=== PATIENT | male | born 1955 | race Caucasian/White ===

== ENCOUNTER 2018-08-14 15:27 | Inpatient (IN) ==
[2018-08-14] MEDS ORDERED: Aspirin 81 MG TAB.CHEW PO ONE (15:44)
[2018-08-14] MEDS ORDERED: *HR* FentaNYL (PF) 100 MCG/2 ML VIAL IVP ONE ×2 (15:45→16:40)
[2018-08-14] MEDS: Nitroglycerin 0.4 MG TAB.SUBL SL ONE ×2 (15:57→16:03)
[2018-08-14] MEDS: Nitroglycerin 25 MG/250 ML INFUS..BTL IVC SCH ×2 (15:59→21:25)
--- NOTE | 2018-08-14 16:04 | Emergency Department Note ---
Disposition Clinical Impression: Chest pain Qualifiers: Chest pain type: unspecified Qualified Code(s): R07.9 - Chest pain, unspecified Disposition: Admitted As Inpatient Condition: Fair Chest Pain HPI - General Chief Complaint: ED Chest Pain Stated Complaint: chest pain,"bp through the roof" Time Seen by Provider: 08/14/18 15:33 Source: patient Mode of arrival: ambulatory Limitations: no limitations Vital Signs Reviewed: Yes Nursing Notes Reviewed: Yes - History of Present Illness HPI Narrative: Patient with significant cardiac history including 13 previous cardiac stents as well as a pacemaker which was placed secondary to cardiac arrest presents to the emergency department for evaluation of chest pain and hypertension. Patient 's chest pain started approximately 1 PM. Patient was sitting on the couch watching television. Patient checks his blood pressure was found to be elevated. Patient did take at home nitroglycerin which has decreased his pain but it continues to return after approximately 10-15 minutes. The patient is here complaining of 10 out of 10 chest pain that is in the center of his chest described as a pressure radiating to both the left arm as well as the neck. Associated nausea and diaphoresis with chest pain is at its worse. Patient's initial EKG shows T-wave inversions throughout the anterior leads without significant elevations or depressions. A posterior EKG was performed which did not show any elevations within the 70 8V9. Despite the negative STEMI criteria call has been placed interventional cardiology to discuss the case given his significant cardiac history and small area of chest pain with previous requirement of stent placement. The patient is receiving 3 nitroglycerin as well as starting a nitroglycerin drip. Mark has been ordered chest pain is not resolved. Blood work has been ordered and patient will be admitted for further evaluation and management. Severity scale (1-10): 9 - Related Data Home Medications Medication Instructions Recorded Confirmed Carvedilol [Coreg] 25 mg PO BID 08/14/18 08/14/18 Cholecalciferol (D-3) [Vitamin D] 1,000 unit PO DAILY 08/14/18 08/14/18 Escitalopram [Lexapro] 10 mg PO DAILY 08/14/18 08/14/18 Finasteride [Proscar] 5 mg PO DAILY 08/14/18 08/14/18 Gabapentin [Neurontin] 600 mg PO TID 08/14/18 08/14/18 Lisinopril [Zestril] 20 mg PO DAILY 08/14/18 08/14/18 Pantoprazole Sodium [Protonix] 40 mg PO DAILY 08/14/18 08/14/18 Ranolazine [Ranexa] 1,000 mg PO BID 08/14/18 08/14/18 Tamsulosin [Flomax] 0.4 mg PO DAILY 08/14/18 08/14/18 Vitamin E 1,000 unit PO DAILY 08/14/18 08/14/18 lamoTRIgine [Lamictal] 100 mg PO BID 08/14/18 08/14/18 Allergies Allergy/AdvReac Type Severity Reaction Status Date / Time hydrochlorothiazide Allergy Hives Verified 08/14/18 16:04 sumatriptan [From Imitrex] Allergy Anaphylaxis Verified 08/14/18 16:04 Review of Systems: CONSTITUTIONAL: No weight loss, fever, chills, weakness or fatigue. HEENT: Eyes: No visual changes. Ears, Nose, Throat: No hearing loss, difficulty talking or unable to swallow. SKIN: No rash or itching. CARDIOVASCULAR: Chest pressure with radiation to the arm and jaw RESPIRATORY: No shortness of breath, cough or sputum. GASTROINTESTINAL: No anorexia, nausea, vomiting or diarrhea. No abdominal pain or blood. GENITOURINARY: No burning on urination or hematuria. NEUROLOGICAL: No headache, dizziness, syncope, paralysis, ataxia, numbness or tingling in the extremities. No change in bowel or bladder control. MUSCULOSKELETAL: No muscle pain, back pain, joint pain or stiffness. Physical Exam General: Moderate distress secondary to pain Head: Normocephalic Atraumatic Eyes: PERRL, EOMI ENT: Airway patent, no stridor Neck: supple Chest: Lungs clear to auscultation bilateral Cardiac: Regular rate and rhythm, no murmurs, rubs or gallops Abdomen: soft, mild right-sided tenderness, nondistended; no guarding, rebound, or tenderness to percussion Musculoskeletal: Calves symmetric, nontender Skin: No rash, normal skin tone Neuro: Alert and Oriented to person, place, and time; No focal deficit Course - Reevaluation(s) Reevaluation #1: Patient with significant cardiac history and continues to complain of severe chest pain. Patient did undergo chest pain evaluation with negative cardiac enzymes 2. Due to the continued complaints of chest pain and radiation to the back did receive a CTA to rule out dissection. No dissection seen on CAT scan. Patient will be admitted to the hospitalist service. Cardiology was consulted. - Consultations Consultation #1: Discussed with Dr. Norton at 1630. Recommends Brjlinta. Continue nitroglycerin and call back once troponin has resulted. Vital Signs Temperature 98.2 F 08/14/18 15:34 Pulse Rate 79 08/14/18 15:34 Respiratory Rate 16 08/14/18 15:34 Blood Pressure 205/136 08/14/18 15:34 O2 Sat by Pulse Oximetry 97 08/14/18 15:34 Temperature 98.6 F 08/14/18 23:33 Pulse Rate 67 08/15/18 00:00 Respiratory Rate 18 08/14/18 23:33 Blood Pressure 140/91 08/15/18 00:00 O2 Sat by Pulse Oximetry 95 08/14/18 23:33 Oxygen Delivery Oxygen Delivery Room Air Chest Pain - Medical Records Medical records reviewed: Yes I reviewed the patient's medical records. - Lab Data Lab results reviewed: Yes I reviewed the patient's lab results. Result diagrams: 08/14/18 15:58 08/14/18 15:58 Lab Results 08/14/18 08/14/18 08/14/18 Range/Units 15:58 15:58 15:58 WBC 5.2 (4.3-11.1) K/mcL RBC 4.65 (4.19-5.50) M/mcL Hgb 14.6 (12.9-16.9) g/dL Hct 42.8 (37.5-50.1) % MCV 92.0 (83.0-100.0) fL MCH 31.4 (28.0-33.3) pg MCHC 34.1 (31.6-35.5) g/dL RDW 12.8 (11.5-14.5) % Plt Count 236 (140-400) K/mcL MPV 9.3 L (9.4-12.4) fL Immature Gran % 0.2 (0-4) % Seg Neutrophils % 36.0 % Lymphocytes % 50.8 % Monocytes % 9.5 % Eosinophils % 2.5 % Basophils % 1.0 % Neutrophils # 1.9 (1.6-8.9) K/mcL Lymphocytes # 2.6 (0.6-4.6) K/mcL Monocytes # 0.5 (0.0-1.3) K/mcL Eosinophils # 0.1 (0.0-0.6) K/mcL Basophils # 0.1 (0.0-0.2) K/mcL PT 11.5 (9.4-12.1) Seconds INR 1.0 Sodium 139 (136-145) mEq/L Potassium 4.3 (3.5-5.1) mEq/L Chloride 106 (98-107) mEq/L Carbon Dioxide 26 (23-29) mEq/L BUN 16 (8-23) mg/dL Creatinine 1.20 (0.70-1.30) mg/dL Est GFR ( Amer) > 60 (> 60) Est GFR (Non-Af Amer) > 60 (> 60) BUN/Creatinine Ratio 13 (6-26) Glucose 92 (70-105) mg/dL Calculated Osmolality 289 (280-300) Calcium 9.3 (8.6-10.3) mg/dL Troponin I < 0.03 (< 0.04) ng/mL B-Natriuretic Peptide (Less than 100) pg/mL 08/14/18 08/14/18 08/14/18 Range/Units 15:58 18:21 19:45 WBC (4.3-11.1) K/mcL RBC (4.19-5.50) M/mcL Hgb (12.9-16.9) g/dL Hct (37.5-50.1) % MCV (83.0-100.0) fL MCH (28.0-33.3) pg MCHC (31.6-35.5) g/dL RDW (11.5-14.5) % Plt Count (140-400) K/mcL MPV (9.4-12.4) fL Immature Gran % (0-4) % Seg Neutrophils % % Lymphocytes % % Monocytes % % Eosinophils % % Basophils % % Neutrophils # (1.6-8.9) K/mcL Lymphocytes # (0.6-4.6) K/mcL Monocytes # (0.0-1.3) K/mcL Eosinophils # (0.0-0.6) K/mcL Basophils # (0.0-0.2) K/mcL PT (9.4-12.1) Seconds INR Sodium (136-145) mEq/L Potassium (3.5-5.1) mEq/L Chloride (98-107) mEq/L Carbon Dioxide (23-29) mEq/L BUN (8-23) mg/dL Creatinine (0.70-1.30) mg/dL Est GFR ( Amer) (> 60) Est GFR (Non-Af Amer) (> 60) BUN/Creatinine Ratio (6-26) Glucose (70-105) mg/dL Calculated Osmolality (280-300) Calcium (8.6-10.3) mg/dL Troponin I < 0.03 < 0.03 (< 0.04) ng/mL B-Natriuretic Peptide 21 (Less than 100) pg/mL - Radiology Data Radiology results reviewed: Yes I reviewed the patient's radiology results. - EKG Data EKG attestation: Yes I reviewed and interpreted this EKG. EKG results narrative: EKG shows sinus rhythm with heart rate of 82. OH interval 166. QRS 133. QTC 450. Patient has no significant ST elevations or depressions but does have T- wave inversions throughout V1 and V3. These are new from previous EKG of . Repeat EKG with posterior leads shows no significant elevations throughout the v7 the v8 V 9.
[2018-08-14] MEDS ORDERED: 0.9 % Sodium Chloride 500 ML IVC ONE (16:05)
[2018-08-14 16:18] LABS: Basophils # 0.1 K/mcL (0.0-0.2); Eosinophils # 0.1 K/mcL (0.0-0.6); Eosinophils % 2.5 %; Hematocrit 42.8 % (37.5-50.1); Hemoglobin 14.6 g/dL (12.9-16.9); Immature Granulocytes % 0.2 % (0-4); Lymphocytes # 2.6 K/mcL (0.6-4.6); Lymphocytes % 50.8 %; Mean Corpuscular HGB Conc 34.1 g/dL (31.6-35.5); Mean Corpuscular Hemoglobin 31.4 pg (28.0-33.3); Mean Platelet Volume 9.3 fL (9.4-12.4); Monocytes # 0.5 K/mcL (0.0-1.3); Monocytes % 9.5 %; Neutrophils # 1.9 K/mcL (1.6-8.9); Platelet Count 236 K/mcL (140-400); Red Blood Count 4.65 M/mcL (4.19-5.50); Red Cell Distribution Width 12.8 % (11.5-14.5)
[2018-08-14] MEDS ORDERED: *HR* Ticagrelor 90 MG TABLET PO STA (16:29)
[2018-08-14 16:37] LABS: Troponin I < 0.03 ng/mL (< 0.04)
[2018-08-14 16:41] LABS: BUN/Creatinine Ratio 13 (6-26); Blood Urea Nitrogen 16 mg/dL (8-23); Calcium 9.3 mg/dL (8.6-10.3); Carbon Dioxide 26 mEq/L (23-29); Chloride 106 mEq/L (98-107); Glucose 92 mg/dL (70-105); Osmolality,Calculated 289 (280-300); Potassium 4.3 mEq/L (3.5-5.1); Prothrombin Time 11.5 Seconds (9.4-12.1); Sodium 139 mEq/L (136-145); eGFR For Non-African Americans > 60 (> 60)
[2018-08-14] MEDS ORDERED: Isovue-370 500 ML INFUS..BTL IV ONE ×2 (16:41→17:01)
[2018-08-14] MEDS ORDERED: *HR* OxyCODONE Immed Rel 5 MG TABLET PO STA (18:16)
[2018-08-14] MEDS ORDERED: Acetaminophen 325 MG TABLET PO PRN (18:46)
[2018-08-14] MEDS ORDERED: Naloxone 0.4 MG/ML INJ IVP PRN (18:46)
[2018-08-14] MEDS ORDERED: *HR* OxyCODONE Immed Rel 5 MG TABLET PO PRN (18:48)
--- NOTE | 2018-08-14 18:53 | Internal Med History&Physical ---
Date of Encounter: 08/14/18 Time of Encounter: 18:51 Internal Medicine - H&P: HPI Admitted From: Home Plans for Post Hospital Care: Home History of present illness: Mr. Bingham is a 63 year old male with significant cardiac history including 13 previous cardiac stents as well as a pacemaker which was placed secondary to cardiac arrest presents to the emergency department for evaluation of chest pain and hypertension. Patient's chest pain started approximately 1 PM. Patient was sitting on the couch watching television. Patient checks his blood pressure was found to be elevated. Patient did take at home nitroglycerin which has decreased his pain but it continues to return after approximately 10- 15 minutes. The patient is here complaining of 10 out of 10 chest pain that is in the center of his chest described as a pressure radiating to both the left arm as well as the neck. Associated nausea and diaphoresis with chest pain is at its worse. Patient's initial EKG shows T-wave inversions throughout the anterior leads without significant elevations or depressions. A posterior EKG was performed which did not show any elevations within the 70 8V9. Despite the negative STEMI criteria call has been placed interventional cardiology to discuss the case given his significant cardiac history and small area of chest pain with previous requirement of stent placement. The patient is receiving 3 nitroglycerin as well as starting a nitroglycerin drip. Blood work has been ordered and patient will be admitted for further evaluation and management. Past Med Surg Social Fam HX - Past Medical History Medical history: hyperlipidemia, hypertension, myocardial infarction Additional medical history: 13 cardiac stents. Pacemaker. Hemaplegic migraines Psychiatric history: depression - Past Surgical History Additional surgical history: Left rotator cuff repair - Social History Smoking Status: Never smoker Smokeless Tobacco Status: No Alcohol use: none Drug use: marijuana - Family History Father Family Member Ethnicity: Non- Living Status: Age at : 80 Cause of : ND Hx Family Neurologic Disorders: Yes (Alzheimers) Mother Family Member Ethnicity: Non- Living Status: Age at : 76 Hx Family Cardiac Disorders: Yes (ND, Quad bypass) Hx Family Neurologic Disorders: Yes (Alzheimers) Brother Living Status: Age at : 46 Cause of : Complications from AIDS Internal Medicine - H&P: Meds Carvedilol [Coreg] 25 mg PO BID 08/14/18 [History] Cholecalciferol (D-3) [Vitamin D] 1,000 unit PO DAILY 08/14/18 [History] Escitalopram [Lexapro] 10 mg PO DAILY 08/14/18 [History] Finasteride [Proscar] 5 mg PO DAILY 08/14/18 [History] Gabapentin [Neurontin] 600 mg PO TID 08/14/18 [History] Lisinopril [Zestril] 20 mg PO DAILY 08/14/18 [History] Pantoprazole Sodium [Protonix] 40 mg PO DAILY 08/14/18 [History] Ranolazine [Ranexa] 1,000 mg PO BID 08/14/18 [History] Tamsulosin [Flomax] 0.4 mg PO DAILY 08/14/18 [History] Vitamin E 1,000 unit PO DAILY 08/14/18 [History] lamoTRIgine [Lamictal] 1,000 mg PO BID 08/14/18 [History] 3 Allergy/AdvReac Type Severity Reaction Status Date / Time hydrochlorothiazide Allergy Hives Verified 08/14/18 16:04 sumatriptan [From Imitrex] Allergy Anaphylaxis Verified 08/14/18 16:04 All Systems PM: A 10-system review of systems was performed and is negative for pertinent findings except as documented above in the HPI. Review of systems: REVIEW OF SYSTEMS: CONSTITUTIONAL: No weight loss, fever, chills, weakness or fatigue. HEENT: Eyes: No visual loss, blurred vision, double vision or yellow sclerae. Ears, Nose, Throat: No hearing loss, sneezing, congestion, runny nose or sore throat. SKIN: No rash or itching. CARDIOVASCULAR: see HPI. RESPIRATORY: No shortness of breath, cough or sputum. GASTROINTESTINAL: No anorexia, nausea, vomiting or diarrhea. No abdominal pain or blood. GENITOURINARY: No dysuria, urgency, or frequency. NEUROLOGICAL: No headache, dizziness, syncope, paralysis, ataxia, numbness or tingling in the extremities. No change in bowel or bladder control. MUSCULOSKELETAL: No muscle, back pain, joint pain or stiffness. HEMATOLOGIC: No anemia, bleeding or bruising. LYMPHATICS: No enlarged nodes. No history of splenectomy. PSYCHIATRIC: No history of depression or anxiety. ENDOCRINOLOGIC: No reports of sweating, cold or heat intolerance. No polyuria or polydipsia. - Constitutional Vitals: Temp Pulse Resp BP Pulse Ox 98.2 F 77 16 140/93 98 08/14/18 16:37 08/14/18 18:45 08/14/18 18:45 08/14/18 18:45 08/14/18 18:45 General appearance: Present: cooperative, A&O X 3, answers questions appropriately Exam: PHYSICAL EXAMINATION: GENERAL APPEARANCE: The patient is alert, oriented and in no acute distress. HEENT: Head is normocephalic. The sinuses are nontender. Pupils are equal and reactive. The nares are patent. Oropharynx clear without lesions. NECK: Supple without lymphadenopathy. HEART: Regular rate and rhythm. LUNGS: No crackles or wheezes are heard. ABDOMEN: Soft, nontender, nondistended with good bowel sounds heard. Inguinal area is normal. EXTREMITIES: Without cyanosis, clubbing or edema. NEUROLOGICAL: Gross nonfocal. SKIN: Warm and dry without any rash. Internal Med - H&P Results - Labs CBC & Chem 7: 08/14/18 15:58 08/14/18 15:58 Labs: Short CBC 08/14/18 Range/Units 15:58 WBC 5.2 (4.3-11.1) K/mcL Hgb 14.6 (12.9-16.9) g/dL Hct 42.8 (37.5-50.1) % Plt Count 236 (140-400) K/mcL Neutrophils # 1.9 (1.6-8.9) K/mcL BMP 08/14/18 15:58 Sodium 139 Potassium 4.3 Chloride 106 Carbon Dioxide 26 BUN 16 Creatinine 1.20 Glucose 92 Calcium 9.3 Cardiac Enzymes 08/14/18 Range/Units 15:58 Troponin I < 0.03 (< 0.04) ng/mL - Impressions ITS Impressions Chest X-Ray 08/14/18 15:35 IMPRESSION: Blunting of right costophrenic sulcus could suggest small right pleural effusion. Continued follow-up could be helpful for further evaluation. D/ / Fidencio Ling / Fidencio Ling Interpreting Provider: Fidencio Ling Angiography CT 08/14/18 16:41 IMPRESSION: No evidence of thoracic or abdominal aortic aneurysm or dissection. Ectasia of the ascending thoracic aorta. No evidence of acute pulmonary embolism. No active lung parenchymal or pleural disease. No acute abnormalities in the abdomen or pelvis. D/ / 08/14/2018 17:39:58 Rosita Vaughan MD / hannah Interpreting Provider: Rosita Vaughan MD - Assessment and plan (1) Chest pain Current Visit: Yes Status: Acute Assessment and plan: 63-year-old male with history of CAD status post multiple stents placement presented with acute onset of left-sided chest pain. Troponin was negative at the ED, EKG revealed sinus rhythm with right bundle branch block, no acute ST-T change. CT of the chest revealed no PE, no aortic dissection or aneurysm, no other acute abnormalities in both lungs. - Patient symptoms was suspicious for unstable angina, patient was started on nitro drip, he received 1 dose of Brilinta at the ED. Patient chest pain improved. - We will continue cycle troponin, telemetry monitoring, EKG as needed. - Cardiology consulted. Qualifiers: Chest pain type: unspecified Qualified Code(s): R07.9 - Chest pain, unspecified (2) CAD (coronary artery disease) Current Visit: No Status: Chronic Assessment and plan: Continue home medication aspirin, patient received 1 dose of Brilinta at the ED , continue nitro drip, consult cardiology. Qualifiers: Coronary Disease-Associated Artery/Lesion type: [place] artery [place] vs. transplanted heart: [place] heart Associated angina: with unstable angina Qualified Code(s): I25.110 - Atherosclerotic heart disease of [place] coronary artery with unstable angina pectoris (3) HTN (hypertension) Current Visit: No Status: Chronic Assessment and plan: BP was notably high at the ED, continue home medication, continue nitro drip, continue monitor BP. Qualifiers: Hypertension type: essential hypertension Qualified Code(s): I10 - Essential (primary) hypertension (4) DVT prophylaxis Current Visit: Yes Status: Acute Assessment and plan: Heparin subcutaneous. - Time Spent With Patient Total time spent is greater than 50% in coordination of care (as documented) at patient's floor/unit and/or counseling patient: Greater than 35 minutes
[2018-08-14] MEDS: Ranolazine 500 MG TAB.ER.12H PO SCH (21:24)
[2018-08-14] MEDS: Gabapentin 300 MG CAPSULE PO SCH (21:24)
[2018-08-14] MEDS: lamoTRIgine 100 MG TABLET PO SCH (21:24)
[2018-08-14] MEDS: *HR* OxyCODONE Immed Rel 5 MG TABLET PO PRN (22:52)
[2018-08-15] MEDS ORDERED: *HR* FentaNYL (PF) 100 MCG/2 ML VIAL IVP ONE ×3 (00:52→06:58)
[2018-08-15 03:04] LABS: Basophils % 0.6 %; Eosinophils # 0.2 K/mcL (0.0-0.6); Eosinophils % 2.6 %; Hematocrit 36.2 % (37.5-50.1); Immature Granulocytes % 0.3 % (0-4); Lymphocytes # 2.3 K/mcL (0.6-4.6); Lymphocytes % 31.3 %; Mean Corpuscular Hemoglobin 31.1 pg (28.0-33.3); Mean Corpuscular Volume 91.4 fL (83.0-100.0); Monocytes # 0.8 K/mcL (0.0-1.3); Monocytes % 10.6 %; Neutrophils # 3.9 K/mcL (1.6-8.9); Platelet Count 212 K/mcL (140-400); Red Blood Count 3.96 M/mcL (4.19-5.50); Red Cell Distribution Width 12.7 % (11.5-14.5); Segmented Neutrophils % 54.6 %
[2018-08-15 03:30] LABS: BUN/Creatinine Ratio 11 (6-26); Blood Urea Nitrogen 14 mg/dL (8-23); Calcium 8.7 mg/dL (8.6-10.3); Carbon Dioxide 29 mEq/L (23-29); Chloride 101 mEq/L (98-107); Chol/HDL Ratio 6.7 (0-4.9); Cholesterol 253 mg/dL (< 200); Glucose 124 mg/dL (70-105); HDL Cholesterol 38 mg/dL (40-59); Magnesium 1.8 mg/dL (1.6-2.6); Osmolality,Calculated 286 (280-300); Potassium 3.8 mEq/L (3.5-5.1); Sodium 137 mEq/L (136-145); Triglycerides 451 mg/dL (< 150); eGFR For Non-African Americans 59 (> 60)
[2018-08-15 03:34] LABS: Hemoglobin 12.3 g/dL (12.9-16.9)
[2018-08-15] MEDS: Nitroglycerin 25 MG/250 ML INFUS..BTL IVC SCH (04:03)
[2018-08-15] MEDS ORDERED: Prochlorperazine 10 MG/2 ML VIAL IVP ONE (06:56)
[2018-08-15] MEDS ORDERED: Dexamethasone 4 MG/ML VIAL IVP ONE (06:56)
--- NOTE | 2018-08-15 07:36 | Event Note ---
Date of Encounter: 08/15/18 Time of Encounter: 07:26 Mr. Bingham hit his call light at approximately 06:30 this morning and told the nurse he was having a "hemiplegic migraine". States he has a hx of these for the past 8 years with the most recent episode 10 days ago. States he has been worked up for these before, including at the [facility] and a hospital in [place]. Does admit to a remote hx of CVA. Pt states the only thing that helps these migraines are a cocktail of Compazine, Benadryl, steroids, and pain medicine. Dr. Michael, the current night resident, ordered this cocktail which was being administered during the encounter with this provider. CT head was also ordered. On exam there is an obvious left sided facial drop with some slurred speech. This seemed to improve throughout the encounter. Left arm is resting across his chest, states he is unable to move it, but sensation is intact. Sensation is also intact in the left leg and foot, however he is unable to move those as well. He is spontaneously moving his right extremities without difficulty. Pt is not in acute distress at this time. Awaiting results. Will continue to monitor closely.
[2018-08-15] MEDS: Lisinopril 20 MG TABLET PO SCH (08:41)
[2018-08-15] MEDS: Cholecalciferol (D-3) 1,000 UNIT TABLET PO SCH (08:41)
[2018-08-15] MEDS: lamoTRIgine 100 MG TABLET PO SCH ×2 (08:41→20:37)
[2018-08-15] MEDS: Gabapentin 300 MG CAPSULE PO SCH ×3 (08:41→20:32)
[2018-08-15] MEDS: Ranolazine 500 MG TAB.ER.12H PO SCH ×2 (08:41→20:31)
[2018-08-15] MEDS: Finasteride 5 MG TABLET PO SCH (08:41)
[2018-08-15] MEDS ORDERED: *HR* Heparin 5,000 UNIT/ML VIAL IVP ONE (08:58)
[2018-08-15] MEDS ORDERED: *HR* Heparin 5,000 UNIT/ML VIAL IVP PRN ×2 (08:58)
[2018-08-15] MEDS ORDERED: Heparin 25,000 UNIT/500 ML D5W 25,000 UNIT/500 ML BAG IVC SCH (09:00)
--- NOTE | 2018-08-15 09:03 | Internal Med Progress Note ---
<JoshuaFracisco A - Last Filed: 08/15/18 13:31> Hospitalist Progress Note - Encounter Date of Encounter: 08/15/18 Time of Encounter: 10:45 - Subjective Interval History: Mr. Bingham is a 63M with PMH of CAD with previous MD, 13 stents and a pacemaker, HTN, and hemiplegic migraines. He presented to the ED yesterday complaining of chest pain refractory to home doses of nitroglycerin. He was reportedly sitting on the couch watching tv when he felt a squeezing sensation in his chest. He did admit to some associated nausea and diaphoresis. Patient's EKG in the ED showed T-wave inversions throughout the anterior leads without significant elevations or depressions. A posterior EKG was performed which did not show any elevations within the 70 8V9. He was given a dose of Brilinta per cardio recs and was placed on a nitro drip. Earlier this morning the pt reported an episode of stabbing pain in his occiput with starburts, followed by left arm and leg weakness, left facial droop and slurred speech. He states these symptoms are related to his hemiplegic migraines, which he has had for the past [address] with Dr Jauregui in the outpatient setting. These hemiplegic migraines are relieved by a cocktail of Compazine, Benadryl, steroids , and pain medication. During the encounter with this provider, pt was resting comfortably in bed. Earlier symptoms of slurred speech, facial drop, and unilateral weakness have all resolved completely. Pt states he feels better from the migraine standpoint , but is still expereincing 10/10 chest pain despite the Nitro drip. Continues to describe the pain as "squeezing". Denies any fever, chills, shortness of breath, numbness, tingling, nausea, vomiting, or weakness. - Exam Vitals: Temp Pulse Resp BP Pulse Ox 98.2 F 68 18 135/113 95 08/15/18 03:03 08/15/18 05:00 08/15/18 03:03 08/15/18 05:00 08/15/18 03:03 Exam: Constitutional: well developed, well nourished, pleasant, no acute distress Head: atraumatic, normocephalic Eyes: PERRL, EOMI, sclera anicteric Neck: supple, trachea midline, no lymphadenopathy Lungs: CTA bilaterally. non-labored breathing. no wheezes, rales, or rhonchi Heart: RRR +S1 +S2. no murmurs, clicks, or rubs appreciated. GI: abdomen soft, non-tender, non-distended. Extremities: moving all 4 spontaneously. No cyanosis or edema. Radial pulses palpable and symmetrical Neuro: A&Ox3. No facial droop. No speech difficulty or abnormality. Strength intact in all 4 extremities. No focal deficits. Skin: warm, dry, intact - Assessment and Plan (1) Chest pain Current Visit: Yes Status: Acute Assessment and Plan: Significant history of CAD s/p 13 stents and pacemaker Serial troponins negative EKG from ED revealed sinus rhythm with right bundle branch block, no acute ST-T change CT of the chest revealed no PE, no aortic dissection or aneurysm, no other acute abnormalities in both lungs. Suspicious for unstable angina, patient was started on nitro drip, he received 1 dose of Brilinta at the ED. Patient chest pain improved for short periods of time with Fentanyl Cardiology is on board Echo pending On heparin and nitro drip Per cardio: may consider chemical stress test. Hold off on invasive cardiac procedures at this time with stroke-like symptoms (2) CAD (coronary artery disease) Current Visit: No Status: Chronic Assessment and Plan: Continue ASA and Coreg Continue home Ranexa (3) HTN (hypertension) Current Visit: No Status: Chronic Assessment and Plan: 138/77 during this encounter Continue to monitor closely Continue Lisinopril (4) DVT prophylaxis Current Visit: Yes Status: Acute Assessment and Plan: On heparin drip (5) Hemiplegic migraine Current Visit: Yes Status: Acute Assessment and Plan: 8 year hx of hemiplegic migraine Pt describes typical aura as stabbing occipital pain with starbursts in his vision, then feels very weak in his left extremities. States his most recent migraine was approximately [address] Jauregui in outpatient setting CT head this morning was negative Symptoms from this morning completely resolved. Moving all 4 extremities spontaneously. No slurred speech or facial droop. Cocktail of Compazine, Benadry, Decadron, and pain medication as needed for further episodes. DVT Prophylaxis: on heparin drip - Time Spent with Patient Total time spent is greater than 50% in coordination of care (as documented) at patient's floor/unit and/or counseling patient: Internal Medicine: Result - Labs CBC & Chem 7: 08/15/18 02:54 08/15/18 02:54 Labs: Short CBC 08/15/18 Range/Units 02:54 WBC 7.2 (4.3-11.1) K/mcL Hgb 12.3 L D (12.9-16.9) g/dL Hct 36.2 L (37.5-50.1) % Plt Count 212 (140-400) K/mcL Neutrophils # 3.9 (1.6-8.9) K/mcL BMP 08/15/18 02:54 Sodium 137 Potassium 3.8 Chloride 101 Carbon Dioxide 29 BUN 14 Creatinine 1.25 Glucose 124 H Calcium 8.7 Cardiac Enzymes 08/14/18 08/15/18 Range/Units 23:55 02:54 Troponin I < 0.03 < 0.03 (< 0.04) ng/mL - ABG Interpretation ABG results: PT/INR, D-dimer PT 11.5 Seconds (9.4-12.1) 08/14/18 15:58 - Impressions Impressions Head CT 08/15/18 06:55 IMPRESSION: No acute intracranial abnormality with chronic ischemic findings as described. RECOMMENDATIONS: Consider further assessment with MRI brain as clinically warranted. D/ / Karen Ruvalcaba MD / Karen Ruvalcaba MD Interpreting Provider: Karen Ruvalcaba MD Consult Discharge Plan - Plan Referrals: Louisa Hendrickson MD [Primary Care Provider] - <Apple Tran - Last Filed: 08/15/18 19:13> Hospitalist Progress Note - Encounter Date of Encounter: 08/15/18 - Exam Vitals: Temp Pulse Resp BP Pulse Ox 98.3 F 70 18 158/97 94 08/15/18 16:36 08/15/18 17:54 08/15/18 17:54 08/15/18 16:36 08/15/18 17:54 - Assessment and Plan (1) Chest pain Current Visit: Yes Status: Acute (2) CAD (coronary artery disease) Current Visit: No Status: Chronic (3) HTN (hypertension) Current Visit: No Status: Chronic (4) DVT prophylaxis Current Visit: Yes Status: Acute (5) Hemiplegic migraine Current Visit: Yes Status: Acute - Time Spent with Patient Total time spent is greater than 50% in coordination of care (as documented) at patient's floor/unit and/or counseling patient: Internal Medicine: Result - Labs CBC & Chem 7: 08/15/18 02:54 08/15/18 02:54 - ABG Interpretation ABG results: PT/INR, D-dimer PT 11.2 Seconds (9.4-12.1) 08/15/18 09:17 - Attending Attestation I examined this patient and my medical decision-making was reviewed with the Resident Physician Dr. Lewis. I agree with the documented findings, disposition and treatment plan as described except to the extent set forth below. Mr. Bingham is a 63 year old male with history of multiple cardiac risk factors and extensive coronary artery disease status post 13 stents in the past. Last heart catheter was 2 years ago which was unremarkable according to the patient at [facility] now he presented to ER with atypical chest pain. He was admitted in the hospital and placed him on tele, checked serial tropnin which were negative. EKG did not show any ischemic changes. Pt was started on Nitro gtt and heparin gtt in suspect of unstable angina. However pt CP was improved by IV narcotics ( Fentanyl / Dilaudid only ). He did c.o head aches too. So d/c Nitro gtt, and his CP seems to be atypical so d/c heparin gtt. Since he is high risk pt for ACS, will do a stress test on Friday. Medically stable to transfer to tele floor. <Fracisco Lewis - Last Filed: 08/15/18 13:31> (1) Chest pain Qualifiers: Chest pain type: unspecified Qualified Code(s): R07.9 - Chest pain, unspecified (2) CAD (coronary artery disease) Qualifiers: Coronary Disease-Associated Artery/Lesion type: [place] artery [place] vs. transplanted heart: [place] heart Associated angina: with unstable angina Qualified Code(s): I25.110 - Atherosclerotic heart disease of [place] coronary artery with unstable angina pectoris (3) HTN (hypertension) Qualifiers: Hypertension type: essential hypertension Qualified Code(s): I10 - Essential (primary) hypertension (5) Hemiplegic migraine Qualifiers: Status migrainosus presence: without status migrainosus Intractability: not intractable Qualified Code(s): G43.409 - Hemiplegic migraine, not intractable, without status migrainosus <Apple Tran - Last Filed: 08/15/18 19:13> (1) Chest pain Qualifiers: Chest pain type: unspecified Qualified Code(s): R07.9 - Chest pain, unspecified (2) CAD (coronary artery disease) Qualifiers: Coronary Disease-Associated Artery/Lesion type: [place] artery [place] vs. transplanted heart: [place] heart Associated angina: with unstable angina Qualified Code(s): I25.110 - Atherosclerotic heart disease of [place] coronary artery with unstable angina pectoris (3) HTN (hypertension) Qualifiers: Hypertension type: essential hypertension Qualified Code(s): I10 - Essential (primary) hypertension (5) Hemiplegic migraine Qualifiers: Status migrainosus presence: without status migrainosus Intractability: not intractable Qualified Code(s): G43.409 - Hemiplegic migraine, not intractable, without status migrainosus
[2018-08-15 09:33] LABS: Heparin anti-factor XA UFH 0.01 IU/mL (0.30-0.70)
[2018-08-15 09:34] LABS: Prothrombin Time 11.2 Seconds (9.4-12.1)
--- NOTE | 2018-08-15 11:21 | Cardiology Consult Note ---
Date of Encounter: 08/15/18 Time of Encounter: 11:18 Assessment and Plan (1) Chest pain Current Visit: Yes Status: Acute Atypical chest pain the setting of strokelike symptoms Brain MRI to rule out CVA is reasonable prior to any invasive cardiac procedures Negative cardiac markers Echo pending Consider a chemical stress test to rule out ischemia Qualifiers: Chest pain type: unspecified Qualified Code(s): R07.9 - Chest pain, unspecified Discussion w patient/family: The assessment and plan as outlined above was discussed with the patient and/or family members who expressed understanding and agreement. All questions were answered. Thank you for involving us in the care of your patient. Please call with any questions. History of Present Illness Consult date: 08/15/18 Consult reason: Chest Pain Chief complaint: Chest Pain History of present illness: Mr. Bingham is a 63 year old male with history of multiple cardiac risk factors and extensive coronary artery disease status post 13 stents in the past. Last heart catheter was 2 years ago which was unremarkable according to the patient at [facility]. Patient states chest pain new in onset started at 1 AM on and off waxing and waning 10 out of 10 retrosternal radiating to his left upper extremity associated with nausea and diaphoresis. EKG shows some ST changes anteriorly. Cardiac enzymes unremarkable and BNP is 21. Currently is resting comfortably denies any chest pain, shortness breath, descensus, orthopnea, PND, presyncope or syncope We will obtain records for review of his last LHC obtain an echocardiogram to evaluate for structural heart abnormalities and accordingly we will decide upon noninvasive risk stratification with a chemical stress test versus a LHC. I do prefer a noninvasive approach due to his presentation with stroke like symptoms. Will discuss with primary team. A brain MRI is reasonable to rule out CVA prior to a left heart cath Past Med Surg Social Fam HX - Past Medical History Medical history: hyperlipidemia, hypertension, myocardial infarction Additional medical history: 13 cardiac stents. Pacemaker. Hemaplegic migraines Psychiatric history: depression - Past Surgical History Additional surgical history: Left rotator cuff repair - Social History Smoking Status: Never smoker Smokeless Tobacco Status: No Alcohol use: none Drug use: marijuana - Family History Father Family Member Ethnicity: Non- Living Status: Age at : 80 Cause of : [place] Hx Family Neurologic Disorders: Yes (Alzheimers) Mother Family Member Ethnicity: Non- Living Status: Age at : 76 Hx Family Cardiac Disorders: Yes ([place], Quad bypass) Hx Family Neurologic Disorders: Yes (Alzheimers) Brother Living Status: Age at : 46 Cause of : Complications from AIDS Medications and Allergies Carvedilol [Coreg] 25 mg PO BID 08/14/18 [History] Cholecalciferol (D-3) [Vitamin D] 1,000 unit PO DAILY 08/14/18 [History] Escitalopram [Lexapro] 10 mg PO DAILY 08/14/18 [History] Finasteride [Proscar] 5 mg PO DAILY 08/14/18 [History] Gabapentin [Neurontin] 600 mg PO TID 08/14/18 [History] Lisinopril [Zestril] 20 mg PO DAILY 08/14/18 [History] Pantoprazole Sodium [Protonix] 40 mg PO DAILY 08/14/18 [History] Ranolazine [Ranexa] 1,000 mg PO BID 08/14/18 [History] Tamsulosin [Flomax] 0.4 mg PO DAILY 08/14/18 [History] Vitamin E 1,000 unit PO DAILY 08/14/18 [History] lamoTRIgine [Lamictal] 100 mg PO BID 08/14/18 [History] 3 Allergy/AdvReac Type Severity Reaction Status Date / Time hydrochlorothiazide Allergy Hives Verified 08/14/18 16:04 sumatriptan [From Imitrex] Allergy Anaphylaxis Verified 08/14/18 16:04 All Systems Review: The remainder of the systems were reviewed and are negative Physical Examination Vital Signs, Last 4 Hours Temp Pulse Resp BP Pulse Ox 08/15/18 10:58 98.2 F 69 16 151/96 95 08/15/18 09:54 147/79 08/15/18 09:30 138/77 08/15/18 09:15 128/78 08/15/18 09:00 124/77 08/15/18 08:45 150/89 General: Conversant, No Apparent Distress HEENT: Atraumatic, Normocephaly, Mucus Membranes Moist Neck: No JVD, Normal carotid pulses Cardiac: Reg Rate and Rhythm, Normal S1 and S2, No Murmur Lungs: Normal Breath Sounds, No Wheeze, Rales, Rhonchi Neuro: Alert and responsive, No focal deficits noted Abdomen: Soft, Non-Tender Skin: No rashes noted on visualized skin Musculoskeletal: No Chest Wall Tenderness Extremities: No Clubbing, No Cyanosis, No Edema, Normal Pulses Results 08/15/18 02:54 08/15/18 02:54 Lab Results 08/14/18 08/15/18 08/15/18 23:55 02:54 02:54 WBC 7.2 Hgb 12.3 L D Hct 36.2 L Plt Count 212 INR Sodium Potassium Chloride Carbon Dioxide BUN Creatinine Glucose Calcium Magnesium Troponin I < 0.03 < 0.03 08/15/18 08/15/18 02:54 09:17 WBC Hgb Hct Plt Count INR 1.0 Sodium 137 Potassium 3.8 Chloride 101 Carbon Dioxide 29 BUN 14 Creatinine 1.25 Glucose 124 H Calcium 8.7 Magnesium 1.8 Troponin I Consult Discharge Plan - Plan Referrals: Louisa Hendrickson MD [Primary Care Provider] -
[2018-08-15] MEDS: *HR* FentaNYL (PF) 100 MCG/2 ML VIAL IVP PRN ×3 (12:47→22:06)
[2018-08-15] MEDS: *HR* OxyCODONE Immed Rel 5 MG TABLET PO PRN ×2 (16:08→20:32)
[2018-08-16 00:45] LABS: Basophils % 0.1 %; Hemoglobin 13.6 g/dL (12.9-16.9); Immature Granulocytes % 0.3 % (0-4); Lymphocytes # 1.5 K/mcL (0.6-4.6); Lymphocytes % 15.8 %; Mean Corpuscular HGB Conc 34.9 g/dL (31.6-35.5); Mean Corpuscular Hemoglobin 31.4 pg (28.0-33.3); Mean Corpuscular Volume 90.1 fL (83.0-100.0); Mean Platelet Volume 9.3 fL (9.4-12.4); Monocytes # 0.6 K/mcL (0.0-1.3); Monocytes % 6.2 %; Neutrophils # 7.5 K/mcL (1.6-8.9); Platelet Count 226 K/mcL (140-400); Red Blood Count 4.33 M/mcL (4.19-5.50); Red Cell Distribution Width 12.7 % (11.5-14.5); Segmented Neutrophils % 77.6 %
[2018-08-16] MEDS: *HR* OxyCODONE Immed Rel 5 MG TABLET PO PRN ×6 (00:48→22:41)
[2018-08-16 01:05] LABS: BUN/Creatinine Ratio 11 (6-26); Blood Urea Nitrogen 13 mg/dL (8-23); Calcium 9.2 mg/dL (8.6-10.3); Carbon Dioxide 23 mEq/L (23-29); Chloride 104 mEq/L (98-107); Glucose 141 mg/dL (70-105); Osmolality,Calculated 282 (280-300); Potassium 3.9 mEq/L (3.5-5.1); Sodium 135 mEq/L (136-145); eGFR For Non-African Americans > 60 (> 60)
[2018-08-16] MEDS: *HR* FentaNYL (PF) 100 MCG/2 ML VIAL IVP PRN ×2 (02:44→07:14)
[2018-08-16] MEDS: Ranolazine 500 MG TAB.ER.12H PO SCH ×2 (09:41→20:50)
[2018-08-16] MEDS: Lisinopril 20 MG TABLET PO SCH (09:41)
[2018-08-16] MEDS: Cholecalciferol (D-3) 1,000 UNIT TABLET PO SCH (09:41)
[2018-08-16] MEDS: lamoTRIgine 100 MG TABLET PO SCH ×2 (09:42→20:50)
[2018-08-16] MEDS: Finasteride 5 MG TABLET PO SCH (09:42)
[2018-08-16] MEDS: Gabapentin 300 MG CAPSULE PO SCH ×3 (09:42→20:50)
--- NOTE | 2018-08-16 10:05 | Internal Med Progress Note ---
<JoshuaCorpus Christi A - Last Filed: 08/16/18 11:32> Hospitalist Progress Note - Encounter Date of Encounter: 08/16/18 Time of Encounter: 11:32 - Subjective Interval History: Mr. Bingham is a 63M with PMH of CAD with previous MO, 13 stents and a pacemaker, HTN, and hemiplegic migraines. He presented to the ED on 08/14 complaining of chest pain refractory to home doses of nitroglycerin. He was reportedly sitting on the couch watching tv when he felt a squeezing sensation in his chest. He did admit to some associated nausea and diaphoresis at that time. Patient's EKG in the ED showed T-wave inversions throughout the anterior leads without significant elevations or depressions. A posterior EKG was performed which did not show any elevations within the 70 8V9. He was given a dose of Brilinta per cardio recs and was placed on a nitro drip. Yesterday morning the pt reported an episode of stabbing pain in his occiput with starburts, followed by left arm and leg weakness, left facial droop and slurred speech. He states these symptoms are related to his hemiplegic migraines, which he has had for the past 8 years [address] follows with Dr Jauregui in the outpatient setting. These hemiplegic migraines are relieved by a cocktail of Compazine, Benadryl, steroids, and pain medication. The weakness, facial droop, slurred speech, and positive Babinski sign on the left had all completely resolved yesterday within 1-2 hours of aforementioned cockatil administration. Pt seen and examined at bedside. Pt was resting comfortably in bed and in no acute distress. No acute events overnight. States his chest pain is a 7/10 and continues to describe it as "squeezing". Denies any fever, chills, shortness of breath, numbness, tingling, nausea, vomiting, or weakness. States he has not had a headache since yesterday. - Exam Vitals: Temp Pulse Resp BP Pulse Ox 99.0 F 71 16 134/80 97 08/16/18 08:26 08/16/18 08:26 08/16/18 08:26 08/16/18 08:26 08/16/18 08:26 Exam: Constitutional: well developed, well nourished, pleasant, no acute distress Head: atraumatic, normocephalic Eyes: PERRL, EOMI, sclera anicteric Neck: supple, trachea midline, no lymphadenopathy Lungs: CTA bilaterally. non-labored breathing. no wheezes, rales, or rhonchi Heart: RRR +S1 +S2. no murmurs, clicks, or rubs appreciated. GI: abdomen soft, non-tender, non-distended. Extremities: moving all 4 spontaneously. No cyanosis or edema. Radial pulses palpable and symmetrical Neuro: A&Ox3. No facial droop. No speech difficulty or abnormality. Strength intact in all 4 extremities. No focal deficits. Skin: warm, dry, intact - Assessment and Plan (1) Chest pain Current Visit: Yes Status: Acute Assessment and Plan: Significant history of CAD s/p 13 stents and pacemaker Serial troponins negative EKG from ED revealed sinus rhythm with right bundle branch block, no acute ST-T change CT of the chest revealed no PE, no aortic dissection or aneurysm, no other acute abnormalities in both lungs. Suspicious for unstable angina, patient was started on nitro drip, he received 1 dose of Brilinta at the ED. Patient chest pain improved for short periods of time with Fentanyl Cardiology is on board Stopped heparin and nitro drips per recommendations Transitioned to po oxycodone for continued pain Ordered exercise stress test to evaluate for ischemia (2) CAD (coronary artery disease) Current Visit: No Status: Chronic Assessment and Plan: Continue ASA and Coreg Continue home Ranexa (3) HTN (hypertension) Current Visit: No Status: Chronic Assessment and Plan: 130/81 during this encounter Continue to monitor closely Continue Lisinopril (4) Hemiplegic migraine Current Visit: Yes Status: Chronic Assessment and Plan: 8 year hx of hemiplegic migraine Pt describes typical aura as stabbing occipital pain with starbursts in his vision, then feels very weak in his left extremities. States his most recent migraine was approximately [address] Jauregui in outpatient setting CT head was negative Symptoms from yesterday completely resolved. Moving all 4 extremities spontaneously. No slurred speech or facial droop. Cocktail of Compazine, Benadry, Decadron, and pain medication as needed for further episodes. DVT Prophylaxis: SQ heparin - Time Spent with Patient Total time spent is greater than 50% in coordination of care (as documented) at patient's floor/unit and/or counseling patient: Plan of Care Discussed with: patient Internal Medicine: Result - Labs CBC & Chem 7: 08/16/18 00:31 08/16/18 00:31 Labs: Short CBC 08/16/18 Range/Units 00:31 WBC 9.7 (4.3-11.1) K/mcL Hgb 13.6 (12.9-16.9) g/dL Hct 39.0 (37.5-50.1) % Plt Count 226 (140-400) K/mcL Neutrophils # 7.5 (1.6-8.9) K/mcL BMP 08/16/18 00:31 Sodium 135 L Potassium 3.9 Chloride 104 Carbon Dioxide 23 BUN 13 Creatinine 1.14 Glucose 141 H Calcium 9.2 - ABG Interpretation ABG results: PT/INR, D-dimer PT 11.2 Seconds (9.4-12.1) 08/15/18 09:17 Consult Discharge Plan - Plan Referrals: Louisa Hendrickson MD [Primary Care Provider] - <Apple Tran - Last Filed: 08/16/18 15:12> Hospitalist Progress Note - Encounter Date of Encounter: 08/16/18 - Exam Vitals: Temp Pulse Resp BP Pulse Ox 98.0 F 63 16 130/81 97 08/16/18 11:33 08/16/18 11:33 08/16/18 11:33 08/16/18 11:33 08/16/18 11:33 - Assessment and Plan (1) Chest pain Current Visit: Yes Status: Acute (2) CAD (coronary artery disease) Current Visit: No Status: Chronic (3) HTN (hypertension) Current Visit: No Status: Chronic (4) Hemiplegic migraine Current Visit: Yes Status: Chronic - Time Spent with Patient Total time spent is greater than 50% in coordination of care (as documented) at patient's floor/unit and/or counseling patient: Internal Medicine: Result - Labs CBC & Chem 7: 08/16/18 00:31 10 00:31 Labs: Short CBC 08/16/18 Range/Units 00:31 WBC 9.7 (4.3-11.1) K/mcL Hgb 13.6 (12.9-16.9) g/dL Hct 39.0 (37.5-50.1) % Plt Count 226 (140-400) K/mcL Neutrophils # 7.5 (1.6-8.9) K/mcL BMP 08/16/18 00:31 Sodium 135 L Potassium 3.9 Chloride 104 Carbon Dioxide 23 BUN 13 Creatinine 1.14 Glucose 141 H Calcium 9.2 - ABG Interpretation ABG results: PT/INR, D-dimer PT 11.2 Seconds (9.4-12.1) 08/15/18 09:17 - Attending Attestation I examined this patient and my medical decision-making was reviewed with the Resident Physician Dr. Lewis. I agree with the documented findings, disposition and treatment plan as described except to the extent set forth below. Mr. Bingham is a 63 year old male with history of multiple cardiac risk factors and extensive coronary artery disease status post 13 stents in the past. Last heart catheter was 2 years ago which was unremarkable according to the patient at [facility] now he presented to ER with atypical chest pain. He was admitted in the hospital and placed him on tele, checked serial tropnin which were negative. EKG did not show any ischemic changes. Pt was started on Nitro gtt and heparin gtt in suspect of unstable angina. However pt CP was improved by IV narcotics ( Fentanyl / Dilaudid only ). He did c.o head aches too. So d/c Nitro gtt, and his CP seems to be atypical so d/c heparin gtt. No events over night. He is still asking for pain medications frequently. Since he is high risk pt for ACS, will do a stress test on Friday. Gen: A, A, O x 3 Chest: Diminished BS b/l, No wheezing, no crackles Heart: S1S2 + RRR No murmurs <Fracisco Lewis - Last Filed: 08/16/18 11:32> (1) Chest pain Qualifiers: Chest pain type: unspecified Qualified Code(s): R07.9 - Chest pain, unspecified (2) CAD (coronary artery disease) Qualifiers: Coronary Disease-Associated Artery/Lesion type: [place] artery [place] vs. transplanted heart: [place] heart Associated angina: with unstable angina Qualified Code(s): I25.110 - Atherosclerotic heart disease of [place] coronary artery with unstable angina pectoris (3) HTN (hypertension) Qualifiers: Hypertension type: essential hypertension Qualified Code(s): I10 - Essential (primary) hypertension (4) Hemiplegic migraine Qualifiers: Status migrainosus presence: without status migrainosus Intractability: not intractable Qualified Code(s): G43.409 - Hemiplegic migraine, not intractable, without status migrainosus <Apple Tran - Last Filed: 08/16/18 15:12> (1) Chest pain Qualifiers: Chest pain type: unspecified Qualified Code(s): R07.9 - Chest pain, unspecified (2) CAD (coronary artery disease) Qualifiers: Coronary Disease-Associated Artery/Lesion type: [place] artery [place] vs. transplanted heart: [place] heart Associated angina: with unstable angina Qualified Code(s): I25.110 - Atherosclerotic heart disease of [place] coronary artery with unstable angina pectoris (3) HTN (hypertension) Qualifiers: Hypertension type: essential hypertension Qualified Code(s): I10 - Essential (primary) hypertension (4) Hemiplegic migraine Qualifiers: Status migrainosus presence: without status migrainosus Intractability: not intractable Qualified Code(s): G43.409 - Hemiplegic migraine, not intractable, without status migrainosus
--- NOTE | 2018-08-16 13:11 | Cardiology Progress Note ---
Date of Encounter: 08/16/18 Time of Encounter: 13:07 Assessment and Plan (1) Chest pain Current Visit: Yes Status: Acute Complain of chest pain symptoms with some atypical features. He does state it is like his previous anginal symptoms. Cardiac workup delayed yesterday secondary to stroke like symptoms. Per primary team and patient he has hemapalegic migraines. Neurologic symptoms have occurred previously with migraine. He follows with Dr. Coronado. Significant cardiac history. History of 13 cardiac stents. 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 No intervention at that time. He would like to follow with [facility] after discharge Okay to proceed with ischemic evaluation. Troponins have been negative 3. EKG without acute ST changes. Check TTE. Stress test is ordered for tomorrow for further workup. Qualifiers: Chest pain type: unspecified Qualified Code(s): R07.9 - Chest pain, unspecified (2) CAD (coronary artery disease) Current Visit: No Status: Chronic History of multiple PCI. Records have not been received from [facility] [place]. Continue aspirin, statin, and beta kourtney. Qualifiers: Coronary Disease-Associated Artery/Lesion type: [place] artery [place] vs. transplanted heart: [place] heart Associated angina: with unstable angina Qualified Code(s): I25.110 - Atherosclerotic heart disease of [place] coronary artery with unstable angina pectoris Discussion w patient/family: The assessment and plan as outlined above was discussed with the patient and/or family members who expressed understanding and agreement. All questions were answered. Thank you for involving us in the care of your patient. Please call with any questions. Subjective Principal diagnosis: Chest pain Interval history: Complain of intermittent chest pain for the past 2 days described as a stabbing sensation in his mid to left chest. Complain of intermittent jaw pain. The pain is the same as he felt prior to previous PCI. He also has hemeplegia migraines that is chronic. Nuerological symptoms resolved, Objective Vital Signs, Last 4 Hours Temp Pulse Resp BP Pulse Ox 08/16/18 11:33 98.0 F 63 16 130/81 97 General: Conversant, No Apparent Distress HEENT: Atraumatic, Normocephaly, Mucus Membranes Moist, Other (Notice frequent teeth grinding) Neck: No JVD, Normal carotid pulses Cardiac: Reg Rate and Rhythm, Normal S1 and S2, No Murmur Lungs: Normal Breath Sounds, No Wheeze, Rales, Rhonchi Neuro: Alert and responsive, No focal deficits noted Abdomen: Soft, Non-Tender Skin: No rashes noted on visualized skin Musculoskeletal: No Chest Wall Tenderness Extremities: No Clubbing, No Cyanosis, No Edema, Normal Pulses Results 08/16/18 00:31 08/16/18 00:31 Lab Results 08/16/18 08/16/18 00:31 00:31 WBC 9.7 Hgb 13.6 Hct 39.0 Plt Count 226 Sodium 135 L Potassium 3.9 Chloride 104 Carbon Dioxide 23 BUN 13 Creatinine 1.14 Glucose 141 H Calcium 9.2 - Imaging and Cardiology Echo: report reviewed Consult Discharge Plan - Plan Referrals: Louisa Hendrickson MD [Primary Care Provider] -
[2018-08-16] MEDS: Aspirin 81 MG TAB.CHEW PO SCH (14:31)
[2018-08-16] MEDS: *HR* Heparin 5,000 UNIT/ML VIAL SQ SCH (18:43)
[2018-08-17] MEDS: *HR* OxyCODONE Immed Rel 5 MG TABLET PO PRN ×5 (03:03→23:08)
[2018-08-17] MEDS: *HR* Heparin 5,000 UNIT/ML VIAL SQ SCH ×2 (05:45→18:19)
[2018-08-17] MEDS ORDERED: Regadenoson 0.4 MG/5 ML SYRINGE IVP ONE (08:07)
--- NOTE | 2018-08-17 09:07 | Discharge Summary ---
Orders not resulted at time of discharge: Pending orders 08/16/18 10:12 NM seema perf SPECT multi [NM] Routine 08/16/18 13:15 EV echocardiogram Routine Date of Encounter: 08/17/18 - Discharge Diagnosis (1) Chest pain Status: Acute Qualifiers: Chest pain type: unspecified Qualified Code(s): R07.9 - Chest pain, unspecified (2) Hemiplegic migraine Status: Chronic Qualifiers: Status migrainosus presence: without status migrainosus Intractability: not intractable Qualified Code(s): G43.409 - Hemiplegic migraine, not intractable, without status migrainosus (3) CAD (coronary artery disease) Status: Chronic Qualifiers: Coronary Disease-Associated Artery/Lesion type: [place] artery [place] vs. transplanted heart: [place]ena heart Associated angina: with unstable angina Qualified Code(s): I25.110 - Atherosclerotic heart disease of [place] coronary artery with unstable angina pectoris (4) HTN (hypertension) Status: Chronic Qualifiers: Hypertension type: essential hypertension Qualified Code(s): I10 - Essential (primary) hypertension Hospital course: Mr. Bingham is a 63 year old male - Time Spent with Patient Total time spent providing and/or coordinating discharge services: - Discharge Medications Home Medications: Carvedilol [Coreg] 25 mg PO BID 08/14/18 [History] Cholecalciferol (D-3) [Vitamin D] 1,000 unit PO DAILY 08/14/18 [History] Escitalopram [Lexapro] 10 mg PO DAILY 08/14/18 [History] Finasteride [Proscar] 5 mg PO DAILY 08/14/18 [History] Gabapentin [Neurontin] 600 mg PO TID 08/14/18 [History] Lisinopril [Zestril] 20 mg PO DAILY 08/14/18 [History] Pantoprazole Sodium [Protonix] 40 mg PO DAILY 08/14/18 [History] Ranolazine [Ranexa] 1,000 mg PO BID 08/14/18 [History] Tamsulosin [Flomax] 0.4 mg PO DAILY 08/14/18 [History] Vitamin E 1,000 unit PO DAILY 08/14/18 [History] lamoTRIgine [Lamictal] 100 mg PO BID 08/14/18 [History] Allergies/Adverse Reactions: 3 Allergy/AdvReac Type Severity Reaction Status Date / Time hydrochlorothiazide Allergy Hives Verified 08/14/18 16:04 sumatriptan [From Imitrex] Allergy Anaphylaxis Verified 08/14/18 16:04 Date of admission: 08/15/18 10:36 Primary care physician: Louisa Hendrickson MD - Constitutional Vitals: Temp Pulse Resp BP Pulse Ox 97.8 F 59 18 136/92 96 08/17/18 06:59 08/17/18 03:46 08/17/18 06:59 08/17/18 06:59 08/17/18 03:46 General appearance: Present: cooperative, A&O X 3, answers questions appropriately - Patient Status Condition: Fair - Discharge Instructions Follow Up With: Louisa Hendrickson MD [Primary Care Provider] -
[2018-08-17] MEDS ORDERED: Nitroglycerin 0.4 MG TAB.SUBL SL ONE (10:14)
[2018-08-17] MEDS: Nitroglycerin 0.4 MG TAB.SUBL SL PRN ×4 (10:21→12:26)
[2018-08-17] MEDS ORDERED: *HR* FentaNYL (PF) 100 MCG/2 ML VIAL IVP ONE (10:22)
[2018-08-17] MEDS: Gabapentin 300 MG CAPSULE PO SCH ×3 (10:39→19:55)
[2018-08-17] MEDS: Lisinopril 20 MG TABLET PO SCH (10:39)
[2018-08-17] MEDS: Cholecalciferol (D-3) 1,000 UNIT TABLET PO SCH (10:40)
[2018-08-17] MEDS: Ranolazine 500 MG TAB.ER.12H PO SCH ×2 (10:40→19:55)
[2018-08-17] MEDS: Finasteride 5 MG TABLET PO SCH (10:40)
[2018-08-17] MEDS: lamoTRIgine 100 MG TABLET PO SCH ×2 (10:40→19:55)
[2018-08-17] MEDS: Aspirin 81 MG TAB.CHEW PO SCH (10:41)
--- NOTE | 2018-08-17 11:43 | Event Note ---
Date of Encounter: 08/17/18 Time of Encounter: 11:42 - Cardiology Event Note Stress test resulted--Gated EF = 63%. Small sized, moderate intensity, reversible apex perfusion defect suggestive of a small ischemia. Given abnormal stress test, significant cardiac hx and continued intermittent CP overnight, recommend LHC. R/B/A discussed. Pt agrees to proceed. LHC today.
[2018-08-17] MEDS ORDERED: Heparin 1,000 UNITS/500 mL 500 ML ONE (15:40)
[2018-08-17] MEDS ORDERED: 0.9 % Sodium Chloride 1,000 ML ONE ×2 (15:40→16:17)
[2018-08-17] MEDS ORDERED: ISOVUE-370 200 ML INFUS..BTL IV ONE (15:40)
[2018-08-17] MEDS ORDERED: *HR* Heparin 10,000 UNIT/10 ML VIAL ONE (15:40)
[2018-08-17] MEDS ORDERED: Nitroglycerin 1,000 MCG/10 ML VIAL IV ONE (15:41)
--- NOTE | 2018-08-17 15:58 | Internal Med Progress Note ---
<Fracisco Lewis - Last Filed: 08/17/18 16:58> Hospitalist Progress Note - Encounter Date of Encounter: 08/17/18 Time of Encounter: 15:58 - Subjective Interval History: Mr. Bingham is a 63M with PMH of CAD with previous OR, 13 stents and a pacemaker, HTN, and hemiplegic migraines. He presented to the ED on 08/14 complaining of chest pain refractory to home doses of nitroglycerin. He was reportedly sitting on the couch watching tv when he felt a squeezing sensation in his chest. He did admit to some associated nausea and diaphoresis at that time. Patient's EKG in the ED showed T-wave inversions throughout the anterior leads without significant elevations or depressions. A posterior EKG was performed which did not show any elevations within the 70 8V9. He was given a dose of Brilinta per cardio recs and was placed on a nitro drip. Yesterday morning the pt reported an episode of stabbing pain in his occiput with starburts, followed by left arm and leg weakness, left facial droop and slurred speech. He states these symptoms are related to his hemiplegic migraines, which he has had for the past 8 years [address] follows with Dr Jauregui in the outpatient setting. These hemiplegic migraines are relieved by a cocktail of Compazine, Benadryl, steroids, and pain medication. The weakness, facial droop, slurred speech, and positive Babinski sign on the left had all completely resolved yesterday within 1-2 hours of aforementioned cockatil administration. Pt seen and examined at bedside. No acute events overnight. He is scheduled for a stress test States his chest pain is a 7/10 and continues to describe it as "squeezing". Denies any fever, chills, shortness of breath, numbness, tingling, nausea, vomiting, or weakness. States he has not had a headache since Friday. - Exam Vitals: Temp Pulse Resp BP Pulse Ox 99.1 F 61 21 132/84 97 08/17/18 10:49 08/17/18 10:49 08/17/18 10:49 08/17/18 10:52 08/17/18 10:49 Exam: Constitutional: well developed, well nourished, pleasant, no acute distress Head: atraumatic, normocephalic Eyes: PERRL, EOMI, sclera anicteric Neck: supple, trachea midline, no lymphadenopathy Lungs: CTA bilaterally. non-labored breathing. no wheezes, rales, or rhonchi Heart: RRR +S1 +S2. no murmurs, clicks, or rubs appreciated. GI: abdomen soft, non-tender, non-distended. Extremities: moving all 4 spontaneously. No cyanosis or edema. Radial pulses palpable and symmetrical Neuro: A&Ox3. No facial droop. No speech difficulty or abnormality. Strength intact in all 4 extremities. No focal deficits. Skin: warm, dry, intact - Assessment and Plan (1) Chest pain Current Visit: Yes Status: Acute Assessment and Plan: Significant history of CAD s/p 13 stents and pacemaker Serial troponins negative EKG from ED revealed sinus rhythm with right bundle branch block, no acute ST-T change CT of the chest revealed no PE, no aortic dissection or aneurysm, no other acute abnormalities in both lungs. Suspicious for unstable angina, patient was started on nitro drip, he received 1 dose of Brilinta at the ED. Patient chest pain improved for short periods of time with Fentanyl Cardiology is on board Oxycodone for continued pain Exercise stress test scheduled today (2) CAD (coronary artery disease) Current Visit: No Status: Chronic Assessment and Plan: Continue ASA and Coreg Continue home Ranexa (3) HTN (hypertension) Current Visit: No Status: Chronic Assessment and Plan: 130/81 during this encounter Continue to monitor closely Continue Lisinopril (4) Hemiplegic migraine Current Visit: Yes Status: Chronic Assessment and Plan: 8 year hx of hemiplegic migraine Pt describes typical aura as stabbing occipital pain with starbursts in his vision, then feels very weak in his left extremities. States his most recent migraine was approximately [address] Jauregui in outpatient setting CT head was negative Symptoms from yesterday completely resolved. Moving all 4 extremities spontaneously. No slurred speech or facial droop. Cocktail of Compazine, Benadry, Decadron, and pain medication as needed for further episodes. DVT Prophylaxis: SQ heparin - Time Spent with Patient Total time spent is greater than 50% in coordination of care (as documented) at patient's floor/unit and/or counseling patient: Internal Medicine: Result - Labs CBC & Chem 7: 08/16/18 00:31 08/16/18 00:31 Labs: Cardiac Enzymes 08/17/18 Range/Units 10:36 Troponin I < 0.03 (< 0.04) ng/mL - ABG Interpretation ABG results: PT/INR, D-dimer PT 11.2 Seconds (9.4-12.1) 08/15/18 09:17 - Impressions Impressions Echocardiogram 08/17/18 13:15 Impressions: LVEF 60-65%. Normal LV chamber size and function. Mild concentric left ventricular hypertrophy. Mild left ventricular diastolic dysfunction. Atypical septal motion consistent with bundle branch block. Normal right ventricular structure and function. No evidence of pulmonary hypertension. Consult Discharge Plan - Plan Referrals: Louisa Hendrickson MD [Primary Care Provider] - <Apple Tran - Last Filed: 08/17/18 17:29> Hospitalist Progress Note - Encounter Date of Encounter: 08/17/18 - Exam Vitals: Temp Pulse Resp BP Pulse Ox 99.1 F 61 21 132/84 97 08/17/18 10:49 08/17/18 10:49 08/17/18 10:49 08/17/18 10:52 08/17/18 10:49 - Assessment and Plan (1) Chest pain Current Visit: Yes Status: Acute (2) CAD (coronary artery disease) Current Visit: No Status: Chronic (3) HTN (hypertension) Current Visit: No Status: Chronic (4) Hemiplegic migraine Current Visit: Yes Status: Chronic - Time Spent with Patient Total time spent is greater than 50% in coordination of care (as documented) at patient's floor/unit and/or counseling patient: Internal Medicine: Result - Labs CBC & Chem 7: 08/16/18 00:31 10 00:31 Labs: Cardiac Enzymes 08/17/18 Range/Units 10:36 Troponin I < 0.03 (< 0.04) ng/mL - ABG Interpretation ABG results: PT/INR, D-dimer PT 11.2 Seconds (9.4-12.1) 08/15/18 09:17 - Impressions Impressions Echocardiogram 08/17/18 13:15 Impressions: LVEF 60-65%. Normal LV chamber size and function. Mild concentric left ventricular hypertrophy. Mild left ventricular diastolic dysfunction. Atypical septal motion consistent with bundle branch block. Normal right ventricular structure and function. No evidence of pulmonary hypertension. - Attending Attestation I examined this patient and my medical decision-making was reviewed with the Resident Physician Dr. Lewis. I agree with the documented findings, disposition and treatment plan as described except to the extent set forth below. Mr. Bingham is a 63 year old male with history of multiple cardiac risk factors and extensive coronary artery disease status post 13 stents in the past. Last heart catheter was 2 years ago which was unremarkable according to the patient at [facility] now he presented to ER with atypical chest pain. He was admitted in the hospital and placed him on tele, checked serial tropnin which were negative. EKG did not show any ischemic changes. Pt was started on Nitro gtt and heparin gtt in suspect of unstable angina. However pt CP was improved by IV narcotics ( Fentanyl / Dilaudid only ). He did c.o head aches too. So d/c Nitro gtt, and his CP seems to be atypical so d/c heparin gtt. No events over night. He is still asking for pain medications frequently. Pt is still c/o on and off severe CP. Card recommend C. Pt scheduled for [facility] today. Will f/u on results. Gen: A, A, O x 3 Chest: Diminished BS b/l, No wheezing, no crackles Heart: S1S2 + RRR No murmurs <Fracisco Lewis - Last Filed: 08/17/18 16:58> (1) Chest pain Qualifiers: Chest pain type: unspecified Qualified Code(s): R07.9 - Chest pain, unspecified (2) CAD (coronary artery disease) Qualifiers: Coronary Disease-Associated Artery/Lesion type: [place] artery [place] vs. transplanted heart: [place] heart Associated angina: with unstable angina Qualified Code(s): I25.110 - Atherosclerotic heart disease of [place] coronary artery with unstable angina pectoris (3) HTN (hypertension) Qualifiers: Hypertension type: essential hypertension Qualified Code(s): I10 - Essential (primary) hypertension (4) Hemiplegic migraine Qualifiers: Status migrainosus presence: without status migrainosus Intractability: not intractable Qualified Code(s): G43.409 - Hemiplegic migraine, not intractable, without status migrainosus <Apple Tran - Last Filed: 08/17/18 17:29> (1) Chest pain Qualifiers: Chest pain type: unspecified Qualified Code(s): R07.9 - Chest pain, unspecified (2) CAD (coronary artery disease) Qualifiers: Coronary Disease-Associated Artery/Lesion type: [place] artery [place] vs. transplanted heart: [place] heart Associated angina: with unstable angina Qualified Code(s): I25.110 - Atherosclerotic heart disease of [place] coronary artery with unstable angina pectoris (3) HTN (hypertension) Qualifiers: Hypertension type: essential hypertension Qualified Code(s): I10 - Essential (primary) hypertension (4) Hemiplegic migraine Qualifiers: Status migrainosus presence: without status migrainosus Intractability: not intractable Qualified Code(s): G43.409 - Hemiplegic migraine, not intractable, without status migrainosus
[2018-08-17] MEDS ORDERED: *HR* FentaNYL (PF) 100 MCG/2 ML VIAL ONE (16:14)
[2018-08-17] MEDS ORDERED: *HR* Midazolam HCl 2 MG/2 ML VIAL ONE (16:14)
--- NOTE | 2018-08-17 16:15 | Pre-Sedation Evaluation ---
Pre-sedation evaluation - Pre-sedation checklist Date of procedure: 08/17/18 Procedure: LHC Recent Vitals: Last Vital Signs Temp 99.1 F 08/17/18 10:49 Pulse 61 08/17/18 10:49 Resp 21 08/17/18 10:49 BP 132/84 08/17/18 10:52 Pulse Ox 97 08/17/18 10:49 ASA Classification *see protocol: CLASS II-Mild systemic disease Cardiac Registry (Cardio Only) - Functional Capacity Functional Capacity: >=4 METS with symptoms - Clincal Frailty Scale Clinical Frailty Scale: Managing Well
--- NOTE | 2018-08-17 16:43 | Electrocardiograph Report ---
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
[2018-08-17] MEDS ORDERED: Nitroglycerin Spray 4.9 GM BOTTLE ONE (16:47)
[2018-08-17] MEDS ORDERED: *HR* Morphine 2 MG/ML SYRINGE ONE (17:00)
--- NOTE | 2018-08-17 17:22 | Invasive Diagnostic Lab Proc ---
Name: Av Bingham Date of Study: 08/17/2018 Date: 1955 Ht: 65.0in Medical Record#: [id number] Age: 63 Wt: 172.40lb Gender: Male BSA: 1.86 Order #: [id number] BMI: 28.72 Physicians Procedure Physician: Alice Aquino MD Referring MD: Referring MD: Staff Name Position Time In Nichole Li RT Monitor 04:13 PM Shabana Bridges RN Events Specialist 04:13 PM Sara Patino RT (R) Scrub 04:14 PM Indications Indication Abnormal Test - Stress Procedures Performed Procedure L HRT ARTERY/VENTRICLE ANGIO Pre-Procedure Checklist Informed consent is complete signed and on chart. H&P is on chart. ID band is on and ID verified with patient. Patient NPO for procedure The procedure was described for the patient and questions were answered. Blood Pressure: 132/84 ECG is on chart. Rhythm: NSR Plan of Care Patient will tolerate the procedure without complications. Adequate level of comfort will be maintained. Hemodynamics will remain stable Patient will recover from procedure without complications. Respiratory function will be maintained. Cardiac rhythm will remain stable. Patient temperature will be maintained. Patient and/or family have verbalized understanding of the procedure. Patient Education Chief Complaint/Reason for Test: Cardiac Cath Developmental Category: Adult (18-64 years) Developmentally Appropriate for Age: Yes Learning Barriers: None Education Needs: Procedure Education Method: Verbal Information Taught: Cardiac Cath Educational Evaluation: Able to repeat information Intravenous Access Time IV Size Location DC'd Fluid/Drip Rate Units RN 18g 1 /" Patent On Arrival Lt Antecubital Allergies sumatriptan hydrochlorothiazide Vital Signs Time BP (mmHg) HR (bpm) O2 Sat. RR (bpm) LOC 132 / 84 61 97 % 21 5 = Fully awake and oriented or at pre-proc level 04:20 PM / % 5 = Fully awake and oriented or at pre-proc level 04:20 PM / % 4 = Oriented but drowsy 04:35 PM / % 4 = Oriented but drowsy 04:50 PM / % 4 = Oriented but drowsy 04:18 PM 186 / 105 59 96 % 13 04:23 PM 164 / 104 60 98 % 14 04:27 PM 152 / 96 60 91 % 13 04:32 PM 163 / 101 60 94 % 23 04:37 PM 146 / 95 60 93 % 12 04:42 PM 161 / 102 60 97 % 13 04:47 PM 171 / 109 59 97 % 8 04:52 PM 144 / 94 63 95 % 16 04:57 PM 151 / 101 65 95 % 23 05:02 PM 156 / 98 62 94 % 7 05:07 PM 135 / 95 59 95 % 11 Procedural Medications Time Medication Dose Units Method Given By 04:14 PM Oxygen 2 L/min nasal cannula Shabana Bridges RN 04:24 PM Versed 1 mg Intravenous Shabana Bridges RN 04:24 PM Fentanyl 50 mcg Intravenous Shabana Bridges RN 04:31 PM Lidocaine 2% 10 ml Subcutaneous Alice Aquino MD 04:48 PM Nitroglycerin 400 mcg Sublingual Shabana Bridges RN 05:03 PM Morphine 1 mg Intravenous Shabana Bridges RN 05:03 PM Nitroglycerin 400 mcg Sublingual Shabana Bridges RN 05:12 PM Morphine 1 mg Intravenous Shabana Bridges RN ASA Classification: CLASS II- Mild systemic disease (i.e. well-controlled diabetes, hypertension, asthma, cigarette smoking) Carlos Enrique Score Preprocedure Postprocedure Activity 2- Moves 4 extremities sustained head lift Activity 2- Moves 4 extremities sustained head lift Circulation 2- SBP +/= 20 points of pre-anesthetic level Circulation 2- SBP +/= 20 points of pre-anesthetic level Consciousness 2- Awake and alert oriented x 3 Consciousness 2- Awake and alert oriented x 3 O2 Saturation 2- Able to maintain O2 satruation of 92% on room air O2 Saturation 2- Able to maintain O2 satruation of 92% on room air Respiratory 2- Able to deep breathe and cough well Respiratory 2- Able to deep breathe and cough well Total Score 10 Total Score 10 Contrast Agent: Isovue Diagnostic Contrast: 55 ml Total Contrast: 55 ml Fluoro Dose: 45 mGy Procedure Log Time Note Enter By 04:13 PM Pt arrived to lab scientist 1 at 16:13 [email or web address] 04:13 PM Nichole Li RT Position: Monitor Time in: 16:13 [email or web address] 04:14 PM Shabana Bridges RN Position: Events Specialist Time in: 16:13 [email or web address] 04:14 PM Sara Patino RT (R) Position: Scrub Time in: 16:14 [email or web address] 04:14 PM Patient charges- Angio tray pack, Navilyst 3mm J, Pulse Oximetry and ACIST tubing and transducer : PM Case Delayed No PM Hair removed from procedure site in procedure lab using clippers. Bilateral groin prepped with Chloraprep by Sara Patino (R), then patient was draped. Skin intact. : PM Physician arrived 16:14 PM ASA Class CLASS II- Mild systemic disease (i.e. well-controlled diabetes, hypertension, asthma, cigarette smoking) kk: Meet and greet completed : PM Sign in performed according to hospital policy. Informed consent was obtained. : Procedure start 16:14 :16 PM CathStat 04:16 PM Recorded ECG: HR=63 Condition=Condition 1 04:17 PM Vitals capture started with the following parameters, Patient=Adult, Interval=5 min, Initial Ybafksql=270 mmHg, Deflation Rate=3 mmHg, Cuff placed on Right Arm 04:18 PM HR=59 bpm, MZXF=734/105 mmhg, SpO2=96 %, Resp=13 B/min 04:19 PM Time: 16:14 Oxygen on at 2 L/min per nasal cannula by Shabana Bridges RN :20 PM Time: 16:19 Patient comfortable and pain free: Yes 20 PM Time: 16:20LOC: 5 = Fully awake and oriented or at pre-proc level :20 PM Clinical Presentation: Unstable angina :23 PM HR=60 bpm, RQPD=643/104 mmhg, SpO2=98 %, Resp=14 B/min 04:24 PM Time: 16:24 Versed 1 mg Intravenous Given by Shabana Bridges RN : PM Time: 16:24 Fentanyl 50 mcg Intravenous Given by Shabana Bridges RN : PM HR=60 bpm, PYVS=860/96 mmhg, SpO2=91 %, Resp=13 B/min 04:31 PM Time out was performed according to hospital policy. Conscious sedation and anesthesia was achieved (see medication log with in this report above) PM Time: 16:31 10 ml Lidocaine 2% to right groin Subcutaneous Given by Alice Aquino MD [email or web address] 04:32 PM HR=60 bpm, UPPY=745/101 mmhg, SpO2=94 %, Resp=23 B/min 04:33 PM Micro-Introducer Kit utilized for sheath placement [email or web address] 04:33 PM Bolus angiogram of right Femoral complete: hand injected mls [email or web address] 04:34 PM Access obtained by percutaneous puncture. 6Fr 10cm Terumo [place] sheath placed in right Femoral artery. [id number] [email or web address] 04:34 PM 5Fr FR 4 catheter inserted over the wire DN [email or web address] 04:34 PM wire removed [email or web address] 04:35 PM Time: 16:20 Patient comfortable and pain free: Yes [email or web address] 04:35 PM RCA angiography performed in multiple views. [email or web address] 04:35 PM Time: 16:20LOC: 4 = Oriented but drowsy [email or web address] 04:36 PM Catheter removed [email or web address] 04:37 PM 5Fr FL 4 catheter inserted over the wire [facility] [email or web address] 04:37 PM wire removed kkallner 04:37 PM LCA angiography performed in multiple views. [email or web address] 04:37 PM Recorded Pressure: Ao, HR=60, Condition=Condition 1 (Aorta) Ao 109/75/91 04:37 PM HR=60 bpm, CCDU=212/95 mmhg, SpO2=93.0 %, Resp=12 B/min 04:39 PM Catheter removed [email or web address] 04:40 PM 5Fr Pigtail catheter inserted over the wire DN [email or web address] 04:40 PM wire removed kkallner 04:40 PM Catheter crossed the aortic valve and was selectively placed in the left ventricle. Pressures recorded on pullback for left heart catheterization. [email or web address] 04:40 PM pressures recorded [email or web address] 04:40 PM Recorded Pressure: LV, HR=60, Condition=Condition 1 (Left Ventricle) LV 139/13/18 04:41 PM Recorded Pressure: LV, Ao, HR=60, Condition=Condition 1 (Left Ventricle) LV 133/2/4, (Aorta) Ao 133/62/100 04:42 PM wire and catheter removed [email or web address] 04:42 PM HR=60 bpm, NCLB=271/102 mmhg, SpO2=97.0 %, Resp=13 B/min 04:[address] surgeon paged ner 04:47 PM Coronary Dominance: right [email or web address] 04:47 PM HR=59 bpm, MWXR=148/109 mmhg, SpO2=97.0 %, Resp=8 B/min 04:48 PM Procedure completed at 16:48 08/17/2018 [email or web address] 04:48 PM Time: 16:48 Nitroglycerin 400 mcg Sublingual Given by Shabana Bridges RN [email or web address] 04:48 PM Did you address ADRIEN flow and Dominance? Yes [email or web address] 04:49 PM Sign out completed: Radiation Dose 378.30 mGy, 44.69 Gy/cm2 Fluoro Time: 1.9 Isovue 370 - 200ml contrast 55 ml given by Alice Aquino MD. Complications: None. 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 Cardiac Rehab Consult needed: YesConfirmed administered medications: Yes [email or web address] 04:50 PM Time: 16:35 Patient comfortable and pain free: Yes [email or web address] 04:50 PM Isovue 370 - 200ml,1 Bottle(s) used. [email or web address] 04:50 PM Time: 16:35LOC: 4 = Oriented but drowsy [email or web address] 04:50 PM Estimated Blood Loss: minimal [email or web address] 04:50 PM Post ECG NSR [email or web address] 04:50 PM Post Blood Pressure 171/109 [email or web address] 04:50 PM 16:50 Post Pulses Bilateral DP & PT 2+ [email or web address] 04:51 PM Information taught Cardiac Cath [email or web address] 04:51 PM Education needs Procedure, Plan of Care, and Responsibilities of Patient in Care [email or web address] 04:51 PM Learning barriers :None kkallner 04:51 PM Education Methods Verbal [email or web address] 04:51 PM Education evaluation Able to repeat information [email or web address] 04:51 PM Plavix, Effient or Brilinta given No [email or web address] 04:51 PM Delay to floor No [email or web address] 04:51 PM no family at this time [email or web address] 04:51 PM Complications: None [email or web address] 04:52 PM HR=63 bpm, LUQI=732/94 mmhg, SpO2=95.0 %, Resp=16 B/min 04:54 PM Lesion found in Proximal RCA. Pre Stenosis: 60 Pre ADRIEN Flow: [email or web address] 04:54 PM Lesion found in Mid RCA. Pre Stenosis: 65 Pre ADRIEN Flow: [email or web address] 04:54 PM Lesion found in Proximal LAD. Pre Stenosis: 70 Pre ADRIEN Flow: [email or web address] 04:54 PM Lesion found in Mid LAD. Pre Stenosis: 50 Pre ADRIEN Flow: [email or web address] 04:54 PM Lesion found in Proximal Circumflex. Pre Stenosis: 50 Pre ADRIEN Flow: [email or web address] 04:55 PM Lesion found in 1st Marginal. Pre Stenosis: 60 Pre ADRIEN Flow: [email or web address] 04:55 PM Lesion found in Right PDA. Pre Stenosis: 70 Pre ADRIEN Flow: [email or web address] 04:57 PM HR=65 bpm, DBRX=954/101 mmhg, SpO2=95.0 %, Resp=23 B/min 04:59 PM Left Main Coronary Artery with 0% stenosis [email or web address] 04:59 PM Recorded ECG: HR=64 Condition=Condition 1 04:59 PM Proximal Left Anterior Descending Coronary Artery with 70% stenosis. If graft is supplying this territory, 0 % stenosis. [email or web address] 04:59 PM Mid/Distal Left Anterior Descending Coronary Artery and diagonal branches with 50% stenosis. If graft is supplying this area, 0 % stenosis [email or web address] 04:59 PM Circumflex, Obtuse Marginal, Left Posterior Descending, and Left Posterolateral Coronary Arteries with 60 % stenosis. If graft is supplying this area, 0 % stenosis kkallner 04:59 PM Right Coronary, Right Posterior Descending Arteries with Right Posterolateral and Acute Marginal branches with 70 % stenosis. If graft is supplying this area, 0 % stenosis kkallner 04:59 PM Ramus with 0% stenosis. If graft is supplying this area, 0 % stenosis 05:02 PM HR=62 bpm, KKMS=952/98 mmhg, SpO2=94 %, Resp=7 B/min 05:03 PM Time: 17:03 Morphine 1 mg Intravenous Given by Shabana Bridges RN 05:04 PM Time: 17:03 Nitroglycerin 400 mcg Sublingual Given by Shabana Bridges RN 05:05 PM Pt stated he was having 10/[address] Aquino at bedside. EKG unchanged. 05:05 PM Time: 16:50LOC: 4 = Oriented but drowsy 05:07 PM HR=59 bpm, MNGE=405/95 mmhg, SpO2=95.0 %, Resp=11 B/min 05:08 PM Arterial sheath pulled using manual compression and V+ Pad for 15 minutes by Sara Patino RT (R) chip 05:08 PM Site status No bleeding/hematoma - Rt Groin as reported by Sara Patino RT (R) at 17:08 chip 05:08 PM Opsite applied [email or web address] 05:09 PM Report given to PRIYANK RN Pt taken to E Room #34. 17:09 [email or web address] 05:13 PM Time: 17:12 Morphine 1 mg Intravenous Given by Shabana Bridges RN Complications Complication None None Hemodynamics Pressures Site Systolic/A Wave Diastolic/V Wave Mean AO 109 75 91 LV 139 13 18 LV 133 2 4 AO 133 62 100 Post Procedure Information Blood Pressure: 171/109 mmHg Rhythm: NSR Post procedural instructions were given Site Checks Time Location Status Staff Sheath In? Note 05:08 PM Rt Groin No bleeding/hematoma Sara Patino RT (R) Pulses Time Site Pre-Procedure Post-Procedure Note 08/17/2018 4:13:00 PM Bilateral radial 2+ 08/17/2018 4:13:00 PM Bilateral DP 2+ 08/17/2018 4:13:00 PM Bilateral PT 2+ 4:50:00 PM Bilateral DP & PT 2+ Updated by Nichole Li RT (R) on 08/17/2018 5:15:01 PM electronically signed on 08/17/2018 5:15:27 PM with status of Final
[2018-08-17] MEDS ORDERED: *HR* OxyCODONE Immed Rel 5 MG TABLET PO ONE (20:26)
[2018-08-18 04:48] LABS: Basophils % 0.6 %; Eosinophils # 0.2 K/mcL (0.0-0.6); Eosinophils % 2.5 %; Hematocrit 42.5 % (37.5-50.1); Hemoglobin 14.5 g/dL (12.9-16.9); Immature Granulocytes % 0.3 % (0-4); Lymphocytes # 2.4 K/mcL (0.6-4.6); Lymphocytes % 35.2 %; Mean Corpuscular HGB Conc 34.1 g/dL (31.6-35.5); Mean Corpuscular Hemoglobin 31.2 pg (28.0-33.3); Mean Corpuscular Volume 91.4 fL (83.0-100.0); Mean Platelet Volume 9.3 fL (9.4-12.4); Monocytes # 0.8 K/mcL (0.0-1.3); Monocytes % 11.2 %; Neutrophils # 3.4 K/mcL (1.6-8.9); Platelet Count 215 K/mcL (140-400); Red Blood Count 4.65 M/mcL (4.19-5.50); Red Cell Distribution Width 13.2 % (11.5-14.5); Segmented Neutrophils % 50.2 %
[2018-08-18] MEDS: *HR* OxyCODONE Immed Rel 5 MG TABLET PO PRN ×2 (04:53→09:07)
[2018-08-18] MEDS: *HR* Heparin 5,000 UNIT/ML VIAL SQ SCH ×2 (04:54→17:28)
[2018-08-18 05:15] LABS: BUN/Creatinine Ratio 18 (6-26); Blood Urea Nitrogen 22 mg/dL (8-23); Calcium 9.7 mg/dL (8.6-10.3); Carbon Dioxide 24 mEq/L (23-29); Chloride 104 mEq/L (98-107); Glucose 128 mg/dL (70-105); Osmolality,Calculated 287 (280-300); Potassium 3.7 mEq/L (3.5-5.1); Sodium 136 mEq/L (136-145); eGFR For Non-African Americans > 60 (> 60)
[2018-08-18] MEDS: Ranolazine 500 MG TAB.ER.12H PO SCH ×2 (07:48→20:06)
[2018-08-18] MEDS: Lisinopril 20 MG TABLET PO SCH (07:48)
[2018-08-18] MEDS: Aspirin 81 MG TAB.CHEW PO SCH (07:48)
[2018-08-18] MEDS: Cholecalciferol (D-3) 1,000 UNIT TABLET PO SCH (07:49)
[2018-08-18] MEDS: Gabapentin 300 MG CAPSULE PO SCH ×3 (07:49→20:06)
[2018-08-18] MEDS: Finasteride 5 MG TABLET PO SCH (07:49)
[2018-08-18] MEDS: lamoTRIgine 100 MG TABLET PO SCH ×2 (07:49→20:06)
--- NOTE | 2018-08-18 07:56 | Cardiothoracic Consult Note ---
Date of Encounter: 08/18/18 Time of Encounter: 07:25 Assessment and Plan (1) CAD (coronary artery disease) Current Visit: No Status: Chronic The patient is a 63-year-old hypertensive man with hypercholesterolemia and known CAD who was undergone 13 previous coronary stent placements. He developed substernal chest pain radiating to his jaw on down his left arm with associated diaphoresis on 08/14/2018. Admitted to [facility] for further cardiac workup. The echocardiogram revealed an LVEF 60-65% with normal left ventricular function. Subsequent cardiac catheterization revealed severe 3 vessel CAD, including in-stent restenosis. The LAD is a small Estle with diffuse distal disease and may not be graftable. The OM1 branch has several stents in the midportion where a bypass graft would be placed. The RCA appears to be the only bypassable target. The patient may be a candidate for a hybrid procedure with some bypass grafts and some stents to correct his current coronary lesions. 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 The assessment and plan as outlined above was discussed with the patient and/or family members who expressed understanding and agreement. All questions were answered. Qualifiers: Coronary Disease-Associated Artery/Lesion type: yu[place]iatam artery [place] vs. transplanted heart: y[place]am heart Associated angina: with unstable angina Qualified Code(s): I25.110 - Atherosclerotic heart disease of yuhaaviatam coronary artery with unstable angina pectoris - History of Present Illness Consult date: 08/17/18 Requesting physician: Alice Aquino Consult reason: CABG evaluation Chief complaint: Substernal chest pain History of present illness: Mr. Bingham is a 63 year old hypertensive man with hypercholesterolemia and known CAD. The patient's cardiac history dates back to 2005 at which time he experienced anginal symptoms and underwent percutaneous catheter intervention and stent placement. At that time 2 stents were placed and he subsequently underwent several more procedures and has a total of 13 coronary stents. The patient did well until 08/14/2018 when he experienced sudden onset of substernal chest pain radiating into his jaw and down his left arm. He had associated diaphoresis, but denied any shortness of breath, nausea, or vomiting. The patient quickly notified EMS and was transported to [facility] for further care. The patient ruled out for an acute coronary syndrome, but was admitted for further cardiac workup given his previous cardiac history and presenting symptoms. The patient underwent a transthoracic echocardiogram which revealed an LVEF 60- 65% with normal left ventricular chamber size and function. A low-level stress test was nondiagnostic for ischemia due to baseline ST changes. The LVEF was estimated to be 63% and a small moderate intensity reversible defects noted in the apex. The patient underwent cardiac catheterization and was found to have severe 3 vessel CAD. In particular, the patient has a 70% proximal LAD lesion, a 50% mid LAD in-stent restenosis, a long 80% mid to distal LAD lesion, a 50% proximal LCx lesion, a 60% proximal OM1 lesion, a 60% proximal RCA in-stent restenosis, a 60-70% mid RCA in-stent restenosis, and a 70% mid PDA lesion. I have been asked to evaluate the patient for possible CABG. Past Med Surg Social Fam HX - Past Medical History Medical history: coronary artery disease, hyperlipidemia, hypertension, migraine (Left hemiplegic migraines), myocardial infarction Additional medical history: 13 cardiac stents. Pacemaker. Hemaplegic migraines Psychiatric history: depression - Past Surgical History Surgical History: orthopedic, other (Left rotator cuff repair), pacemaker/AICD ( Dual-chamber pacemaker) Additional surgical history: Left rotator cuff repair - Social History Smoking Status: Never smoker Smokeless Tobacco Status: No Alcohol use: none Drug use: marijuana Occupational status: disabled Current living situation: Home - Independent Activity Level: Independent ambulation Recent Out of Country Travel Within the Last 8 Weeks: No Exposure or Possible Exposure to Illness During Travel: No - Family History Father Family Member Ethnicity: Non- Living Status: Age at : 80 Cause of : MA Hx Family Neurologic Disorders: Yes (Alzheimers) Mother Family Member Ethnicity: Non- Living Status: Age at : 76 Hx Family Cardiac Disorders: Yes (MA, Quad bypass) Hx Family Neurologic Disorders: Yes (Alzheimers) Brother Living Status: Age at : 46 Cause of : Complications from AIDS Medications and Allergies Carvedilol [Coreg] 25 mg PO BID 08/14/18 [History] Cholecalciferol (D-3) [Vitamin D] 1,000 unit PO DAILY 08/14/18 [History] Escitalopram [Lexapro] 10 mg PO DAILY 08/14/18 [History] Finasteride [Proscar] 5 mg PO DAILY 08/14/18 [History] Gabapentin [Neurontin] 600 mg PO TID 08/14/18 [History] Lisinopril [Zestril] 20 mg PO DAILY 08/14/18 [History] Pantoprazole Sodium [Protonix] 40 mg PO DAILY 08/14/18 [History] Ranolazine [Ranexa] 1,000 mg PO BID 08/14/18 [History] Tamsulosin [Flomax] 0.4 mg PO DAILY 08/14/18 [History] Vitamin E 1,000 unit PO DAILY 08/14/18 [History] lamoTRIgine [Lamictal] 100 mg PO BID 08/14/18 [History] 3 Allergy/AdvReac Type Severity Reaction Status Date / Time hydrochlorothiazide Allergy Hives Verified 08/14/18 16:04 sumatriptan [From Imitrex] Allergy Anaphylaxis Verified 08/14/18 16:04 All Systems Review: The remainder of the systems were reviewed and are negative Physical Examination Vital Signs, Last 4 Hours Temp Pulse Resp BP Pulse Ox 08/18/18 05:12 59 126/85 08/18/18 05:00 98 F 65 16 114/76 96 General: Conversant, No Apparent Distress HEENT: Atraumatic, Normocephaly, Trachea midline Neck: No JVD, Normal carotid pulses Cardiac: Reg Rate and Rhythm, Normal S1 and S2, No Murmur Lungs: Normal Breath Sounds, No Wheeze, Rales, Rhonchi Neuro: Alert and responsive, No focal deficits noted, Motor nerves intact, Sensory nerves intact Vascular: Normal capillary refill Abdomen: Soft, Non-tender Skin: No rashes noted on visualized skin Musculoskeletal: No Chest Wall Tenderness Extremities: No Clubbing, No Cyanosis, No Edema, Normal Pulses Results 08/18/18 04:33 08/18/18 04:33 Lab Results, Last 24 hours 08/17/18 08/18/18 08/18/18 10:36 04:33 04:33 WBC 6.8 Hgb 14.5 Hct 42.5 Plt Count 215 Sodium 136 Potassium 3.7 Chloride 104 Carbon Dioxide 24 BUN 22 Creatinine 1.21 Glucose 128 H Calcium 9.7 Troponin I < 0.03 - Imaging Chest Xray: image reviewed (Normal cardiac size. Possible small right pleural effusion.) Consult Discharge Plan - Plan Referrals: Louisa Hendrickson MD [Primary Care Provider] -
--- NOTE | 2018-08-18 09:40 | Electrocardiograph Report ---
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
--- NOTE | 2018-08-18 09:40 | Electrocardiograph Report ---
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
[2018-08-18] MEDS ORDERED: MORPHINE SUL Oral CONC 10 MG/0.5 ML ORAL.SYG SL ONE (09:53)
--- NOTE | 2018-08-18 09:57 | Cardiology Progress Note ---
Date of Encounter: 08/18/18 Time of Encounter: 09:55 Assessment and Plan (1) CAD (coronary artery disease) Current Visit: No Status: Chronic History of multiple PCI. [facility] yesterday with severe [address] surgery consulted. Considering hybrid approach with CABG and PCI. The LAD is a small vessel with diffuse distal disease and may not be graftable. The OM1 branch has several stents in the midportion where a bypass graft would be placed. RCA appears to be the only bypassable target. The patient may be a candidate for a hybrid procedure with some bypass grafts and some stents to correct his current coronary lesions. Currently 10/10 CP with radiation to left jaw. Declines nitro gtt stating it makes him sick. Start Imdur 30mg daily with plans to uptitrate. Right femoral access site healing well. No bleeding, hematoma or ecchymosis noted. Continue ASA, Statin, BB. Continue to follow until final plan is determined in coordination with CT surgery. Qualifiers: Coronary Disease-Associated Artery/Lesion type: [place] artery [place] vs. transplanted heart: [place] heart Associated angina: with unstable angina Qualified Code(s): I25.110 - Atherosclerotic heart disease of [place] coronary artery with unstable angina pectoris (2) Chest pain Current Visit: Yes Status: Acute Significant cardiac history. History of 13 cardiac stents. Follows with [facility] treasurer at [facility] 2 years ago at [facility]. No intervention at that time. He would like to follow with [place] cardiology after discharge [facility] yesterday, as above. CT surgery consulted/following--considering hybrid approach with CABG and PCI. Qualifiers: Chest pain type: unspecified Qualified Code(s): R07.9 - Chest pain, unspecified Discussion w patient/family: The assessment and plan as outlined above was discussed with the patient and/or family members who expressed understanding and agreement. All questions were answered. Thank you for involving us in the care of your patient. Please call with any questions. I will discuss all the above with Dr. Rascon and make changes as necessary. Subjective Principal diagnosis: Chest pain Interval history: [facility] completed yesterday showed severe [address] surgery consulted. Considering hybrid approach with CABG and PCI. Pt continues to have chest pain with radiation to left jaw, currently 10/10. Declines nitro gtt. Objective Vital Signs, Last 4 Hours Temp Pulse Resp BP Pulse Ox 08/18/18 08:05 98.0 F 60 16 130/84 97 Vital Signs Temp Pulse Resp BP Pulse Ox 08/18/18 08:05 98.0 F 60 16 130/84 97 08/18/18 05:12 59 126/85 08/18/18 05:00 98 F 65 16 114/76 96 08/18/18 01:00 98.5 F 60 16 134/85 97 08/17/18 23:09 98.8 F 56 18 135/87 95 08/17/18 19:59 59 16 153/99 98 08/17/18 19:20 141/97 08/17/18 18:50 62 122/93 08/17/18 18:20 59 130/90 08/17/18 18:05 60 132/90 08/17/18 17:50 62 131/94 08/17/18 17:35 58 139/88 08/17/18 10:52 132/84 08/17/18 10:49 99.1 F 61 21 132/84 97 08/17/18 10:21 156/107 08/17/18 10:16 136/96 08/17/18 10:00 136/92 Intake and Output 08/17/18 08/18/18 08/18/18 23:59 07:59 15:59 Intake Total 300 / 300 120 / 120 Output Total 1000 / 1000 600 / 600 Balance -1000 / -1000 -300 / -300 120 / 120 Intake: Oral 300 / 300 120 / 120 Output: Urine 1000 / 1000 600 / 600 Other: Meal Breakfast Percent of Meal Consumed 100% Weight 75.1 kg Patient Weight 08/18/18 23:59 Weight 75.1 kg General: Conversant, No Apparent Distress HEENT: Atraumatic, Normocephaly, Mucus Membranes Moist Neck: No JVD, Normal carotid pulses Cardiac: Reg Rate and Rhythm, Normal S1 and S2, No Murmur Lungs: Normal Breath Sounds, No Wheeze, Rales, Rhonchi Neuro: Alert and responsive, No focal deficits noted Abdomen: Soft, Non-Tender Skin: Other (right femoral access site healing well. No bleeding, hematoma or ecchymosis noted.) Musculoskeletal: No Chest Wall Tenderness Extremities: No Clubbing, No Cyanosis, No Edema, Normal Pulses Results 08/18/18 04:33 08/18/18 04:33 Lab Results 08/17/18 08/18/18 08/18/18 10:36 04:33 04:33 WBC 6.8 Hgb 14.5 Hct 42.5 Plt Count 215 Sodium 136 Potassium 3.7 Chloride 104 Carbon Dioxide 24 BUN 22 Creatinine 1.21 Glucose 128 H Calcium 9.7 Troponin I < 0.03 Short CBC 08/18/18 Range/Units 04:33 WBC 6.8 (4.3-11.1) K/mcL Hgb 14.5 (12.9-16.9) g/dL Hct 42.5 (37.5-50.1) % Plt Count 215 (140-400) K/mcL Neutrophils # 3.4 (1.6-8.9) K/mcL BMP 08/18/18 Range/Units 04:33 Sodium 136 (136-145) mEq/L Potassium 3.7 (3.5-5.1) mEq/L Chloride 104 (98-107) mEq/L Carbon Dioxide 24 (23-29) mEq/L BUN 22 (8-23) mg/dL Creatinine 1.21 (0.70-1.30) mg/dL Glucose 128 H (70-105) mg/dL Calcium 9.7 (8.6-10.3) mg/dL Cardiac Enzymes 08/17/18 Range/Units 10:36 Troponin I < 0.03 (< 0.04) ng/mL Impressions Echocardiogram 08/17/18 13:15 Impressions: LVEF 60-65%. Normal LV chamber size and function. Mild concentric left ventricular hypertrophy. Mild left ventricular diastolic dysfunction. Atypical septal motion consistent with bundle branch block. Normal right ventricular structure and function. No evidence of pulmonary hypertension. Active Medications Acetaminophen (Tylenol) 650 mg PO Q6HR PRN PRN Reason: Mild Pain/Fever Stop: 02/13/19 18:47 Aspirin (Aspirin) 81 mg PO DAILY [facility] Stop: 02/15/19 13:16 Last Admin: 08/18/18 07:48 Dose: 81 mg Atorvastatin Calcium (Lipitor) 80 mg PO HS [facility] Stop: 02/15/19 21:01 Last Admin: 08/17/18 19:55 Dose: 80 mg Carvedilol (Coreg) 25 mg PO BIDWM [facility] PRN Reason: Protocol Stop: 02/13/19 21:01 Last Admin: 08/18/18 07:48 Dose: 25 mg Escitalopram Oxalate (Lexapro) 10 mg PO DAILY [facility] Stop: 02/14/19 09:01 Last Admin: 08/18/18 07:48 Dose: 10 mg Finasteride (Proscar) 5 mg PO DAILY [facility] PRN Reason: Protocol Stop: 02/14/19 09:01 Last Admin: 08/18/18 07:49 Dose: 5 mg Gabapentin (Neurontin) 600 mg PO TID [facility] Stop: 02/13/19 21:01 Last Admin: 08/18/18 07:49 Dose: 600 mg Heparin Sodium (Porcine) (Heparin) 5,000 unit SQ Q12HCO [facility] Stop: 02/15/19 18:01 Last Admin: 08/18/18 04:54 Dose: 5,000 unit Lamotrigine (Lamictal) 100 mg PO BID [facility] Stop: 02/13/19 21:01 Last Admin: 08/18/18 07:49 Dose: 100 mg Lisinopril (Zestril) 20 mg PO DAILY [facility] PRN Reason: Protocol Stop: 02/14/19 09:01 Last Admin: 08/18/18 07:48 Dose: 20 mg Naloxone HCl (Narcan) 0.4 mg IVP Q2MIN PRN PRN Reason: SEE COMMENTS Stop: 02/13/19 18:47 Nitroglycerin (Nitroglycerin) 0.4 mg SL Q5MIN PRN PRN Reason: Chest Pain Stop: 02/16/19 10:18 Last Admin: 08/17/18 12:26 Dose: 0.4 mg Omeprazole (Prilosec) 20 mg PO DAILY@0730 [facility] Stop: 02/14/19 07:31 Last Admin: 08/18/18 07:48 Dose: 20 mg Ranolazine (Ranexa) 1,000 mg PO BID [facility] Stop: 02/13/19 21:01 Last Admin: 08/18/18 07:48 Dose: 1,000 mg Tamsulosin HCl (Flomax) 0.4 mg PO DAILY [facility] PRN Reason: Protocol Stop: 02/14/19 09:01 Last Admin: 08/18/18 07:48 Dose: 0.4 mg Vitamin D (Vitamin D) 1,000 unit PO DAILY [facility] Stop: 02/14/19 09:01 Last Admin: 08/18/18 07:49 Dose: 1,000 unit Vitamin E (Vitamin E) 1,000 unit PO DAILY [facility] Stop: 02/14/19 09:01 Last Admin: 08/18/18 07:48 Dose: 1,000 unit - Imaging and Cardiology Echo: report reviewed Cardiac cath: report reviewed - EKG Interpretation EKG results cardiology: other (12 hr tele AVG HR 61, paced) Consult Discharge Plan - Plan Referrals: Louisa Hendrickson MD [Primary Care Provider] -
--- NOTE | 2018-08-18 10:10 | Internal Med Progress Note ---
<Fracisco Lewis - Last Filed: 08/18/18 17:08> Hospitalist Progress Note - Encounter Date of Encounter: 08/18/18 Time of Encounter: 10:10 - Subjective Interval History: Mr. Bingham is a 63M with PMH of CAD with previous OK, 13 stents and a pacemaker, HTN, and hemiplegic migraines. He presented to the ED on 08/14 complaining of chest pain refractory to home doses of nitroglycerin. He was reportedly sitting on the couch watching tv when he felt a squeezing sensation in his chest. He did admit to some associated nausea and diaphoresis at that time. Patient's EKG in the ED showed T-wave inversions throughout the anterior leads without significant elevations or depressions. A posterior EKG was performed which did not show any elevations within the 70 8V9. He was given a dose of Brilinta per cardio recs and was placed on a nitro drip. Yesterday morning the pt reported an episode of stabbing pain in his occiput with starburts, followed by left arm and leg weakness, left facial droop and slurred speech. He states these symptoms are related to his hemiplegic migraines, which he has had for the past [address] follows with Dr Jauregui in the outpatient setting. These hemiplegic migraines are relieved by a cocktail of Compazine, Benadryl, steroids, and pain medication. The weakness, facial droop, slurred speech, and positive Babinski sign on the left had all completely resolved yesterday within 1-2 hours of aforementioned cockatil administration. He was unable to complete the exercise stress test on 08/17 and subsequently underwent a LHC. The LHC revealed significant coronary disease. CT surg consulted by cardiology and awaiting their coordinated plan. Pt seen and examined at bedside. No acute events overnight. States his chest pain is a 7/10 and continues to describe it as "squeezing". Denies any fever, chills, shortness of breath, numbness, tingling, nausea, vomiting, or weakness. States he has not had a headache since Friday. - Exam Vitals: Temp Pulse Resp BP Pulse Ox 98.0 F 60 16 130/84 97 08/18/18 08:05 08/18/18 08:05 08/18/18 08:05 08/18/18 08:05 08/18/18 08:05 Exam: Constitutional: well developed, well nourished, pleasant, no acute distress Head: atraumatic, normocephalic Eyes: PERRL, EOMI, sclera anicteric Neck: supple, trachea midline, no lymphadenopathy Lungs: CTA bilaterally. non-labored breathing. no wheezes, rales, or rhonchi Heart: RRR +S1 +S2. no murmurs, clicks, or rubs appreciated. GI: abdomen soft, non-tender, non-distended. Extremities: moving all 4 spontaneously. No cyanosis or edema. Radial pulses palpable and symmetrical Neuro: A&Ox3. No facial droop. No speech difficulty or abnormality. Strength intact in all 4 extremities. No focal deficits. Skin: warm, dry, intact - Assessment and Plan (1) Chest pain Current Visit: Yes Status: Acute Assessment and Plan: Significant history of CAD s/p 13 stents and pacemaker Serial troponins negative EKG from ED revealed sinus rhythm with right bundle branch block, no acute ST-T change CT of the chest revealed no PE, no aortic dissection or aneurysm, no other acute abnormalities in both lungs. Suspicious for unstable angina, patient was started on nitro drip, he received 1 dose of Brilinta at the ED. Patient chest pain improved for short periods of time with Fentanyl LHC showed severe multivessel disease which may require a hybrid CABG type procedure Cardiology and CT surgery are on board Sublingual morphine for pain (2) CAD (coronary artery disease) Current Visit: No Status: Chronic Assessment and Plan: Continue ASA and Coreg Continue home Ranexa Discussed the importance of continuing statin with the pt. Pt had taken statin previously, but stated it upset his stomach some. However after discussing the importance of medication management post intervention, pt was amenable to continuing statin. (3) HTN (hypertension) Current Visit: No Status: Chronic Assessment and Plan: 130/84 during this encounter Continue to monitor closely Continue Lisinopril (4) Hemiplegic migraine Current Visit: Yes Status: Chronic Assessment and Plan: 8 year hx of hemiplegic migraine Pt describes typical aura as stabbing occipital pain with starbursts in his vision, then feels very weak in his left extremities. States his most recent migraine was approximately [address] Aktar in outpatient setting CT head was negative Symptoms from yesterday completely resolved. Moving all 4 extremities spontaneously. No slurred speech or facial droop. Cocktail of Compazine, Benadry, Decadron, and pain medication as needed for further episodes. DVT Prophylaxis: SQ Heparin - Time Spent with Patient Total time spent is greater than 50% in coordination of care (as documented) at patient's floor/unit and/or counseling patient: Internal Medicine: Result - Labs CBC & Chem 7: 08/18/18 04:33 08/18/18 04:33 Labs: Short CBC 08/18/18 Range/Units 04:33 WBC 6.8 (4.3-11.1) K/mcL Hgb 14.5 (12.9-16.9) g/dL Hct 42.5 (37.5-50.1) % Plt Count 215 (140-400) K/mcL Neutrophils # 3.4 (1.6-8.9) K/mcL BMP 08/18/18 04:33 Sodium 136 Potassium 3.7 Chloride 104 Carbon Dioxide 24 BUN 22 Creatinine 1.21 Glucose 128 H Calcium 9.7 Cardiac Enzymes 08/17/18 Range/Units 10:36 Troponin I < 0.03 (< 0.04) ng/mL - ABG Interpretation ABG results: PT/INR, D-dimer PT 11.2 Seconds (9.4-12.1) 08/15/18 09:17 - Impressions Impressions Echocardiogram 08/17/18 13:15 Impressions: LVEF 60-65%. Normal LV chamber size and function. Mild concentric left ventricular hypertrophy. Mild left ventricular diastolic dysfunction. Atypical septal motion consistent with bundle branch block. Normal right ventricular structure and function. No evidence of pulmonary hypertension. Consult Discharge Plan - Plan Referrals: Louisa Hendrickson MD [Primary Care Provider] - <Lizy Solorio - Last Filed: 08/18/18 17:36> Hospitalist Progress Note - Encounter Date of Encounter: 08/18/18 - Exam Vitals: Temp Pulse Resp BP Pulse Ox 98 F 59 15 103/67 97 08/18/18 16:34 08/18/18 16:34 08/18/18 16:34 08/18/18 16:34 08/18/18 16:34 - Assessment and Plan (1) Chest pain Current Visit: Yes Status: Acute (2) CAD (coronary artery disease) Current Visit: No Status: Chronic (3) HTN (hypertension) Current Visit: No Status: Chronic (4) Hemiplegic migraine Current Visit: Yes Status: Chronic - Time Spent with Patient Total time spent is greater than 50% in coordination of care (as documented) at patient's floor/unit and/or counseling patient: Internal Medicine: Result - Labs CBC & Chem 7: 08/18/18 04:33 08/18/18 04:33 Labs: Short CBC 08/18/18 Range/Units 04:33 WBC 6.8 (4.3-11.1) K/mcL Hgb 14.5 (12.9-16.9) g/dL Hct 42.5 (37.5-50.1) % Plt Count 215 (140-400) K/mcL Neutrophils # 3.4 (1.6-8.9) K/mcL BMP 08/18/18 04:33 Sodium 136 Potassium 3.7 Chloride 104 Carbon Dioxide 24 BUN 22 Creatinine 1.21 Glucose 128 H Calcium 9.7 - ABG Interpretation ABG results: PT/INR, D-dimer PT 11.2 Seconds (9.4-12.1) 08/15/18 09:17 - Attending Attestation 63M with PMH of CAD with previous OK, 13 stents and a pacemaker, HTN, and hemiplegic migraines. He presented to the ED on 08/14 complaining of chest pain refractory to home doses of nitroglycerin. He was reportedly sitting on the couch watching tv when he felt a squeezing sensation in his chest. He did admit to some associated nausea and diaphoresis at that time. Patient's EKG in the ED showed T-wave inversions throughout the anterior leads without significant elevations or depressions. S; Still has chest pain this am Exam General: Conversant, No Apparent Distress HEENT: Atraumatic, Normocephaly, Mucus Membranes Moist Neck: No JVD, Normal carotid pulses Cardiac: Reg Rate and Rhythm, Normal S1 and S2, No Murmur Lungs: Normal Breath Sounds, No Wheeze, Rales, Rhonchi Neuro: Alert and responsive, No focal deficits noted Abdomen: Soft, Non-Tender Skin: Other (right femoral access site healing well. No bleeding, hematoma or ecchymosis noted.) Musculoskeletal: No Chest Wall Tenderness Extremities: No Clubbing, No Cyanosis, No Edema, Normal Pulses Plan Acute coronary syndrome/ Unstable Angina. s/p LHC severe multivessel disease. Cardiology and cardiothoracic surgery planning for hybrid procedure with CABG and stent placement Follow up cardio and CT surgery recs <Fracisco Lewis A - Last Filed: 08/18/18 17:08> (1) Chest pain Qualifiers: Chest pain type: unspecified Qualified Code(s): R07.9 - Chest pain, unspecified (2) CAD (coronary artery disease) Qualifiers: Coronary Disease-Associated Artery/Lesion type: [place] artery [place] vs. transplanted heart: [place] heart Associated angina: with unstable angina Qualified Code(s): I25.110 - Atherosclerotic heart disease of [place] coronary artery with unstable angina pectoris (3) HTN (hypertension) Qualifiers: Hypertension type: essential hypertension Qualified Code(s): I10 - Essential (primary) hypertension (4) Hemiplegic migraine Qualifiers: Status migrainosus presence: without status migrainosus Intractability: not intractable Qualified Code(s): G43.409 - Hemiplegic migraine, not intractable, without status migrainosus <Lizy Solorio A - Last Filed: 08/18/18 17:36> (1) Chest pain Qualifiers: Chest pain type: unspecified Qualified Code(s): R07.9 - Chest pain, unspecified (2) CAD (coronary artery disease) Qualifiers: Coronary Disease-Associated Artery/Lesion type: [place] artery [place] vs. transplanted heart: [place] heart Associated angina: with unstable angina Qualified Code(s): I25.110 - Atherosclerotic heart disease of [place] coronary artery with unstable angina pectoris (3) HTN (hypertension) Qualifiers: Hypertension type: essential hypertension Qualified Code(s): I10 - Essential (primary) hypertension (4) Hemiplegic migraine Qualifiers: Status migrainosus presence: without status migrainosus Intractability: not intractable Qualified Code(s): G43.409 - Hemiplegic migraine, not intractable, without status migrainosus
[2018-08-18] MEDS: Isosorbide MONOnitrate (24 HR) 30 MG TAB.ER.24H PO SCH (12:46)
[2018-08-18] MEDS: MORPHINE SUL Oral CONC 10 MG/0.5 ML ORAL.SYG SL PRN ×3 (15:23→23:52)
[2018-08-18] MEDS ORDERED: Sennosides/Docusate Sodium TABLET PO PRN (23:38)
[2018-08-19] MEDS: *HR* Heparin 5,000 UNIT/ML VIAL SQ SCH (05:59)
[2018-08-19] MEDS: MORPHINE SUL Oral CONC 10 MG/0.5 ML ORAL.SYG SL PRN ×3 (05:59→15:06)
--- NOTE | 2018-08-19 07:45 | Cardiothoracic Progress Note ---
Date of Encounter: 08/19/18 Time of Encounter: 07:43 - Assessment and plan (1) CAD (coronary artery disease) Current Visit: No Status: Chronic The assessment and plan as outlined above was discussed with the patient and/or family members who expressed understanding and agreement. All questions were answered. I reviewed the patient's cardiac catheterization with Dr. Brannon. The patient has had numerous stents and has severe triple-vessel disease with preserved left ventricular function. Unfortunately, the vessels are small and diffusely diseased. The areas where the stents are look okay, but would not be able to accept a graft in this location. Distal to the stents, the arteries are small and diffusely diseased. We recommend transfer to [facility] or the [facility] for further workup and treatment. Qualifiers: Coronary Disease-Associated Artery/Lesion type: [place] artery [place] vs. transplanted heart: [place] heart Associated angina: with unstable angina Qualified Code(s): I25.110 - Atherosclerotic heart disease of [place] coronary artery with unstable angina pectoris - Subjective Interval history: The patient has had no chest pain and no angina. Vital Signs, Last 4 Hours Temp Pulse Resp BP Pulse Ox 08/19/18 06:00 99.2 F 70 16 92/64 95 Clinical Data, last 8 Hours Output, Urine Amount 1,000 Weight 08/17/18 08/18/18 08/19/18 23:59 23:59 23:59 Weight 78.2 kg 75.1 kg 75.43 kg Lungs are clear to percussion and auscultation. Heart is in a normal sinus rhythm. - Labs 08/18/18 04:33 08/18/18 04:33 Consult Discharge Plan - Plan Referrals: Louisa Hendrickson MD [Primary Care Provider] -
[2018-08-19] MEDS: Lisinopril 20 MG TABLET PO SCH (08:03)
[2018-08-19 08:15] LABS: Basophils % 0.6 %; Eosinophils # 0.2 K/mcL (0.0-0.6); Eosinophils % 3.3 %; Hematocrit 41.8 % (37.5-50.1); Hemoglobin 14.1 g/dL (12.9-16.9); Immature Granulocytes % 0.5 % (0-4); Lymphocytes # 2.3 K/mcL (0.6-4.6); Lymphocytes % 36.2 %; Mean Corpuscular HGB Conc 33.7 g/dL (31.6-35.5); Mean Corpuscular Volume 91.9 fL (83.0-100.0); Monocytes # 0.7 K/mcL (0.0-1.3); Monocytes % 11.1 %; Platelet Count 224 K/mcL (140-400); Red Blood Count 4.55 M/mcL (4.19-5.50); Red Cell Distribution Width 12.7 % (11.5-14.5); Segmented Neutrophils % 48.3 %
[2018-08-19 08:23] LABS: BUN/Creatinine Ratio 20 (6-26); Blood Urea Nitrogen 23 mg/dL (8-23); Calcium 9.6 mg/dL (8.6-10.3); Carbon Dioxide 24 mEq/L (23-29); Chloride 102 mEq/L (98-107); Glucose 114 mg/dL (70-105); Osmolality,Calculated 283 (280-300); Potassium 4.1 mEq/L (3.5-5.1); Sodium 134 mEq/L (136-145); eGFR For Non-African Americans > 60 (> 60)
--- NOTE | 2018-08-19 09:08 | Cardiology Progress Note ---
Date of Encounter: 08/19/18 Time of Encounter: 09:06 Assessment and Plan (1) CAD (coronary artery disease) Current Visit: No Status: Chronic History of multiple PCI. [facility] severe 3V CAD[address] CT surgery consulted. Currently 06/19 CP with radiation to left jaw. Declines nitro gtt stating it makes him sick. Started Imdur 30mg yesterday, unable to uptitrate due to hypotension. Continue ASA, Statin, BB. Vessels are small and diffusely diseased. Distal to the stents, arteries are small and diffusely diseased. CT surgery recommends transfer to [facility] or [facility] for further evaluation. Pt prefers [facility]. Recommend transfer to [facility] per primary team. Cardiology signing off. Reconsult PRN. Will coordinate outpt follow-up. Qualifiers: Coronary Disease-Associated Artery/Lesion type: [place] artery [place] vs. transplanted heart: [place] heart Associated angina: with unstable angina Qualified Code(s): I25.110 - Atherosclerotic heart disease of [place] coronary artery with unstable angina pectoris (2) Unstable angina Current Visit: Yes Status: Acute Significant cardiac history. History of 13 cardiac stents. Previously followed with report clerk at [facility]. Presented with symptoms similar to prior anginal equivalent. [facility] as above. CT surgery consulted--transfer to [facility] for further evaluation. Continue nitrates. Discussion w patient/family: The assessment and plan as outlined above was discussed with the patient and/or family members who expressed understanding and agreement. All questions were answered. Thank you for involving us in the care of your patient. Please call with any questions. I will discuss all the above with Dr. Rascon and make changes as necessary. Subjective Principal diagnosis: Chest pain Interval history: Pt continues to have chest pain with radiation to left jaw, currently 06/19. Reviewed CT surgery note from this AM--recommend transfer to [facility] or [facility]. Pt prefers [facility] transfer. Objective Vital Signs, Last 4 Hours Temp Pulse Resp BP Pulse Ox 08/19/18 08:44 98.6 F 72 16 95/61 97 08/19/18 06:00 99.2 F 70 16 92/64 95 Vital Signs Temp Pulse Resp BP Pulse Ox 08/19/18 08:44 98.6 F 72 16 95/61 97 08/19/18 06:00 99.2 F 70 16 92/64 95 08/18/18 20:54 97.8 F 82 22 109/66 97 08/18/18 16:34 98 F 59 15 103/67 97 Intake and Output 08/18/18 08/19/18 08/19/18 23:59 07:59 15:59 Intake Total 0 / 0 0 / 0 Output Total 900 / 900 1000 / 1000 Balance -900 / -900 -1000 / -1000 Intake: Oral 0 / 0 0 / 0 Output: Urine 900 / 900 1000 / 1000 Other: # Voids 0 Weight 75.43 kg Patient Weight 08/19/18 23:59 Weight 75.43 kg General: Conversant, No Apparent Distress HEENT: Atraumatic, Normocephaly, Mucus Membranes Moist Neck: No JVD, Normal carotid pulses Cardiac: Reg Rate and Rhythm, Normal S1 and S2, No Murmur Lungs: Normal Breath Sounds, No Wheeze, Rales, Rhonchi Neuro: Alert and responsive, No focal deficits noted Abdomen: Soft, Non-Tender Skin: No rashes noted on visualized skin Musculoskeletal: No Chest Wall Tenderness Extremities: No Clubbing, No Cyanosis, No Edema, Normal Pulses Results 08/19/18 06:51 08/19/18 06:51 Lab Results 08/19/18 08/19/18 06:51 06:51 WBC 6.3 Hgb 14.1 Hct 41.8 Plt Count 224 Sodium 134 L Potassium 4.1 Chloride 102 Carbon Dioxide 24 BUN 23 Creatinine 1.13 Glucose 114 H Calcium 9.6 Short CBC 08/19/18 Range/Units 06:51 WBC 6.3 (4.3-11.1) K/mcL Hgb 14.1 (12.9-16.9) g/dL Hct 41.8 (37.5-50.1) % Plt Count 224 (140-400) K/mcL Neutrophils # 3.0 (1.6-8.9) K/mcL BMP 08/19/18 Range/Units 06:51 Sodium 134 L (136-145) mEq/L Potassium 4.1 (3.5-5.1) mEq/L Chloride 102 (98-107) mEq/L Carbon Dioxide 24 (23-29) mEq/L BUN 23 (8-23) mg/dL Creatinine 1.13 (0.70-1.30) mg/dL Glucose 114 H (70-105) mg/dL Calcium 9.6 (8.6-10.3) mg/dL Active Medications Acetaminophen (Tylenol) 650 mg PO Q6HR PRN PRN Reason: Mild Pain/Fever Stop: 02/13/19 18:47 Aspirin (Aspirin) 81 mg PO DAILY [facility] Stop: 02/15/19 13:16 Last Admin: 08/18/18 07:48 Dose: 81 mg Atorvastatin Calcium (Lipitor) 80 mg PO HS [facility] Stop: 02/15/19 21:01 Last Admin: 08/18/18 20:07 Dose: 80 mg Carvedilol (Coreg) 25 mg PO BIDWM [facility] PRN Reason: Protocol Stop: 02/13/19 21:01 Last Admin: 08/18/18 17:27 Dose: 25 mg Docusate Sodium (Colace) 100 mg PO BID [facility] PRN Reason: Protocol Stop: 02/17/19 23:46 Last Admin: 08/18/18 23:52 Dose: 100 mg Escitalopram Oxalate (Lexapro) 10 mg PO DAILY [facility] Stop: 02/14/19 09:01 Last Admin: 08/18/18 07:48 Dose: 10 mg Finasteride (Proscar) 5 mg PO DAILY [facility] PRN Reason: Protocol Stop: 02/14/19 09:01 Last Admin: 08/18/18 07:49 Dose: 5 mg Gabapentin (Neurontin) 600 mg PO TID [facility] Stop: 02/13/19 21:01 Last Admin: 08/18/18 20:06 Dose: 600 mg Heparin Sodium (Porcine) (Heparin) 5,000 unit SQ Q12HCO [facility] Stop: 02/15/19 18:01 Last Admin: 08/19/18 05:59 Dose: 5,000 unit Isosorbide Mononitrate (Imdur) 30 mg PO DAILY [facility] Stop: 02/17/19 12:01 Last Admin: 08/18/18 12:46 Dose: 30 mg Lamotrigine (Lamictal) 100 mg PO BID [facility] Stop: 02/13/19 21:01 Last Admin: 08/18/18 20:06 Dose: 100 mg Lisinopril (Zestril) 20 mg PO DAILY [facility] PRN Reason: Protocol Stop: 02/14/19 09:01 Last Admin: 08/19/18 08:03 Dose: Not Given Morphine Sulfate (Roxanol Oral Conc) 2 mg SL Q4HR PRN PRN Reason: Chest Pain Stop: 02/17/19 14:01 Last Admin: 08/19/18 05:59 Dose: 2 mg Naloxone HCl (Narcan) 0.4 mg IVP Q2MIN PRN PRN Reason: SEE COMMENTS Stop: 02/13/19 18:47 Nitroglycerin (Nitroglycerin) 0.4 mg SL Q5MIN PRN PRN Reason: Chest Pain Stop: 02/16/19 10:18 Last Admin: 08/17/18 12:26 Dose: 0.4 mg Omeprazole (Prilosec) 20 mg PO DAILY@0730 [facility] Stop: 02/14/19 07:31 Last Admin: 08/18/18 07:48 Dose: 20 mg Ranolazine (Ranexa) 1,000 mg PO BID [facility] Stop: 02/13/19 21:01 Last Admin: 08/18/18 20:06 Dose: 1,000 mg Senna/Docusate Sodium (Senna Plus) 1 each PO DAILY PRN; Protocol PRN Reason: Constipation Stop: 02/17/19 23:39 Tamsulosin HCl (Flomax) 0.4 mg PO DAILY [facility] PRN Reason: Protocol Stop: 02/14/19 09:01 Last Admin: 08/18/18 07:48 Dose: 0.4 mg Vitamin D (Vitamin D) 1,000 unit PO DAILY [facility] Stop: 02/14/19 09:01 Last Admin: 08/18/18 07:49 Dose: 1,000 unit Vitamin E (Vitamin E) 1,000 unit PO DAILY [facility] Stop: 02/14/19 09:01 Last Admin: 08/18/18 07:48 Dose: 1,000 unit - Imaging and Cardiology Echo: report reviewed Cardiac cath: report reviewed Consult Discharge Plan - Plan Referrals: Louisa Hendrickson MD [Primary Care Provider] - 08/31/18 2:20 pm
[2018-08-19] MEDS: Aspirin 81 MG TAB.CHEW PO SCH (09:09)
[2018-08-19] MEDS: Ranolazine 500 MG TAB.ER.12H PO SCH (09:12)
[2018-08-19] MEDS: Cholecalciferol (D-3) 1,000 UNIT TABLET PO SCH (09:14)
[2018-08-19] MEDS: Finasteride 5 MG TABLET PO SCH (09:15)
[2018-08-19] MEDS: Gabapentin 300 MG CAPSULE PO SCH (09:16)
[2018-08-19] MEDS: Isosorbide MONOnitrate (24 HR) 30 MG TAB.ER.24H PO SCH (09:17)
[2018-08-19] MEDS: lamoTRIgine 100 MG TABLET PO SCH (09:18)
--- NOTE | 2018-08-19 10:03 | Discharge Summary ---
<Fracisco Lewis Chris - Last Filed: 08/19/18 14:43> - NOTES TO OUTPATIENT PROVIDER Notes to Outpatient Provider: See clinical course Orders not resulted at time of discharge: Pending orders 08/16/18 10:12 NM seema perf SPECT multi [NM] Routine 08/17/18 10:08 EKG [ECG 12 lead ECG] [ECG] Stat Date of Encounter: 08/19/18 Time of Encounter: 10:02 - Discharge Diagnosis (1) CAD (coronary artery disease) Priority: Secondary Status: Chronic Assessment and Plan: Continue ASA, Coreg, Imdur, and Lipitor Continue home Ranexa Discussed the importance of continuing statin with the pt. Pt had taken statin previously, but stated it upset his stomach some. However after discussing the importance of medication management post intervention, pt was amenable to continuing statin. Qualifiers: Coronary Disease-Associated Artery/Lesion type: [place] artery [place] vs. transplanted heart: [place] heart Associated angina: with unstable angina Qualified Code(s): I25.110 - Atherosclerotic heart disease of [place] coronary artery with unstable angina pectoris (2) Hemiplegic migraine Priority: Secondary Status: Chronic Assessment and Plan: 8 year hx of hemiplegic migraine Pt describes typical aura as stabbing occipital pain with starbursts in his vision, then feels very weak in his left extremities. States his most recent migraine was approximately [address] Jauregui in outpatient setting CT head was negative Symptoms from yesterday completely resolved. Moving all 4 extremities spontaneously. No slurred speech or facial droop. Cocktail of Compazine, Benadry, Decadron, and pain medication as needed for further episodes. Continue home Lamictal Qualifiers: Status migrainosus presence: without status migrainosus Intractability: not intractable Qualified Code(s): G43.409 - Hemiplegic migraine, not intractable, without status migrainosus (3) HTN (hypertension) Priority: Secondary Status: Chronic Assessment and Plan: during this encounter Continue to monitor closely Continue Lisinopril Qualifiers: Hypertension type: essential hypertension Qualified Code(s): I10 - Essential (primary) hypertension (4) Unstable angina Priority: Primary Status: Acute Assessment and Plan: Significant history of CAD s/p 13 stents and pacemaker Serial troponins negative EKG from ED revealed sinus rhythm with right bundle branch block, no acute ST-T change CT of the chest revealed no PE, no aortic dissection or aneurysm, no other acute abnormalities in both lungs. Was started on nitro drip and received 1 dose of Brilinta at the ED Patient chest pain improved for short periods of time with Fentanyl Cardio ok'ed stopping Nitro and Heparin drip since pain was relieved only with pain meds LHC showed severe multivessel disease which may require a hybrid CABG type procedure Cardiology and CT surgery are on board and recommended transfer to [facility] for further evaluation Continue ASA, Coreg, Lipitor, and [facility] course: Mr. Bingham is a 63 year old male who presented to the ED on 08/14 complaining of chest pain refractory to home doses of nitroglycerin. He was reportedly sitting on the couch watching tv when he felt a squeezing sensation in his chest. He did admit to some associated nausea and diaphoresis at that time. Patient's EKG in the ED showed T-wave inversions throughout the anterior leads without significant elevations or depressions. A posterior EKG was performed which did not show any elevations within the 70 8V9. He was given a dose of Brilinta per cardio recs and was placed on a nitro drip. On the morning of 08/15 the pt reported an episode of stabbing pain in his occiput with starburts, followed by left arm and leg weakness, left facial droop and slurred speech. He states these symptoms are related to his hemiplegic migraines, which he has had for the past [address] follows with Dr Jauregui in the outpatient setting. These hemiplegic migraines are relieved by a cocktail of Compazine, Benadryl, steroids , and pain medication. The weakness, facial droop, slurred speech, and positive Babinski sign on the left had all completely resolved yesterday within 1-2 hours of aforementioned cockatil administration. He was unable to complete the exercise stress test on 08/17 and subsequently underwent a LHC. The LHC revealed significant coronary disease. CT surg was consulted by cardiology and recommended pt be worked up further at [facility] or [facility]. Pt elected to go to [facility]. Discharge discussed with: patient, nurse, sap pp consultant - Time Spent with Patient Total time spent providing and/or coordinating discharge services: - Discharge Medications Prescriptions: Aspirin 81 mg PO DAILY 30 Days #30 tab.chew Atorvastatin [Lipitor] 80 mg PO HS 30 Days #30 tablet Isosorbide MONOnitrate (24 HR) [Imdur] 30 mg PO DAILY 30 Days #30 tab.er.24h Home Medications: Carvedilol [Coreg] 25 mg PO BID 08/14/18 [History] Cholecalciferol (D-3) [Vitamin D] 1,000 unit PO DAILY 08/14/18 [History] Escitalopram [Lexapro] 10 mg PO DAILY 08/14/18 [History] Finasteride [Proscar] 5 mg PO DAILY 08/14/18 [History] Gabapentin [Neurontin] 600 mg PO TID 08/14/18 [History] Lisinopril [Zestril] 20 mg PO DAILY 08/14/18 [History] Pantoprazole Sodium [Protonix] 40 mg PO DAILY 08/14/18 [History] Ranolazine [Ranexa] 1,000 mg PO BID 08/14/18 [History] Tamsulosin [Flomax] 0.4 mg PO DAILY 08/14/18 [History] Vitamin E 1,000 unit PO DAILY 08/14/18 [History] lamoTRIgine [Lamictal] 100 mg PO BID 08/14/18 [History] Aspirin 81 mg PO DAILY 30 Days #30 tab.chew 08/19/18 [Rx] Atorvastatin [Lipitor] 80 mg PO HS 30 Days #30 tablet 08/19/18 [Rx] Isosorbide MONOnitrate (24 HR) [Imdur] 30 mg PO DAILY 30 Days #30 tab.er.24h 08/27 [Rx] Allergies/Adverse Reactions: 3 Allergy/AdvReac Type Severity Reaction Status Date / Time hydrochlorothiazide Allergy Hives Verified 08/14/18 16:04 sumatriptan [From Imitrex] Allergy Anaphylaxis Verified 08/14/18 16:04 Date of admission: 08/15/18 10:36 Primary care physician: Louisa Hendrickson MD Discharging clinician: Fracisco Skaggs Constitutional Vitals: Temp Pulse Resp BP Pulse Ox 98.6 F 72 16 95/61 97 08/19/18 08:44 08/19/18 08:44 08/19/18 08:44 08/19/18 08:44 08/19/18 08:44 General appearance: Present: cooperative, A&O X 3, answers questions appropriately Exam: Constitutional: well developed, well nourished, pleasant, no acute distress Head: atraumatic, normocephalic Eyes: PERRL, EOMI, sclera anicteric Neck: supple, trachea midline, no lymphadenopathy Lungs: CTA bilaterally. non-labored breathing. no wheezes, rales, or rhonchi Heart: RRR +S1 +S2. no murmurs, clicks, or rubs appreciated. GI: abdomen soft, non-tender, non-distended. Extremities: moving all 4 spontaneously. No cyanosis or edema. Radial pulses palpable and symmetrical Neuro: A&Ox3. No facial droop. No speech difficulty or abnormality. Strength intact in all 4 extremities. No focal deficits. Skin: warm, dry, intact - Patient Status Disposition: Transfer Other Condition: Fair Functional capacity at discharge: independent ambulation Overall status at discharge: patient is progressing back to baseline - Discharge Instructions Follow Up With: Louisa Hendrickson MD [Primary Care Provider] - 08/31/18 2:20 pm - Diet and Activity Activity: as per the cardiac rehab, increase activity as tolerated, resume usual activities as tolerated Diet: low fat, low cholesterol, low salt diet <Lizy Solorio - Last Filed: 08/19/18 16:50> Orders not resulted at time of discharge: Pending orders 08/16/18 10:12 NM seema perf SPECT multi [NM] Routine Date of Encounter: 08/19/18 - Discharge Diagnosis (1) CAD (coronary artery disease) Status: Chronic Qualifiers: Coronary Disease-Associated Artery/Lesion type: [place] artery [place] vs. transplanted heart: [place] heart Associated angina: with unstable angina Qualified Code(s): I25.110 - Atherosclerotic heart disease of [place] coronary artery with unstable angina pectoris (2) HTN (hypertension) Status: Chronic Qualifiers: Hypertension type: essential hypertension Qualified Code(s): I10 - Essential (primary) hypertension (3) Hemiplegic migraine Status: Chronic Qualifiers: Status migrainosus presence: without status migrainosus Intractability: not intractable Qualified Code(s): G43.409 - Hemiplegic migraine, not intractable, without status migrainosus (4) Unstable angina Status: Acute Hospital course: Mr. Bingham is a 63 year old male - Time Spent with Patient Total time spent providing and/or coordinating discharge services: Date of admission: 08/15/18 10:36 Primary care physician: Louisa Hendrickson MD - Constitutional Vitals: Temp Pulse Resp BP Pulse Ox 98.6 F 73 18 97/70 98 08/19/18 11:27 08/19/18 11:27 08/19/18 11:27 08/19/18 11:27 08/19/18 11:27 - Attending Attestation 63M with PMH of CAD with previous WI, 13 stents and a pacemaker, HTN, and hemiplegic migraines. He presented to the ED on 08/14 complaining of chest pain refractory to home doses of nitroglycerin. He was reportedly sitting on the couch watching tv when he felt a squeezing sensation in his chest. He did admit to some associated nausea and diaphoresis at that time. Patient's EKG in the ED showed T-wave inversions throughout the anterior leads without significant elevations or depressions. S; Still has chest pain this am Exam General: Conversant, No Apparent Distress HEENT: Atraumatic, Normocephaly, Mucus Membranes Moist Neck: No JVD, Normal carotid pulses Cardiac: Reg Rate and Rhythm, Normal S1 and S2, No Murmur Lungs: Normal Breath Sounds, No Wheeze, Rales, Rhonchi Neuro: Alert and responsive, No focal deficits noted Abdomen: Soft, Non-Tender Skin: Other (right femoral access site healing well. No bleeding, hematoma or ecchymosis noted.) Musculoskeletal: No Chest Wall Tenderness Extremities: No Clubbing, No Cyanosis, No Edema, Normal Pulses Plan Acute coronary syndrome/ Unstable Angina. s/p LHC severe multivessel disease. Cardiology and cardiothoracic surgery recommend transfer to [facility] for further management due to severe triple vessel disease. Agree with discharge summary as above. 35minutes was spent discharging this patient
[2018-08-19 11:28] VITALS: BP 97/70
[2018-08-20] MEDS ORDERED: Lisinopril 20 MG TABLET PO SCH (09:00)
== END 2018-08-19 15:44 | disposition other institution (70) | DRG 287 ==
LOC: 2NNU 15:27 → EMEROOARM 15:27 → 2NNU 20:49 → SUATTDRO 08-15 10:36 → 2NENU 08-15 19:50
PROVIDERS: ADMIT Internal Medicine; ATTEND Student in an Organized Health Care Education/Training Program

== ENCOUNTER 2019-05-07 18:11 | Observation (INO) ==
[2019-05-07 18:47] LABS: Basophils # 0.3 K/mcL (0.0-0.2); Basophils % 2.2 %; Eosinophils # 0.1 K/mcL (0.0-0.6); Eosinophils % 0.4 %; Hematocrit 43.9 % (37.5-50.1); Hemoglobin 14.9 g/dL (12.9-16.9); Immature Granulocytes % 9.1 % (0-4); Lymphocytes # 3.1 K/mcL (0.6-4.6); Lymphocytes % 27.2 %; Mean Corpuscular HGB Conc 33.9 g/dL (31.6-35.5); Mean Corpuscular Hemoglobin 32.6 pg (28.0-33.3); Mean Corpuscular Volume 96.1 fL (83.0-100.0); Mean Platelet Volume 9.4 fL (9.4-12.4); Monocytes # 1.3 K/mcL (0.0-1.3); Monocytes % 11.1 %; Neutrophils # 5.7 K/mcL (1.6-8.9); Platelet Count 208 K/mcL (140-400); Red Blood Count 4.57 M/mcL (4.19-5.50); White Blood Count 11.4 K/mcL (4.3-11.1)
--- NOTE | 2019-05-07 18:56 | Emergency Department Note ---
Disposition Clinical Impression: Chest pain Qualifiers: Chest pain type: unspecified Qualified Code(s): R07.9 - Chest pain, unspecified Disposition: Admitted As Inpatient Condition: Fair Time of Disposition: 23:03 General Adult HPI - General Chief complaint: ED Chest Pain Stated complaint: CP x3days Time Seen by Provider: 05/07/19 18:19 Source: patient, family Limitations: no limitations Nursing Notes Reviewed: Yes Vital Signs Reviewed: Yes - History of Present Illness HPI Narrative: Patient presents with chest pain and he does have a history of 17 cardiac stents and he said he has cardiac chronic chest pain and presents now with chest pain which is constant for the last 3 days radiation to the back as well as to the left jaw. He does not have an exertional component. No diaphoresis or dyspnea. No pleuritic aspect. He states he typically has chest pain but this is worse than usual. Sometimes he has pain radiating to the back and sometimes not so this is not a new finding for him but is not typical. No pain or swelling of the lower extremities. Social history: Is here with his Pain Scale: 10 - Related Data Home Medications Medication Instructions Recorded Confirmed Finasteride [Proscar] 5 mg PO DAILY 08/14/18 03/03/19 Gabapentin [Neurontin] 600 mg PO TID 08/14/18 03/03/19 Pantoprazole Sodium [Protonix] 40 mg PO QPM 08/14/18 03/03/19 Ranolazine [Ranexa] 1,000 mg PO BID 08/14/18 03/03/19 Tamsulosin [Flomax] 0.4 mg PO DAILY 08/14/18 03/03/19 Vitamin E 1,000 unit PO DAILY 08/14/18 03/03/19 lamoTRIgine [Lamictal] 100 mg PO BID 08/14/18 03/03/19 Clopidogrel [Plavix] 75 mg PO DAILY 01/24/19 03/03/19 Diltiazem [Cardizem] 30 mg PO BID 01/24/19 03/03/19 Tizanidine HCl 4 mg PO BID PRN 01/24/19 03/03/19 Acetaminophen [Tylenol] 975 mg PO QPM 03/03/19 03/03/19 Aspirin [Adult Aspirin Regimen] 81 mg PO DAILY 03/03/19 03/09/19 Cholecalciferol (Vitamin D3) 6,000 unit PO DAILY 03/03/19 03/09/19 [Vitamin D3] Escitalopram [Lexapro] 20 mg PO DAILY 03/03/19 03/09/19 Previous Rx's Medication Instructions Recorded Atorvastatin [Lipitor] 80 mg PO HS 30 Days #30 tablet 08/19/18 Isosorbide MONOnitrate (24 HR) 120 mg PO DAILY #60 tab.er.24h 03/05/19 [Imdur] Metoprolol XL (24 HR) Succ [Toprol 50 mg PO DAILY #30 tab.er.24h 03/05/19 Xl] Allergies Allergy/AdvReac Type Severity Reaction Status Date / Time hydrochlorothiazide Allergy Vomiting Verified 05/07/19 18:33 nitroglycerin Allergy Vomiting Verified 05/07/19 18:33 sumatriptan [From Imitrex] Allergy Anaphylaxis Verified 05/07/19 18:33 All systems ED: reviewed and negative except as stated. Past Medical History - Past Medical History Medical history: Reports: coronary artery disease, CVA, GERD, hyperlipidemia, h ypertension, migraine, myocardial infarction, osteoporosis, TIA Surgical history: Reports: orthopedic, other, pacemaker/AICD Psychiatric history: Reports: depression - Social History Smoking Status: Never smoker Smokeless Tobacco Status: No Alcohol use: Reports: none Drug use: Reports: marijuana Physical Exam CONSTITUTIONAL: Does appear uncomfortable, skin is dry ; well-nourished; A&O X 3, in no apparent distress HEAD: Normocephalic; atraumatic EYES: PERRL, no scleral icterus NOSE: The nose is normal in appearance without rhinorrhea NECK: No JVD or distended neck veins RESP: Normal chest excursion with respiration; breath sounds clear and equal bilaterally; no wheezes, rhonchi, or rales CARD: Regular rhythm, without murmurs, rub or gallop ABD: Non-distended; non-tender, soft, without rigidity, rebound or guarding,no pulsatile mass CHEST: No pain with palpation SKIN: Normal for age and race; warm and dry without diaphoresis ; no apparent lesions EXTREMITIES: Pulses are 2 plus and equal times 4 extremities, no peripheral edema or calf muscle pain - General Limitations: no limitations General appearance: alert, in no apparent distress Course Vital Signs Temperature 97.8 F 05/07/19 18:33 Pulse Rate 81 06/28/19 18:33 Respiratory Rate 15 05/07/19 18:33 Blood Pressure 141/112 05/07/19 18:33 O2 Sat by Pulse Oximetry 97 05/07/19 18:33 Temperature 98.3 F 05/07/19 21:25 Pulse Rate 68 05/07/19 21:25 Respiratory Rate 16 05/07/19 21:25 Blood Pressure 127/81 05/07/19 21:25 O2 Sat by Pulse Oximetry 97 05/07/19 21:25 Oxygen Delivery Oxygen Delivery Nasal Cannula Medical Decision Making - [facility] Narrative Medical decision making narrative: I did review the patient's EKG and he does have a history on past EKGs of right bundle-branch block and his current EKG also does show right bundle-branch block but does not show acute ST elevation myocardial infarction or evidence of arrhythmia and labs are ordered including troponin and I will coordinate care with cardiology. I did review his previous records. [address] I did speak with Dr. Weston from cardiology and he agrees with admission for further evaluation of cardiac disease. He would like the decision for pain medicine left up to us and in my practice I have never given narcotic medication for chest pain and at this point I will treat the patient with oral acetaminop hen 1000 mg. I will go and reassessed the patient at this time and inform them of the admission plan our concern for his cardiac disease 1915 I did speak with the hospitalist accepts the patient for admission. 2302 - Medical Records Medical records reviewed: Yes I reviewed the patient's medical records. - Lab Data Lab results reviewed: Yes I reviewed the patient's lab results. Result diagrams: 05/07/19 18:31 05/07/19 18:31 Lab Results 05/07/19 05/07/19 Range/Units 18:31 18:31 WBC 11.4 H (4.3-11.1) K/mcL RBC 4.57 (4.19-5.50) M/mcL Hgb 14.9 (12.9-16.9) g/dL Hct 43.9 (37.5-50.1) % MCV 96.1 (83.0-100.0) fL MCH 32.6 (28.0-33.3) pg MCHC 33.9 (31.6-35.5) g/dL RDW 13.0 (11.5-14.5) % Plt Count 208 (140-400) K/mcL MPV 9.4 (9.4-12.4) fL Immature Gran % 9.1 H (0-4) % Seg Neutrophils % 50.0 % Lymphocytes % 27.2 % Monocytes % 11.1 % Eosinophils % 0.4 % Basophils % 2.2 % Neutrophils # 5.7 (1.6-8.9) K/mcL Lymphocytes # 3.1 (0.6-4.6) K/mcL Monocytes # 1.3 (0.0-1.3) K/mcL Eosinophils # 0.1 (0.0-0.6) K/mcL Basophils # 0.3 H (0.0-0.2) K/mcL Reactive Lymphocytes Present A (Not Present) Platelet Estimate Normal (Normal) Sodium 137 (136-145) mEq/L Potassium 3.8 (3.5-5.1) mEq/L Chloride 104 (98-107) mEq/L Carbon Dioxide 22 L (23-29) mEq/L BUN 19 (8-23) mg/dL Creatinine 1.24 (0.70-1.30) mg/dL Est GFR ( Amer) > 60 (> 60) Est GFR (Non-Af Amer) 59 L (> 60) BUN/Creatinine Ratio 15 (6-26) Glucose 103 (70-105) mg/dL Calculated Osmolality 287 (280-300) Calcium 9.9 (8.6-10.3) mg/dL Troponin I < 0.03 (< 0.04) ng/mL - Radiology Data Radiology results reviewed: Yes I reviewed the patient's radiology results.
[2019-05-07 19:05] LABS: BUN/Creatinine Ratio 15 (6-26); Blood Urea Nitrogen 19 mg/dL (8-23); Calcium 9.9 mg/dL (8.6-10.3); Carbon Dioxide 22 mEq/L (23-29); Chloride 104 mEq/L (98-107); Glucose 103 mg/dL (70-105); Osmolality,Calculated 287 (280-300); Potassium 3.8 mEq/L (3.5-5.1); Sodium 137 mEq/L (136-145); eGFR For African Americans > 60 (> 60); eGFR For Non-African Americans 59 (> 60)
[2019-05-07 19:06] LABS: Troponin I < 0.03 ng/mL (< 0.04)
[2019-05-07 19:38] LABS: Platelet Estimate Normal (Normal); Reactive Lymphocytes Present (Not Present)
[2019-05-08] MEDS ORDERED: Naloxone 0.4 MG/ML INJ IVP PRN (01:58)
[2019-05-08] MEDS: Morphine Sulfate 2 MG/ML SYRINGE IVP PRN ×4 (02:10→20:47)
--- NOTE | 2019-05-08 05:04 | Internal Med History&Physical ---
Date of Encounter: 05/08/19 Time of Encounter: 01:30 Internal Medicine - H&P: HPI Chief complaint: Chest Pain Admitted From: Home Plans for Post Hospital Care: Home History of present illness: Mr. Bingham is a 63 year old male with past medical history significant for CAD with stents x17, [place] x3, pacemaker, CVA, TIA, gerd, hypertension, hyperlipidemia, migraine, and depression who presents for complaints of intermittent chest pain over past two days getting progressively worse described as someone sitting on his chest. Pain is rated at 10/10 at its worst and radiates to the right side of his chest and into his back. Pain is intermittent lasting around five minutes. Pain is associated with shortness of breath, nausea, vomiting, and diaphoresis. ER reported EKG as right bundle branch block with no acute ST elevation or arrythmia. Chest xray showed no evidence of acute cardiopulmonary process and suggestion of a trace amount right pleural fluid versus scarring that remains unchanged. 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 Patient was given 1 gram of Tylenol while in ER. Patient currently denies any headache, shortness of breath, cough, abdominal pain, bowel or bladder changes. Patient was chest pain free initially during my assessment but later did report a brief episode of chest pain that resolved. Patient recently had cardiac catheterization in January 2019 and had his 17th stent placed. Was also recently admitted to [facility] 03/03/19 - 03/06/19 for chest pain and had his Imdur increased at that time. Follows regularly with his PCP and cardiology. Denies any alcohol or tobacco use but does report occasional marijuana use. Past Med Surg Social Fam HX - Past Medical History Medical history: coronary artery disease, CVA, GERD, hyperlipidemia, hypertension, migraine, myocardial infarction, TIA Additional medical history: 17 cardiac stents. Pacemaker. Hemaplegic migraines Psychiatric history: depression - Past Surgical History Surgical History: orthopedic, other, pacemaker/AICD Additional surgical history: Left rotator cuff repair, 17 stents placed - Social History Smoking Status: Never smoker Smokeless Tobacco Status: No Alcohol use: none Drug use: marijuana - Family History Father Family Member Ethnicity: Non- Living Status: Hx Family Cardiac Disorders: Yes ([place]) Hx Family Neurologic Disorders: Yes (Alzheimers) Mother Family Member Ethnicity: Non- Living Status: Hx Family Cardiac Disorders: Yes (mother,fATHER,sister) Hx Family Respiratory Disorders: Yes (mother) Hx Family Cancer: No Hx Family GI Disorders: No Hx Family Endocrine Disorder: No Hx Family Neuromuscular Disorders: No Hx Family Neurologic Disorders: Yes (self) Hx Family HEENT Disorders: No Hx Family Autoimmune Disorders: No Brother Family Member Ethnicity: Non- Living Status: Hx Family Cardiac Disorders: Yes (AIDS) Sister Family Member Ethnicity: Non- Living Status: Still Living Hx Family Cardiac Disorders: Yes (HTN) Internal Medicine - H&P: Meds Finasteride [Proscar] 5 mg PO DAILY 08/14/18 [History] Gabapentin [Neurontin] 600 mg PO TID 08/14/18 [History] Pantoprazole Sodium [Protonix] 40 mg PO QPM 08/14/18 [History] Ranolazine [Ranexa] 1,000 mg PO BID 08/14/18 [History] Tamsulosin [Flomax] 0.4 mg PO DAILY 08/14/18 [History] Vitamin E 1,000 unit PO DAILY 08/14/18 [History] lamoTRIgine [Lamictal] 100 mg PO BID 08/14/18 [History] Atorvastatin [Lipitor] 80 mg PO HS 30 Days #30 tablet 08/19/18 [Rx] Clopidogrel [Plavix] 75 mg PO DAILY 01/24/19 [History] Diltiazem [Cardizem] 30 mg PO BID 01/24/19 [History] Tizanidine HCl 4 mg PO BID PRN 01/24/19 [History] Acetaminophen [Tylenol] 975 mg PO QPM 03/03/19 [History] Aspirin [Adult Aspirin Regimen] 81 mg PO DAILY 03/03/19 [History] Cholecalciferol (Vitamin D3) [Vitamin D3] 6,000 unit PO DAILY 03/03/19 [History] Escitalopram [Lexapro] 20 mg PO DAILY 03/03/19 [History] Isosorbide MONOnitrate (24 HR) [Imdur] 120 mg PO DAILY #60 tab.er.24h 03/05/19 [Rx] Metoprolol XL (24 HR) Succ [Toprol Xl] 50 mg PO DAILY #30 tab.er.24h 03/05/19 [Rx] Allergy/AdvReac Type Severity Reaction Status Date / Time hydrochlorothiazide Allergy Vomiting Verified 05/07/19 18:33 nitroglycerin Allergy Vomiting Verified 05/07/19 18:33 sumatriptan [From Imitrex] Allergy Anaphylaxis Verified 05/07/19 18:33 All Systems PM: A 10-system review of systems was performed and is negative for pertinent findings except as documented above in the HPI. - Constitutional Vitals: Temp Pulse Resp BP Pulse Ox 98.2 F 63 16 116/68 96 05/08/19 03:30 05/08/19 03:30 05/08/19 03:30 05/08/19 03:30 05/08/19 03:30 Exam: General: Alert and oriented. Skin:Normal color, no rash, no lesions. HEENT:Pupils equal, round and reactive. Cardiovascular:Normal S1 & S2, no rubs, murmurs or gallops. No JVD. Pulse regular. Lungs:Breath sounds decreased, no wheezes or crackles. Abdomen:Soft, non-tender, no rigidity. Extremities:No deformity, no edema or tenderness, no joint swelling or clubbing. Neurological:Normal cognition and motor skills. Pulses:Carotid and radial pulses normal +2. Rest of the physical exam is non contributory. Internal Med - H&P Results - Labs CBC & Chem 7: 05/07/19 18:31 05/07/19 18:31 Labs: Short CBC 05/07/19 Range/Units 18:31 WBC 11.4 H (4.3-11.1) K/mcL Hgb 14.9 (12.9-16.9) g/dL Hct 43.9 (37.5-50.1) % Plt Count 208 (140-400) K/mcL Neutrophils # 5.7 (1.6-8.9) K/mcL BMP 05/07/19 18:31 Sodium 137 Potassium 3.8 Chloride 104 Carbon Dioxide 22 L BUN 19 Creatinine 1.24 Glucose 103 Calcium 9.9 Cardiac Enzymes 05/07/19 05/08/19 Range/Units 18:31 00:26 Troponin I < 0.03 < 0.03 (< 0.04) ng/mL - Impressions ITS Impressions Chest X-Ray 05/07/19 18:20 IMPRESSION: No evidence of acute cardiopulmonary process. Suggestion of a trace amount right pleural fluid versus scarring. This appears unchanged D/ / Pipo Valdez MD / Pipo Valdez MD Interpreting Provider: Pipo Valdez MD - Assessment and Plan (1) Chest pain Current Visit: Yes Status: Acute Assessment and plan: Continuous cardiac monitoring. Initial troponin negative, serial troponins ordered. Allergy to nitro, morphine ordered prn for pain. Cardiology called by ER, consult order placed. NPO. Qualifiers: Chest pain type: unspecified Qualified Code(s): R07.9 - Chest pain, unspecified (2) Increased white blood cell count Current Visit: Yes Status: Acute Assessment and plan: Slightly increased at 11.4 No signs of infection. Repeat labs ordered. Qualifiers: Leukocytosis type: unspecified Qualified Code(s): D72.829 - Elevated white blood cell count, unspecified (3) Decreased GFR Current Visit: Yes Status: Acute Assessment and plan: Slightly decreased at 59. Repeat labs ordered. (4) Hypertension Current Visit: Yes Status: Chronic Assessment and plan: Continue home medications once verified. Qualifiers: Hypertension type: unspecified Qualified Code(s): I10 - Essential (primary) hypertension (5) Depression Current Visit: Yes Status: Chronic Assessment and plan: Continue home medications once verified. Qualifiers: Depression Type: unspecified Qualified Code(s): F32.9 - Major depressive disorder, single episode, unspecified - Time Spent With Patient Total time spent is greater than 50% in coordination of care (as documented) at patient's floor/unit and/or counseling patient:
[2019-05-08] MEDS: *HR* Heparin 5,000 UNIT/ML VIAL SQ SCH ×2 (05:48→17:59)
[2019-05-08 07:20] LABS: Hematocrit 42.2 % (37.5-50.1); Hemoglobin 14.2 g/dL (12.9-16.9); Mean Corpuscular HGB Conc 33.6 g/dL (31.6-35.5); Mean Corpuscular Hemoglobin 32.5 pg (28.0-33.3); Mean Corpuscular Volume 96.6 fL (83.0-100.0); Mean Platelet Volume 9.5 fL (9.4-12.4); Platelet Count 197 K/mcL (140-400); Red Blood Count 4.37 M/mcL (4.19-5.50); Red Cell Distribution Width 13.1 % (11.5-14.5); White Blood Count 11.3 K/mcL (4.3-11.1)
[2019-05-08 07:44] LABS: BUN/Creatinine Ratio 18 (6-26); Blood Urea Nitrogen 21 mg/dL (8-23); Calcium 9.3 mg/dL (8.6-10.3); Carbon Dioxide 21 mEq/L (23-29); Chloride 102 mEq/L (98-107); Glucose 104 mg/dL (70-105); Osmolality,Calculated 285 (280-300); Potassium 4.1 mEq/L (3.5-5.1); Sodium 136 mEq/L (136-145); eGFR For African Americans > 60 (> 60); eGFR For Non-African Americans > 60 (> 60)
[2019-05-08 08:00] LABS: Lymphocytes # 3.2 K/mcL (0.6-4.6); Monocytes # 0.7 K/mcL (0.0-1.3); Neutrophils # 7.5 K/mcL (1.6-8.9)
[2019-05-08 08:01] LABS: Platelet Estimate Normal (Normal)
--- NOTE | 2019-05-08 10:41 | Cardiology Consult Note ---
<AnumOj almanza Heath - Last Filed: 05/08/19 11:43> Date of Encounter: 05/08/19 Time of Encounter: 10:40 Assessment and Plan (1) Chest pain Current Visit: Yes Status: Acute Per Cardiology: Has history of chronic chest pain. Troponins negative 3. Discussed and reviewed with Dr. Mujica, will check limited echo. Recommend increasing long-acting nitrate-- already done today per primary. Will resume home medications of aspirin, statin, and Ranexa. Patient agreeable to plan. All questions answered. Qualifiers: Chest pain type: unspecified Qualified Code(s): R07.9 - Chest pain, unspe cified (2) CAD (coronary artery disease) Current Visit: No Status: Chronic Per Cardiology: Known history of CAD with reported 17 stents. Recent stenting in December 2018 and again in January 2019. Catheterization from January 2018 patient underwent drug-eluting stent to OM1 70% lesion and showed mid RCA 30% and right PDA 60% lesions. Echo from December 2017 EF 60-65%. Qualifiers: Coronary Disease-Associated Artery/Lesion type: [place] artery [place] vs. transplanted heart: [place] heart Associated angina: with unstable angina Qu alified Code(s): I25.110 - Atherosclerotic heart disease of [place] coronary artery with unstable angina pectoris Discussion w patient/family: The assessment and plan as outlined above was discussed with the patient and/or family members who expressed understanding and agreement. All questions were answered. Thank you for involving us in the care of your patient. Please call with any questions. History of Present Illness Consult date: 05/08/19 Consult reason: CP Chief complaint: CP History of present illness: Previous medical history reviewed: "Mr. Bingham is a 63 year old male with past medical history significant for CAD with stents x17, [place] x3, pacemaker, CVA, TIA, gerd, hypertension, hyperlipidemia, migraine, and depression who presents for complaints of intermittent chest pain over past two days getting progressively worse described as someone sitting on his chest. Pain is rated at 10/10 at its worst and radiates to the right side of his chest and into his back. Pain is intermittent lasting around five minutes. Pain is associated with shortness of breath, nausea, vomiting, and diaphoresis". Cardiology consult for chest pain. 4th Cardiology C/S this year. Patient reports his normal state of health up until yesterday. He indicates his midsternal chest squeezing sensations pressure started increasing in frequency, duration, and intensity. He reports 10 separate episodes yesterday with longest lasting about 15 minutes. He denied any other accompanying symptomatology other than some shortness of breath with these events. He reports compliance with medication regimen and has not missed any medications. He reports past intolerance to SL nitroglycerin pills. Reports some mild relief with IV morphine. Initially denied chest pain upon evaluation, however developed midsternal chest squeezing about 7 out of 10 during exam but eventually subsided. He denies any active bleeding or blood loss. Denies any acute infectious process. Past Med Surg Social Fam HX - Past Medical History Attestation: Yes The following information was validated with the patient. Source: patient, old records reviewed Medical history: coronary artery disease, CVA, GERD, hyperlipidemia, hypertension, migraine, myocardial infarction, TIA Additional medical history: 17 cardiac stents. Pacemaker. Hemaplegic migraines Psychiatric history: depression - Past Surgical History Surgical History: orthopedic, other, pacemaker/AICD Additional surgical history: Left rotator cuff repair, 17 stents placed - Social History Smoking Status: Never smoker Smokeless Tobacco Status: No Alcohol use: none Drug use: marijuana - Family History Father Family Member Ethnicity: Non- Living Status: Hx Family Cardiac Disorders: Yes ([place]) Hx Family Neurologic Disorders: Yes (Alzheimers) Mother Family Member Ethnicity: Non- Living Status: Hx Family Cardiac Disorders: Yes (mother,fATHER,sister) Hx Family Respiratory Disorders: Yes (mother) Hx Family Cancer: No Hx Family GI Disorders: No Hx Family Endocrine Disorder: No Hx Family Neuromuscular Disorders: No Hx Family Neurologic Disorders: Yes (self) Hx Family HEENT Disorders: No Hx Family Autoimmune Disorders: No Brother Family Member Ethnicity: Non- Living Status: Hx Family Cardiac Disorders: Yes (AIDS) Sister Family Member Ethnicity: Non- Living Status: Still Living Hx Family Cardiac Disorders: Yes (HTN) Medications and Allergies Finasteride [Proscar] 5 mg PO DAILY 08/14/18 [History] Gabapentin [Neurontin] 600 mg PO TID 08/14/18 [History] Pantoprazole Sodium [Protonix] 40 mg PO QPM 08/14/18 [History] Ranolazine [Ranexa] 1,000 mg PO BID 08/14/18 [History] Tamsulosin [Flomax] 0.4 mg PO DAILY 08/14/18 [History] Vitamin E 1,000 unit PO DAILY 08/14/18 [History] lamoTRIgine [Lamictal] 100 mg PO BID 08/14/18 [History] Atorvastatin [Lipitor] 80 mg PO HS 30 Days #30 tablet 08/19/18 [Rx] Clopidogrel [Plavix] 75 mg PO DAILY 01/24/19 [History] Diltiazem [Cardizem] 30 mg PO BID 01/24/19 [History] Tizanidine HCl 4 mg PO BID PRN 01/24/19 [History] Acetaminophen [Tylenol] 975 mg PO QPM 03/03/19 [History] Aspirin [Adult Aspirin Regimen] 81 mg PO DAILY 03/03/19 [History] Cholecalciferol (Vitamin D3) [Vitamin D3] 6,000 unit PO DAILY 03/03/19 [History] Escitalopram [Lexapro] 20 mg PO DAILY 03/03/19 [History] Isosorbide MONOnitrate (24 HR) [Imdur] 120 mg PO DAILY #60 tab.er.24h 03/05/19 [Rx] Metoprolol XL (24 HR) Succ [Toprol Xl] 50 mg PO DAILY #30 tab.er.24h 03/05/19 [Rx] Allergy/AdvReac Type Severity Reaction Status Date / Time hydrochlorothiazide Allergy Vomiting Verified 05/07/19 18:33 nitroglycerin Allergy Vomiting Verified 05/07/19 18:33 sumatriptan [From Imitrex] Allergy Anaphylaxis Verified 05/07/19 18:33 All Systems Review: The remainder of the systems were reviewed and are negative - Cardiovascular Cardiovascular: as per HPI, chest pain at rest, dyspnea at rest Physical Examination Vital Signs, Last 4 Hours Temp Pulse Resp BP Pulse Ox 05/08/19 06:53 97.6 F 60 16 114/77 97 General: Conversant, No Apparent Distress HEENT: Atraumatic, Normocephaly, Mucus Membranes Moist Neck: No JVD, Normal carotid pulses Cardiac: Reg Rate and Rhythm, Normal S1 and S2, No Murmur Lungs: Normal Breath Sounds, No Wheeze, Rales, Rhonchi Neuro: Alert and responsive, No focal deficits noted Abdomen: Soft, Non-Tender Skin: No rashes noted on visualized skin Musculoskeletal: No Chest Wall Tenderness Extremities: No Clubbing, No Cyanosis, No Edema, Normal Pulses Results 05/08/19 06:52 05/08/19 06:52 Lab Results Laboratory Tests 05/07/19 05/08/19 05/08/19 18:31 00:26 06:52 Hgb Hct Creatinine 1.17 Est GFR (Non-Af Amer) > 60 Troponin I < 0.03 < 0.03 05/08/19 05/08/19 06:52 06:52 Hgb 14.2 Hct 42.2 Creatinine Est GFR (Non-Af Amer) Troponin I < 0.03 ITS Impressions Chest X-Ray 05/07/19 18:20 IMPRESSION: No evidence of acute cardiopulmonary process. Suggestion of a trace amount right pleural fluid versus scarring. This appears unchanged D/ / Pipo Valdez MD / Pipo Valdez MD Interpreting Provider: Pipo Valdez MD Active Medications Heparin Sodium (Porcine) (Heparin) 5,000 unit SQ Q12HCO REBECCA Stop: 11/07/19 06:01 Last Admin: 05/08/19 05:48 Dose: Not Given Documented by: Morphine Sulfate (Morphine Sulfate) 2 mg IVP Q6HR PRN; Protocol PRN Reason: Chest Pain Stop: 11/07/19 01:57 Last Admin: 05/08/19 08:32 Dose: 2 mg Documented by: Naloxone HCl (Narcan) 0.4 mg IVP Q2MPRN PRN PRN Reason: SEE COMMENTS Stop: 11/07/19 01:59 - Imaging and Cardiology Echo: pending, report reviewed (12/2018: Impressions: LVEF 60-65%. Normal LV chamber size and systolic function. Mild concentric left ventricular hypertrophy. Atypical septal motion consistent with paced rhythm. A device lead was visualized in the right atrium and right ventricle. Left Ventricular Wall Motion: Rest Echo Findings All wall segments showed normal motion.) Cardiac cath: report reviewed - EKG Interpretation EKG results cardiology: personally reviewed, sinus rhythm, right bundle branch block Consult Discharge Plan - Plan Referrals: Louisa Hendrickson MD [Primary Care Provider] - <Enrico Mujica A - Last Filed: 05/08/19 15:15> Date of Encounter: 05/08/19 - Attending Attestation I have personally performed a face to face evaluation on this patient. I have reviewed and agree with the documented findings and care plan as documented by the FILLING HAND. History and Exam by me shows: 63-year-old male with history of CAD and multiple stents. Admitted for atypical chest pain. I agree with increasing Imdur, continue Ranexa at maximum dose, beta kourtney, aspirin, Plavix, statin. Obtain limited echo to check ejection fraction and wall motion Enrico Nath MD [facility] Assessment and Plan Discussion w patient/family: The assessment and plan as outlined above was discussed with the patient and/or family members who expressed understanding and agreement. All questions were answered. Thank you for involving us in the care of your patient. Please call with any questions. History of Present Illness History of present illness: Mr. Bingham is a 63 year old male All Systems Review: The remainder of the systems were reviewed and are negative Physical Examination Vital Signs, Last 4 Hours Temp Pulse Resp BP Pulse Ox 05/08/19 11:29 97.4 F L 63 16 148/96 97 Results 05/08/19 06:52 05/08/19 06:52 Lab Results 05/07/19 05/07/19 05/08/19 18:31 18:31 00:26 WBC 11.4 H Hgb 14.9 Hct 43.9 Plt Count 208 Sodium 137 Potassium 3.8 Chloride 104 Carbon Dioxide 22 L BUN 19 Creatinine 1.24 Glucose 103 Calcium 9.9 Troponin I < 0.03 < 0.03 05/08/19 05/08/19 05/08/19 06:52 06:52 06:52 WBC 11.3 H Hgb 14.2 Hct 42.2 Plt Count 197 Sodium 136 Potassium 4.1 Chloride 102 Carbon Dioxide 21 L BUN 21 Creatinine 1.17 Glucose 104 Calcium 9.3 Troponin I < 0.03
[2019-05-08] MEDS ORDERED: tiZANidine 4 MG TABLET PO PRN (11:44)
--- NOTE | 2019-05-08 12:41 | Internal Med Progress Note ---
Hospitalist Progress Note - Encounter Date of Encounter: 05/08/19 Time of Encounter: 09:10 - Subjective Interval History: When seen today patient was resting comfortably in his bed. He does admit to still having constant chest pain that fluctuates in severity. He denies any nausea or vomiting. Denies any fever. Denies any swelling of his lower extrem ities. Denies any shortness of breath. - Exam Vitals: Temp Pulse Resp BP Pulse Ox 97.4 F L 63 16 148/96 97 05/08/19 11:05/08/19 11:05/08/19 11:05/08/19 11:05/08/19 11:29 Exam: GENERAL APPEARANCE: Well developed, well nourished, alert and cooperative, and appears to be in no acute distress. HEAD: normocephalic. EYES: vision is grossly intact. EARS: hearing grossly intact. NOSE: No nasal discharge. CARDIAC: Normal S1 and S2. No S3, S4 or murmurs. Rhythm is regular. There is no peripheral edema, cyanosis or pallor. Extremities are warm and well perfused. Capillary refill is less than 2 seconds. No carotid bruits. LUNGS: Clear to auscultation and percussion without rales, rhonchi, wheezing or diminished breath sounds. ABDOMEN: Positive bowel sounds. Soft, nondistended, nontender. No guarding or rebound. No masses. MUSKULOSKELETAL: Adequately aligned spine. ROM intact spine and extremities. No joint erythema or tenderness. Normal muscular development. BACK: Examination of the spine reveals normal gait and posture, no spinal deformity, symmetry of spinal muscles, without tenderness, decreased range of motion or muscular spasm. EXTREMITIES: No significant deformity or joint abnormality. No edema. Peripheral pulses intact. No varicosities. LOWER EXTREMITY: Examination of both feet reveals all toes to be normal in size and symmetry, normal range of motion, normal sensation with distal capillary filling of less than 2 seconds without tenderness, swelling, discoloration, nodules, weakness or deformity. SKIN: Skin normal color, texture and turgor with no lesions or eruptions. PSYCHIATRIC: The mental examination revealed the patient was oriented to person, place, and time. - Assessment and Plan (1) Chest pain Current Visit: Yes Status: Acute Assessment and Plan: History of previous NM with placement of pacemaker/AICD and x17 stents. Troponins negative x 3. Last echocardiogram back in 12/2018 which showed an EF of 60-65% with mild LVH and mild LV diastolic dysfunction. Continues to c/o constant chest pain. Does not appear to be in acute distress. Cardiology is on board. Plan: - Increase long-acting nitrate. - Resume home meds: ASA, statin, and Ranexa. - Echocardiogram. - Telemetry monitoring. (2) CAD (coronary artery disease) Current Visit: No Status: Chronic Assessment and Plan: PMH of CAD with x17 stents. Recent stenting in December 2018 and again in January 2019. Catheterization from January 2018 patient underwent drug-eluting stent. Echo from December 2017 EF 60-65%. Plan: - Resume home medications: ASA, plavix, statin, and Ranexa. (3) Hypertension Current Visit: Yes Status: Chronic Assessment and Plan: BP controlled. Plan: - Resume home meds: Toprol and cardizem. (4) Depression Current Visit: Yes Status: Chronic Assessment and Plan: Stable. Plan: - Resume home meds: lamictal and lexapro. (5) GERD (gastroesophageal reflux disease) Current Visit: No Status: Chronic Assessment and Plan: C/W PPI. DVT Prophylaxis: - Heparin SubQ. - Time Spent with Patient Total time spent is greater than 50% in coordination of care (as documented) at patient's floor/unit and/or counseling patient: Internal Medicine: Result - Labs CBC & Chem 7: 05/08/19 06:52 05/08/19 06:52 Labs: Short CBC 05/07/19 05/08/19 Range/Units 18:31 06:52 WBC 11.4 H 11.3 H (4.3-11.1) K/mcL Hgb 14.9 14.2 (12.9-16.9) g/dL Hct 43.9 42.2 (37.5-50.1) % Plt Count 208 197 (140-400) K/mcL Neutrophils # 5.7 7.5 (1.6-8.9) K/mcL BMP 05/07/19 05/08/19 18:31 06:52 Sodium 137 136 Potassium 3.8 4.1 Chloride 104 102 Carbon Dioxide 22 L 21 L BUN 19 21 Creatinine 1.24 1.17 Glucose 103 104 Calcium 9.9 9.3 Cardiac Enzymes 05/07/19 05/08/19 05/08/19 Range/Units 18:31 00:26 06:52 Troponin I < 0.03 < 0.03 < 0.03 (< 0.04) ng/mL - Impressions Impressions Chest X-Ray 05/07/19 18:20 IMPRESSION: No evidence of acute cardiopulmonary process. Suggestion of a trace amount right pleural fluid versus scarring. This appears unchanged D/ / Pipo Valdez MD / Pipo Valdez MD Interpreting Provider: Pipo Valdez MD Consult Discharge Plan - Plan Referrals: Louisa Hendrickson MD [Primary Care Provider] - (1) Chest pain Qualifiers: Chest pain type: unspecified Qualified Code(s): R07.9 - Chest pain, unspecified (2) CAD (coronary artery disease) Qualifiers: Coronary Disease-Associated Artery/Lesion type: [place] artery [place] vs. transplanted heart: [place] heart Associated angina: with unstable angina Qualified Code(s): I25.110 - Atherosclerotic heart disease of [place] coronary artery with unstable angina pectoris (3) Hypertension Qualifiers: Hypertension type: unspecified Qualified Code(s): I10 - Essential (primary) hypertension (4) Depression Qualifiers: Depression Type: unspecified Qualified Code(s): F32.9 - Major depressive disorder, single episode, unspecified (5) GERD (gastroesophageal reflux disease) Qualifiers: Esophagitis presence: esophagitis presence not specified Qualified Code(s): K21.9 - Gastro-esophageal reflux disease without esophagitis
[2019-05-08] MEDS: Ranolazine 500 MG TAB.ER.12H PO SCH ×2 (12:47→20:48)
[2019-05-08] MEDS: Aspirin Enteric Coated 81 MG Tablet PO SCH (12:47)
[2019-05-08] MEDS: Isosorbide MONOnitrate (24 HR) 30 MG TAB.ER.24H PO SCH (12:47)
[2019-05-08] MEDS: Gabapentin 300 MG CAPSULE PO SCH ×2 (14:41→20:48)
[2019-05-08] MEDS ORDERED: Acetaminophen 325 MG TABLET PO SCH (18:00)
[2019-05-08] MEDS: lamoTRIgine 100 MG TABLET PO SCH (20:47)
[2019-05-08] MEDS ORDERED: NON-FORMULARY MEDICATION 1 EACH EACH (Ranolazine [Ranexa] 1,000 MG) PO SCH (21:00)
[2019-05-09 01:21] LABS: Hematocrit 43.2 % (37.5-50.1); Hemoglobin 14.5 g/dL (12.9-16.9); Mean Corpuscular HGB Conc 33.6 g/dL (31.6-35.5); Mean Corpuscular Hemoglobin 33.4 pg (28.0-33.3); Mean Corpuscular Volume 99.5 fL (83.0-100.0); Mean Platelet Volume 9.6 fL (9.4-12.4); Platelet Count 217 K/mcL (140-400); Red Blood Count 4.34 M/mcL (4.19-5.50); Red Cell Distribution Width 12.9 % (11.5-14.5); White Blood Count 13.1 K/mcL (4.3-11.1)
[2019-05-09] MEDS: Morphine Sulfate 2 MG/ML SYRINGE IVP PRN ×2 (03:00→09:32)
[2019-05-09] MEDS: *HR* Heparin 5,000 UNIT/ML VIAL SQ SCH (05:29)
[2019-05-09 07:11] VITALS: BP 112/68
[2019-05-09] MEDS ORDERED: Finasteride 5 MG TABLET PO SCH (09:00)
[2019-05-09] MEDS ORDERED: Metoprolol XL (24 HR) Succ 50 MG TAB.ER.24H PO SCH (09:00)
[2019-05-09] MEDS ORDERED: Isosorbide MONOnitrate (24 HR) 60 MG TAB.ER.24H PO SCH (09:00)
[2019-05-09] MEDS: Aspirin Enteric Coated 81 MG Tablet PO SCH (09:32)
[2019-05-09] MEDS: lamoTRIgine 100 MG TABLET PO SCH (09:32)
[2019-05-09] MEDS: Gabapentin 300 MG CAPSULE PO SCH (09:32)
[2019-05-09] MEDS: Isosorbide MONOnitrate (24 HR) 30 MG TAB.ER.24H PO SCH (09:33)
[2019-05-09] MEDS: Ranolazine 500 MG TAB.ER.12H PO SCH (09:33)
--- NOTE | 2019-05-09 09:57 | Cardiology Progress Note ---
Date of Encounter: 05/09/19 Time of Encounter: 08:30 Assessment and Plan (1) Chest pain Current Visit: Yes Status: Acute Per Cardiology: Has history of chronic chest pain. Troponins negative 3. Echo: Impressions: LVEF 65%. Mild concentric left ventricular hypertrophy. No segmental dysfunction. Left Ventricular Wall Motion: Rest Echo Findings All wall segments showed normal motion. No further inpatient cardiac workup warranted. Cardiology signing off, reconsult needed, follow-up arranged. Discussed with Dr. Mujica. Qualifiers: Chest pain type: unspecified Qualified Code(s): R07.9 - Chest pain, unspecified (2) CAD (coronary artery disease) Current Visit: No Status: Chronic Per Cardiology: Known history of CAD with reported 17 stents. Recent stenting in December 2018 and again in January 2019. Catheterization from January 2018 patient underwent drug-eluting stent to OM1 70% lesion and showed mid RCA 30% and right PDA 60% lesions. On aspirin, statin, Ranexa, Imdur, plavix, BB. Qualifiers: Coronary Disease-Associated Artery/Lesion type: lummi artery [place] vs. transplanted heart: lummi heart Associated angina: with unstable angina Qualified Code(s): I25.110 - Atherosclerotic heart disease of lummi coronary artery with unstable angina pectoris Discussion w patient/family: The assessment and plan as outlined above was discussed with the patient and/or family members who expressed understanding and agreement. All questions were a nswered. Thank you for involving us in the care of your patient. Please call with any questions. Subjective Principal diagnosis: CP Interval history: Patient denies any new concerns or complaints. Currently chest pain-free. Reports slight overall improvement in symptoms. Objective Vital Signs, Last 4 Hours Temp Pulse Resp BP Pulse Ox 05/09/19 07:07 97.5 F L 72 16 112/68 97 General: Conversant, No Apparent Distress HEENT: Atraumatic, Normocephaly, Mucus Membranes Moist Neck: No JVD, Normal carotid pulses Cardiac: Reg Rate and Rhythm, Normal S1 and S2, No Murmur Lungs: Normal Breath Sounds, No Wheeze, Rales, Rhonchi Neuro: Alert and responsive, No focal deficits noted Abdomen: Soft, Non-Tender Skin: No rashes noted on visualized skin Musculoskeletal: No Chest Wall Tenderness Extremities: No Clubbing, No Cyanosis, No Edema, Normal Pulses Results 05/09/19 00:36 05/08/19 06:52 Lab Results 05/09/19 00:36 WBC 13.1 H Hgb 14.5 Hct 43.2 Plt Count 217 - Imaging and Cardiology Echo: report reviewed Consult Discharge Plan - Plan Referrals: Louisa Hendrickson MD [Primary Care Provider] - (Unable to schedule appointment. Please call Friday to schedule hospital follow up appointment in 7- 10 days from date of discharge. )
--- NOTE | 2019-05-09 10:21 | Discharge Summary ---
<Reyes Ramirez - Last Filed: 05/09/19 10:19> Orders not resulted at time of discharge: Pending orders 05/07/19 18:20 ECG 12 lead ECG [ECG] Stat Date of Encounter: 05/09/19 Time of Encounter: 09:20 - Discharge Diagnosis (1) Chest pain Priority: Primary Status: Acute Qualifiers: Chest pain type: unspecified Qualified Code(s): R07.9 - Chest pain, uns pecified (2) CAD (coronary artery disease) Priority: Primary Status: Chronic Qualifiers: Coronary Disease-Associated Artery/Lesion type: [place] artery [place] vs. transplanted heart: comanche heart Associated angina: with unstable angina Qualified Code(s): I25.110 - Atherosclerotic heart disease of [place] coronary artery with unstable angina pectoris (3) Hypertension Priority: Secondary Status: Chronic Qualifiers: Hypertension type: unspecified Qualified Code(s): I10 - Essential (primary) hypertension (4) Depression Priority: Secondary Status: Chronic Qualifiers: Depression Type: unspecified Qualified Code(s): F32.9 - Major depressive disorder, single episode, unspecified (5) GERD (gastroesophageal reflux disease) Priority: Secondary Status: Chronic Qualifiers: Esophagitis presence: esophagitis presence not specified Qualified Code(s): K21.9 - Gastro-esophageal reflux disease without esophagitis Hospital course: Mr. Bingham is a 63 year old male with past medical history significant for CAD with stents x17, [place] x3, pacemaker, CVA, TIA, gerd, hypertension, hyperlipidemia, migraine, and depression who presented for complaints of intermittent chest pain over past two days getting progressively worse. EKG showed right bundle branch block unchanged from prior EKG with no acute ST elevation or arrythmia. Chest xray showed no evidence of acute cardiopulmonary process and suggestion of a trace amount right pleural fluid versus scarring that remains unchanged. Patient recently had cardiac catheterization in January 2019 and had his 17th stent placed. Was also recently admitted to [facility] 03/03/19 - 03/06/19 for chest pain and had his Imdur increased at that time. ER called contact lens technician cardiology who requested for patient to be admitted to medicine for further evaluation. Troponin levels were negative x 3. Echocardiogram showed an EF of 65% with mild LV hypertrophy. When seen today, patient still continues to complain of intermittent chest pain although he says the Imdur does help with th e pain. He denies any SOB. Denies any fever. Denies any cough or wheezing. Denies abdominal pain, nausea, or vomiting. Patient was resting comfortably in his bed this morning and did not appear to be in any acute distress. He will be discharged home today, but he will need to follow-up with cardiology and his PCP in the next week. - Time Spent with Patient Total time spent providing and/or coordinating discharge services: Time spent: Greater than 30 minutes - Discharge Medications Prescriptions: Continued Pantoprazole Sodium [Protonix] 40 mg PO QPM Tamsulosin [Flomax] 0.4 mg PO DAILY Ranolazine [Ranexa] 1,000 mg PO BID lamoTRIgine [Lamictal] 100 mg PO BID Gabapentin [Neurontin] 600 mg PO TID Finasteride [Proscar] 5 mg PO DAILY Vitamin E 1,000 unit PO DAILY Atorvastatin [Lipitor] 80 mg PO HS 30 Days #30 tablet Clopidogrel [Plavix] 75 mg PO DAILY Tizanidine HCl 4 mg PO BID PRN PRN Reason: MUSCLE SPASMS Diltiazem [Cardizem] 30 mg PO BID Aspirin [Adult Aspirin Regimen] 81 mg PO DAILY Cholecalciferol (Vitamin D3) [Vitamin D3] 6,000 unit PO DAILY Escitalopram [Lexapro] 20 mg PO DAILY Acetaminophen [Tylenol] 975 mg PO QPM Isosorbide MONOnitrate (24 HR) [Imdur] 120 mg PO DAILY #60 tab.er.24h Metoprolol XL (24 HR) Succ [Toprol Xl] 50 mg PO DAILY #30 tab.er.24h Home Medications: Finasteride [Proscar] 5 mg PO DAILY 08/14/18 [History] Gabapentin [Neurontin] 600 mg PO TID 08/14/18 [History] Pantoprazole Sodium [Protonix] 40 mg PO QPM 08/14/18 [History] Ranolazine [Ranexa] 1,000 mg PO BID 08/14/18 [History] Tamsulosin [Flomax] 0.4 mg PO DAILY 08/14/18 [History] Vitamin E 1,000 unit PO DAILY 08/14/18 [History] lamoTRIgine [Lamictal] 100 mg PO BID 08/14/18 [History] Atorvastatin [Lipitor] 80 mg PO HS 30 Days #30 tablet 08/19/18 [Rx] Clopidogrel [Plavix] 75 mg PO DAILY 01/24/19 [History] Diltiazem [Cardizem] 30 mg PO BID 01/24/19 [History] Tizanidine HCl 4 mg PO BID PRN 01/24/19 [History] Acetaminophen [Tylenol] 975 mg PO QPM 03/03/19 [History] Aspirin [Adult Aspirin Regimen] 81 mg PO DAILY 03/03/19 [History] Cholecalciferol (Vitamin D3) [Vitamin D3] 6,000 unit PO DAILY 03/03/19 [History] Escitalopram [Lexapro] 20 mg PO DAILY 03/03/19 [History] Isosorbide MONOnitrate (24 HR) [Imdur] 120 mg PO DAILY #60 tab.er.24h 03/05/19 [Rx] Metoprolol XL (24 HR) Succ [Toprol Xl] 50 mg PO DAILY #30 tab.er.24h 03/05/19 [Rx] Allergies/Adverse Reactions: Allergy/AdvReac Type Severity Reaction Status Date / Time hydrochlorothiazide Allergy Vomiting Verified 05/07/19 18:33 nitroglycerin Allergy Vomiting Verified 05/07/19 18:33 sumatriptan [From Imitrex] Allergy Anaphylaxis Verified 05/07/19 18:33 Date of admission: 05/07/19 20:23 Primary care physician: Louisa Hendrickson MD Consults: 05/08/19 02:00 Consult to Cardiology [CONS] Routine Comment: Consulting Provider: [facility] Reason for Consult: Presents for intermittent chest pain getting progressively worse over past two days. Follows regularly with [facility]. History of CAD with stents x17, with most recent in January 2019. ER spoke with Dr Mujica who re commended admission to medicine service. Call Completed: Yes Discharging clinician: Reyes Ramirez Anticipated date of discharge: 05/09/19 - Constitutional Vitals: Temp Pulse Resp BP Pulse Ox 97.5 F L 72 16 112/68 97 05/09/19 07:07 05/09/19 07:07 05/09/19 07:07 05/09/19 07:07 05/09/19 07:07 Exam: GENERAL APPEARANCE: Well developed, well nourished, alert and cooperative, and appears to be in no acute distress. HEAD: normocephalic. EYES: vision is grossly intact. EARS: hearing grossly intact. NOSE: No nasal discharge. CARDIAC: Normal S1 and S2. No S3, S4 or murmurs. Rhythm is regular. There is no peripheral edema, cyanosis or pallor. Extremities are warm and well perfused. Capillary refill is less than 2 seconds. No carotid bruits. LUNGS: Clear to auscultation and percussion without rales, rhonchi, wheezing or diminished breath sounds. ABDOMEN: Positive bowel sounds. Soft, nondistended, nontender. No guarding or rebound. No masses. MUSKULOSKELETAL: Adequately aligned spine. ROM intact spine and extremities. No joint erythema or tenderness. Normal muscular development. BACK: Examination of the spine reveals normal gait and posture, no spinal deformity, symmetry of spinal muscles, without tenderness, decreased range of motion or muscular spasm. EXTREMITIES: No significant deformity or joint abnormality. No edema. Peripheral pulses intact. No varicosities. LOWER EXTREMITY: Examination of both feet reveals all toes to be normal in size and symmetry, normal range of motion, normal sensation with distal capillary filling of less than 2 seconds without tenderness, swelling, discoloration, n odules, weakness or deformity. SKIN: Skin normal color, texture and turgor with no lesions or eruptions. PSYCHIATRIC: The mental examination revealed the patient was oriented to person, place, and time. - Patient Status Disposition: Home, Self-Care Condition: Fair Functional capacity at discharge: independent ambulation Overall status at discharge: patient is progressing back to baseline - Discharge Instructions Instructions: Chest Pain (DC) Follow Up With: Louisa eHndrickson MD [Primary Care Provider] - (Unable to schedule appointment. Please call Friday to schedule hospital follow up appointment in 7- 10 days from date of discharge. ) Enrico Mujica MD [Non-Partnered Physician] - (Appt has been requested. ) - Diet and Activity Activity: increase activity as tolerated Diet: low fat, low cholesterol, low salt diet <Kevin Luque - Last Filed: 05/09/19 13:25> Orders not resulted at time of discharge: Pending orders 05/07/19 18:20 ECG 12 lead ECG [ECG] Stat Date of Encounter: 05/09/19 - Discharge Diagnosis (1) CAD (coronary artery disease) Status: Chronic Qualifiers: Coronary Disease-Associated Artery/Lesion type: [place] artery [place] vs. transplanted heart: [place] heart Associated angina: with other forms of angina Qualified Code(s): I25.118 - Atherosclerotic heart disease of [place] coronary artery with other forms of angina pectoris (2) Chest pain Status: Suspected Qualifiers: Chest pain type: chest pain due to myocardial ischemia Ischemic chest pain type: other angina pectoris type Qualified Code(s): I20.8 - Other forms of angina pectoris (3) Increased white blood cell count Priority: Secondary Status: Acute Qualifiers: Leukocytosis type: unspecified Qualified Code(s): D72.829 - Elevated white blood cell count, unspecified (4) Hypertension Status: Chronic Qualifiers: Hypertension type: essential hypertension Qualified Code(s): I10 - Essential (primary) hypertension (5) Depression Status: Chronic Qualifiers: Depression Type: unspecified Qualified Code(s): F32.9 - Major depressive disorder, single episode, unspecified (6) HLD (hyperlipidemia) Priority: Secondary Status: Chronic Qualifiers: Hyperlipidemia type: mixed hyperlipidemia Qualified Code(s): E78.2 - Mixed hyperlipidemia (7) BPH (benign prostatic hyperplasia) Priority: Secondary Status: Chronic Qualifiers: Lower urinary tract symptom presence: symptoms absent Qualified Code(s): N40.0 - Benign prostatic hyperplasia without lower urinary tract symptoms Hospital course: Mr. Bingham is a 63 year old male - Time Spent with Patient Total time spent providing and/or coordinating discharge services: 36min Date of admission: 05/07/19 20:23 Primary care physician: Louisa Hendrickson MD Consults: 05/08/19 02:00 Consult to Cardiology [CONS] Routine Comment: Consulting Provider: [facility] Reason for Consult: Presents for intermittent chest pain getting progressively worse over past two days. Follows regularly with [facility]. History of CAD with stents x17, with most recent in January 2019. ER spoke with Dr Mujica who recommended admission to medicine service. Call Completed: Yes - Constitutional Vitals: Temp Pulse Resp BP Pulse Ox 97.5 F L 72 16 112/68 97 05/09/19 07:07 05/09/19 07:07 05/09/19 07:07 05/09/19 07:07 05/09/19 07:07 - Attending Attestation I examined this patient and my medical decision-making was reviewed with the Resident Physician on 05/09/19. I agree with the documented findings, disposit ion and treatment plan as described except to the extent set forth below. Mr Bingham has been in observation for chest pain. He has been evaluated by cardiology and Imdur was increased. His WBC is increased but he has no sign of infection - no fever or any symptoms. CXR negative. He is ready for discharge home and follow up with PCP and have labs rechecked.
--- NOTE | 2019-05-11 09:46 | Electrocardiograph Report ---
[facility] [employer] Test Date: 2019-05-07 Pat Name: Av Bingham Department: 104 Room: 3B36 Gender: M Flow Coordinator: Yazmin : 1955 Requested By: Clifton Arauz Order Number: [id number] Reading MD: Brad Lechuga Measurements Intervals [place] Rate: 89 P: 8 NC: 162 QRS: 7 QRSD: 127 T: 11 QT: 388 QTc: 435 Interpretive Statements SINUS RHYTHM RIGHT BUNDLE BRANCH BLOCK Electronically Signed On 05-11-2019 9:44:42 EDT by Brad Lechuga
--- NOTE | 2019-05-11 09:47 | Electrocardiograph Report ---
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
== END 2019-05-09 13:43 | disposition home or self-care (01) ==
LOC: 3BNU 18:11 → EMEROOARM 18:11 → SUATTDRO 20:23 → 3BNU 21:01
PROVIDERS: ADMIT Pediatrics; ATTEND Internal Medicine

== ENCOUNTER 2019-07-18 22:08 | Inpatient (IN) ==
[2019-07-18] MEDS ORDERED: Ondansetron ODT 4 MG TAB.RAPDIS SL ONE (22:39)
[2019-07-18] MEDS ORDERED: Acetaminophen 325 MG TABLET PO ONE (22:41)
[2019-07-18] MEDS ORDERED: Morphine Sulfate 2 MG/ML SYRINGE IVP ONE (23:01)
--- NOTE | 2019-07-18 23:01 | Emergency Department Note ---
Disposition Clinical Impression: Chest pain Disposition: Admitted As Inpatient Condition: Good Referrals: NONE,PCP [Non-Partnered Physician] - Forms: ED Satisfaction Letter Time of Disposition: 00:02 General Adult HPI - General Chief complaint: ED Chest Pain Stated complaint: Midsternal Chest Pain / Pacer Chirping Time Seen by Provider: 07/18/19 22:23 Source: patient Limitations: no limitations Nursing Notes Reviewed: Yes Vital Signs Reviewed: Yes - History of Present Illness HPI Narrative: Mr. Bingham is a 64yo male with a hx of CAD with 17 stents that presents with substernal and jim-pacemaker pain that began while patient was resting around 5pm. Patient describes the pain as sharp, non-radiating without alleviating factors. Patient states that the pain feels different from previous MIs. Patient called cardiology office and they referred him here for a more complete workup. Patient also nauseas with some vomiting. No shortness of breath or recent sick contacts. Pain Scale: 9 - Related Data Home Medications Medication Instructions Recorded Confirmed Finasteride [Proscar] 5 mg PO DAILY 08/14/18 03/03/19 Gabapentin [Neurontin] 600 mg PO TID 08/14/18 03/03/19 Pantoprazole Sodium [Protonix] 40 mg PO QPM 08/14/18 03/03/19 Ranolazine [Ranexa] 1,000 mg PO BID 08/14/18 03/03/19 Tamsulosin [Flomax] 0.4 mg PO DAILY 08/14/18 03/03/19 Vitamin E 1,000 unit PO DAILY 08/14/18 03/03/19 lamoTRIgine [Lamictal] 100 mg PO BID 08/14/18 03/03/19 Clopidogrel [Plavix] 75 mg PO DAILY 01/24/19 03/03/19 Diltiazem [Cardizem] 30 mg PO BID 01/24/19 03/03/19 Tizanidine HCl 4 mg PO BID PRN 01/24/19 03/03/19 Acetaminophen [Tylenol] 975 mg PO QPM 03/03/19 03/03/19 Aspirin [Adult Aspirin Regimen] 81 mg PO DAILY 03/03/19 03/09/19 Cholecalciferol (Vitamin D3) 6,000 unit PO DAILY 03/03/19 03/09/19 [Vitamin D3] Escitalopram [Lexapro] 20 mg PO DAILY 03/03/19 03/09/19 Previous Rx's Medication Instructions Recorded Atorvastatin [Lipitor] 80 mg PO HS 30 Days #30 tablet 08/19/18 Isosorbide MONOnitrate (24 HR) 120 mg PO DAILY #60 tab.er.24h 03/05/19 [Imdur] Metoprolol XL (24 HR) Succ [Toprol 50 mg PO DAILY #30 tab.er.24h 03/05/19 Xl] Allergies Allergy/AdvReac Type Severity Reaction Status Date / Time hydrochlorothiazide Allergy Vomiting Verified 07/18/19 22:17 nitroglycerin Allergy Vomiting Verified 07/18/19 22:17 sumatriptan [From Imitrex] Allergy Anaphylaxis Verified 07/18/19 22:17 Constitutional: Denies: fever, chills Cardiovascular: Reports: chest pain. Denies: palpitations, dyspnea on exertion, syncope Respiratory: Denies: dyspnea, wheezes Gastrointestinal: Reports: nausea, vomiting. Denies: abdominal pain Genitourinary: Denies: urgency, dysuria Musculoskeletal: Denies: back pain, neck pain Neurological: Denies: headache Past Medical History - Past Medical History Medical history: Reports: coronary artery disease, CVA, GERD, hyperlipidemia, hypertension, migraine, myocardial infarction, TIA Surgical history: Reports: orthopedic, other, pacemaker/AICD Psychiatric history: Reports: depression - Social History Smoking Status: Never smoker Smokeless Tobacco Status: No Alcohol use: Reports: none Drug use: Reports: marijuana Physical Exam - General Limitations: no limitations General appearance: alert - Head Head exam: atraumatic, normocephalic - Eye Eye exam: Present: PERRL, EOMI - ENT ENT exam: mucous membranes moist - Neck Neck exam: Present: normal inspection, full ROM - Chest Chest inspection: Present: symmetric chest wall rise, tenderness - Respiratory Respiratory exam: Absent: respiratory distress, wheezes - Cardiovascular Cardiovascular exam: Present: regular rate, normal rhythm - Abdominal Exam Abdominal exam: Present: soft, Non-Tender - Neurological Exam Neurological exam: Present: alert, oriented X3 - Psychiatric Psychiatric exam: Present: normal affect Course Vital Signs Temperature 98.4 F 07/18/19 22:18 Pulse Rate 81 07/18/19 22:18 Respiratory Rate 20 07/18/19 22:18 Blood Pressure 189/116 07/18/19 22:18 O2 Sat by Pulse Oximetry 99 07/18/19 22:18 Temperature 98.4 F 07/18/19 22:18 Pulse Rate 81 07/18/19 22:18 Respiratory Rate 20 07/18/19 22:18 Blood Pressure 189/116 07/18/19 22:18 O2 Sat by Pulse Oximetry 99 07/18/19 22:18 Oxygen Delivery Oxygen Delivery Room Air Medical Decision Making - MDM Narrative Medical decision making narrative: Given patient's cardiac history, full cardiac workup including CXR, EKG, Troponins and basic labs will be performed. Consideration for CTA for underlying vascular pathology such as PE or Aortic dissection/aneurysm. Pending results, patient will likely be admitted for further cardiac workup. - Lab Data Result diagrams: 07/18/19 22:51 07/18/19 22:51 Lab Results 07/18/19 07/18/19 Range/Units 22:51 22:51 WBC 19.6 H (4.3-11.1) K/mcL RBC 4.31 (4.19-5.50) M/mcL Hgb 14.2 (12.9-16.9) g/dL Hct 41.5 (37.5-50.1) % MCV 96.3 (83.0-100.0) fL MCH 32.9 (28.0-33.3) pg MCHC 34.2 (31.6-35.5) g/dL RDW 13.1 (11.5-14.5) % Plt Count 215 (140-400) K/mcL MPV 9.2 L (9.4-12.4) fL Immature Gran % 20.2 H (0-4) % Seg Neutrophils % 47.7 % Lymphocytes % 16.6 % Monocytes % 14.3 % Eosinophils % 0.5 % Basophils % 0.7 % Neutrophils # 9.4 H (1.6-8.9) K/mcL Lymphocytes # 3.3 (0.6-4.6) K/mcL Monocytes # 2.8 H (0.0-1.3) K/mcL Eosinophils # 0.1 (0.0-0.6) K/mcL Basophils # 0.1 (0.0-0.2) K/mcL Platelet Estimate Normal (Normal) Sodium 138 (136-145) mEq/L Potassium 3.6 (3.5-5.1) mEq/L Chloride 107 (98-107) mEq/L Carbon Dioxide 20 L (23-29) mEq/L BUN 15 (8-23) mg/dL Creatinine 1.16 (0.70-1.30) mg/dL Est GFR ( Amer) > 60 (> 60) Est GFR (Non-Af Amer) > 60 (> 60) BUN/Creatinine Ratio 13 (6-26) Glucose 101 (70-105) mg/dL Calculated Osmolality 287 (280-300) Calcium 8.8 (8.6-10.3) mg/dL Magnesium 1.8 (1.6-2.6) mg/dL Troponin I < 0.03 (< 0.04) ng/mL
[2019-07-18 23:09] LABS: Basophils # 0.1 K/mcL (0.0-0.2); Basophils % 0.7 %; Eosinophils # 0.1 K/mcL (0.0-0.6); Eosinophils % 0.5 %; Hematocrit 41.5 % (37.5-50.1); Hemoglobin 14.2 g/dL (12.9-16.9); Immature Granulocytes % 20.2 % (0-4); Lymphocytes # 3.3 K/mcL (0.6-4.6); Lymphocytes % 16.6 %; Mean Corpuscular HGB Conc 34.2 g/dL (31.6-35.5); Mean Corpuscular Hemoglobin 32.9 pg (28.0-33.3); Mean Corpuscular Volume 96.3 fL (83.0-100.0); Mean Platelet Volume 9.2 fL (9.4-12.4); Monocytes # 2.8 K/mcL (0.0-1.3); Monocytes % 14.3 %; Neutrophils # 9.4 K/mcL (1.6-8.9); Platelet Count 215 K/mcL (140-400); Red Blood Count 4.31 M/mcL (4.19-5.50); Red Cell Distribution Width 13.1 % (11.5-14.5); Segmented Neutrophils % 47.7 %; White Blood Count 19.6 K/mcL (4.3-11.1)
--- NOTE | 2019-07-18 23:18 | Emergency Department Note ---
Disposition Clinical Impression: Chest pain Qualifiers: Chest pain type: unspecified Qualified Code(s): R07.9 - Chest pain, unspecified Leukocytosis Qualifiers: Leukocytosis type: unspecified Qualified Code(s): D72.829 - Elevated white blood cell count, unspecified Disposition: Still a Patient Referrals: NONE,PCP [Non-Partnered Physician] - Forms: ED Satisfaction Letter Time of Disposition: 00:25 Chest Pain HPI - General Chief Complaint: ED Chest Pain Stated Complaint: Midsternal Chest Pain / Pacer Chirping Time Seen by Provider: 07/18/19 22:23 Source: patient Mode of arrival: ambulatory Limitations: no limitations Vital Signs Reviewed: Yes Nursing Notes Reviewed: Yes - History of Present Illness HPI Narrative: I have re-performed and reviewed the history documented by the medical student, and I confirm its accuracy except as noted below Pt has a history of CAD with 17 stents, last being in January of this year. Patient is on maximum medical management for his chest pain. Patient states that this chest pain feels different than his previous heart attacks except for his "one big one" which felt exactly like this. He states he is allergic to nitroglycerin as it causes projectile vomiting. He states that he has been given morphine in the past which had good effect for his chest pain. Patient denies fever, chills, cough, abdominal pain, other symptoms at this time. Severity scale (1-10): 9 - Related Data Home Medications Medication Instructions Recorded Confirmed Finasteride [Proscar] 5 mg PO DAILY 08/14/18 03/03/19 Gabapentin [Neurontin] 600 mg PO TID 08/14/18 03/03/19 Pantoprazole Sodium [Protonix] 40 mg PO QPM 08/14/18 03/03/19 Ranolazine [Ranexa] 1,000 mg PO BID 08/14/18 03/03/19 Tamsulosin [Flomax] 0.4 mg PO DAILY 08/14/18 03/03/19 Vitamin E 1,000 unit PO DAILY 08/14/18 03/03/19 lamoTRIgine [Lamictal] 100 mg PO BID 08/14/18 03/03/19 Clopidogrel [Plavix] 75 mg PO DAILY 01/24/19 03/03/19 Diltiazem [Cardizem] 30 mg PO BID 01/24/19 03/03/19 Tizanidine HCl 4 mg PO BID PRN 01/24/19 03/03/19 Acetaminophen [Tylenol] 975 mg PO QPM 03/03/19 03/03/19 Aspirin [Adult Aspirin Regimen] 81 mg PO DAILY 03/03/19 03/09/19 Cholecalciferol (Vitamin D3) 6,000 unit PO DAILY 03/03/19 03/09/19 [Vitamin D3] Escitalopram [Lexapro] 20 mg PO DAILY 03/03/19 03/09/19 Previous Rx's Medication Instructions Recorded Atorvastatin [Lipitor] 80 mg PO HS 30 Days #30 tablet 08/19/18 Isosorbide MONOnitrate (24 HR) 120 mg PO DAILY #60 tab.er.24h 03/05/19 [Imdur] Metoprolol XL (24 HR) Succ [Toprol 50 mg PO DAILY #30 tab.er.24h 03/05/19 Xl] Allergies Allergy/AdvReac Type Severity Reaction Status Date / Time hydrochlorothiazide Allergy Vomiting Verified 07/18/19 22:17 nitroglycerin Allergy Vomiting Verified 07/18/19 22:17 sumatriptan [From Imitrex] Allergy Anaphylaxis Verified 07/18/19 22:17 All systems ED: reviewed and negative except as stated. Review of Systems: As Per HPI Constitutional: Denies: fever, chills Cardiovascular: Reports: chest pain. Denies: palpitations, dyspnea on exertion, syncope Respiratory: Denies: cough, dyspnea, wheezes Gastrointestinal: Reports: nausea, vomiting. Denies: abdominal pain Genitourinary: Denies: urgency, dysuria Musculoskeletal: Denies: back pain, neck pain Neurological: Denies: headache Chest Pain PMH - Past Medical History Medical history: Reports: coronary artery disease, CVA, GERD, hyperlipidemia, hypertension, migraine, myocardial infarction, TIA Surgical history: Reports: orthopedic, other, pacemaker/AICD Psychiatric history: Reports: depression - Social History Smoking Status: Never smoker Alcohol use: Reports: none Drug use: Reports: marijuana Physical Exam - General Limitations: no limitations General appearance: alert, in no apparent distress - Head Head exam: atraumatic, normocephalic - Eye Eye exam: Present: normal appearance, EOMI - Chest Chest inspection: Present: tenderness (tenderness to palpation of sternum) - Respiratory Respiratory exam: Present: normal lung sounds bilaterally. Absent: wheezes - Cardiovascular Cardiovascular exam: Present: regular rate, normal rhythm - Abdominal Exam Abdominal exam: Present: soft, Non-Tender. Absent: distention, guarding, rebound, rigidity - Extremities Exam Extremities exam: Present: normal inspection. Absent: tenderness, pedal edema - Neurological Exam Neurological exam: Present: alert, oriented X3 - Psychiatric Psychiatric exam: Present: normal affect, normal mood - Skin Skin exam: Present: warm, dry, intact Course Vital Signs Temperature 98.4 F 07/18/19 22:18 Pulse Rate 81 07/18/19 22:18 Respiratory Rate 20 07/18/19 22:18 Blood Pressure 189/116 07/18/19 22:18 O2 Sat by Pulse Oximetry 99 07/18/19 22:18 Temperature 98.4 F 07/18/19 22:18 Pulse Rate 81 07/18/19 22:18 Respiratory Rate 20 07/18/19 22:18 Blood Pressure 189/116 07/18/19 22:18 O2 Sat by Pulse Oximetry 99 07/18/19 22:18 Oxygen Delivery Oxygen Delivery Room Air Chest Pain - MDM Narrative Medical decision making narrative: Patient was significant cardiac disease presents emergency Department with sudden onset of chest pain started at rest. He has significant risk factors for worsening cardiac disease, therefore we will obtain a cardiac workup and plan on admission for the patient for further cardiac workup. 2345 - patient's lab work is back and is significant for an elevated white count of 19,000. EKG is unchanged from previous. Chest x-ray did not show any significant abnormalities. Patient is still experiencing severe chest pain. We will do a CTA of his chest to look for pneumonia, PE, dissection and possible Boerhaave's as the patient has been vomiting. 0023 - patient is back from CT and is still complaining of some chest pain. We will administer fentanyl and aspirin. Spoke with the admitting hospitalist Dr. Suarez about this patient who states he will likely suffer the patient pending the CTA radiate. This patient will be signed out to the night team of Dr. Caldwell and Dr. Betancur to alert Dr. Suarez once this read is up. - Medical Records Medical records reviewed: Yes I reviewed the patient's medical records. - Lab Data Lab results reviewed: Yes I reviewed the patient's lab results. Result diagrams: 07/18/19 22:51 07/18/19 22:51 Lab Results 07/18/19 07/18/19 Range/Units 22:51 22:51 WBC 19.6 H (4.3-11.1) K/mcL RBC 4.31 (4.19-5.50) M/mcL Hgb 14.2 (12.9-16.9) g/dL Hct 41.5 (37.5-50.1) % MCV 96.3 (83.0-100.0) fL MCH 32.9 (28.0-33.3) pg MCHC 34.2 (31.6-35.5) g/dL RDW 13.1 (11.5-14.5) % Plt Count 215 (140-400) K/mcL MPV 9.2 L (9.4-12.4) fL Immature Gran % 20.2 H (0-4) % Seg Neutrophils % 47.7 % Lymphocytes % 16.6 % Monocytes % 14.3 % Eosinophils % 0.5 % Basophils % 0.7 % Neutrophils # 9.4 H (1.6-8.9) K/mcL Lymphocytes # 3.3 (0.6-4.6) K/mcL Monocytes # 2.8 H (0.0-1.3) K/mcL Eosinophils # 0.1 (0.0-0.6) K/mcL Basophils # 0.1 (0.0-0.2) K/mcL Platelet Estimate Normal (Normal) Sodium 138 (136-145) mEq/L Potassium 3.6 (3.5-5.1) mEq/L Chloride 107 (98-107) mEq/L Carbon Dioxide 20 L (23-29) mEq/L BUN 15 (8-23) mg/dL Creatinine 1.16 (0.70-1.30) mg/dL Est GFR ( Amer) > 60 (> 60) Est GFR (Non-Af Amer) > 60 (> 60) BUN/Creatinine Ratio 13 (6-26) Glucose 101 (70-105) mg/dL Calculated Osmolality 287 (280-300) Calcium 8.8 (8.6-10.3) mg/dL Magnesium 1.8 (1.6-2.6) mg/dL Troponin I < 0.03 (< 0.04) ng/mL - Radiology Data Radiology results reviewed: Yes I reviewed the patient's radiology results. - EKG Data EKG attestation: Yes I reviewed and interpreted this EKG. EKG results narrative: EKG obtained at 2214 on 07/18/2019 Heart rate 70 bpm, MI interval 156, QRS duration 133, QT 417, QTC 450 Sinus rhythm with right bundle branch block. No signs of significant ST segment elevations or depressions. No other acute T-wave abnormalities. No significant changes when compared to previous EKG dated 05/07/2019 Repeat EKG obtained at 2301 on 07/18/2019 during an episode of the patient's chest pain Sinus rhythm at 85 bpm with no changes from previous EKG. Heart Score - Score History: Moderately Suspicious EKG: Non Specific repolarisation Disturbance Age: 45-65 Risk Factors: Equal/Greater than 3 risk factor or history of atherosclerotic disease Troponin: Less than normal limit HEART Score Total: 5
--- NOTE | 2019-07-18 23:19 | Emergency Department Note ---
Disposition Clinical Impression: Chest pain Qualifiers: Chest pain type: unspecified Qualified Code(s): R07.9 - Chest pain, unspecified Leukocytosis Qualifiers: Leukocytosis type: unspecified Qualified Code(s): D72.829 - Elevated white blood cell count, unspecified Disposition: Admitted As Inpatient Referrals: NONE,PCP [Non-Partnered Physician] - Forms: ED Satisfaction Letter Time of Disposition: 00:27 General Adult HPI - General Chief complaint: ED Chest Pain Stated complaint: Midsternal Chest Pain / Pacer Chirping Time Seen by Provider: 07/18/19 22:23 Source: patient Limitations: no limitations Nursing Notes Reviewed: Yes Vital Signs Reviewed: Yes - History of Present Illness Pain Scale: 9 - Related Data Home Medications Medication Instructions Recorded Confirmed Finasteride [Proscar] 5 mg PO DAILY 08/14/18 03/03/19 Gabapentin [Neurontin] 600 mg PO TID 08/14/18 03/03/19 Pantoprazole Sodium [Protonix] 40 mg PO QPM 08/14/18 03/03/19 Ranolazine [Ranexa] 1,000 mg PO BID 08/14/18 03/03/19 Tamsulosin [Flomax] 0.4 mg PO DAILY 08/14/18 03/03/19 Vitamin E 1,000 unit PO DAILY 08/14/18 03/03/19 lamoTRIgine [Lamictal] 100 mg PO BID 08/14/18 03/03/19 Clopidogrel [Plavix] 75 mg PO DAILY 01/24/19 03/03/19 Diltiazem [Cardizem] 30 mg PO BID 01/24/19 03/03/19 Tizanidine HCl 4 mg PO BID PRN 01/24/19 03/03/19 Acetaminophen [Tylenol] 975 mg PO QPM 03/03/19 03/03/19 Aspirin [Adult Aspirin Regimen] 81 mg PO DAILY 03/03/19 03/09/19 Cholecalciferol (Vitamin D3) 6,000 unit PO DAILY 03/03/19 03/09/19 [Vitamin D3] Escitalopram [Lexapro] 20 mg PO DAILY 03/03/19 03/09/19 Previous Rx's Medication Instructions Recorded Atorvastatin [Lipitor] 80 mg PO HS 30 Days #30 tablet 08/19/18 Isosorbide MONOnitrate (24 HR) 120 mg PO DAILY #60 tab.er.24h 03/05/19 [Imdur] Metoprolol XL (24 HR) Succ [Toprol 50 mg PO DAILY #30 tab.er.24h 03/05/19 Xl] Allergies Allergy/AdvReac Type Severity Reaction Status Date / Time hydrochlorothiazide Allergy Vomiting Verified 07/18/19 22:17 nitroglycerin Allergy Vomiting Verified 07/18/19 22:17 sumatriptan [From Imitrex] Allergy Anaphylaxis Verified 07/18/19 22:17 Constitutional: Denies: fever, chills Cardiovascular: Reports: chest pain. Denies: palpitations, dyspnea on exertion, syncope Respiratory: Denies: dyspnea, wheezes Gastrointestinal: Reports: nausea, vomiting. Denies: abdominal pain Genitourinary: Denies: urgency, dysuria Musculoskeletal: Denies: back pain, neck pain Neurological: Denies: headache Past Medical History - Past Medical History Medical history: Reports: coronary artery disease, CVA, GERD, hyperlipidemia, hypertension, migraine, myocardial infarction, TIA Surgical history: Reports: orthopedic, other, pacemaker/AICD Psychiatric history: Reports: depression - Social History Smoking Status: Never smoker Smokeless Tobacco Status: No Alcohol use: Reports: none Drug use: Reports: marijuana Physical Exam - General Limitations: no limitations General appearance: alert Course Vital Signs Temperature 98.4 F 07/18/19 22:18 Pulse Rate 81 07/18/19 22:18 Respiratory Rate 20 07/18/19 22:18 Blood Pressure 189/116 07/18/19 22:18 O2 Sat by Pulse Oximetry 99 07/18/19 22:18 Temperature 98.4 F 07/18/19 22:18 Pulse Rate 81 07/18/19 22:18 Respiratory Rate 20 07/18/19 22:18 Blood Pressure 189/116 07/18/19 22:18 O2 Sat by Pulse Oximetry 99 07/18/19 22:18 Oxygen Delivery Oxygen Delivery Room Air Medical Decision Making - Lab Data Result diagrams: 07/18/19 22:51 07/18/19 22:51 Lab Results 07/18/19 07/18/19 Range/Units 22:51 22:51 WBC 19.6 H (4.3-11.1) K/mcL RBC 4.31 (4.19-5.50) M/mcL Hgb 14.2 (12.9-16.9) g/dL Hct 41.5 (37.5-50.1) % MCV 96.3 (83.0-100.0) fL MCH 32.9 (28.0-33.3) pg MCHC 34.2 (31.6-35.5) g/dL RDW 13.1 (11.5-14.5) % Plt Count 215 (140-400) K/mcL MPV 9.2 L (9.4-12.4) fL Immature Gran % 20.2 H (0-4) % Seg Neutrophils % 47.7 % Lymphocytes % 16.6 % Monocytes % 14.3 % Eosinophils % 0.5 % Basophils % 0.7 % Neutrophils # 9.4 H (1.6-8.9) K/mcL Lymphocytes # 3.3 (0.6-4.6) K/mcL Monocytes # 2.8 H (0.0-1.3) K/mcL Eosinophils # 0.1 (0.0-0.6) K/mcL Basophils # 0.1 (0.0-0.2) K/mcL Platelet Estimate Normal (Normal) Sodium 138 (136-145) mEq/L Potassium 3.6 (3.5-5.1) mEq/L Chloride 107 (98-107) mEq/L Carbon Dioxide 20 L (23-29) mEq/L BUN 15 (8-23) mg/dL Creatinine 1.16 (0.70-1.30) mg/dL Est GFR ( Amer) > 60 (> 60) Est GFR (Non-Af Amer) > 60 (> 60) BUN/Creatinine Ratio 13 (6-26) Glucose 101 (70-105) mg/dL Calculated Osmolality 287 (280-300) Calcium 8.8 (8.6-10.3) mg/dL Magnesium 1.8 (1.6-2.6) mg/dL Troponin I < 0.03 (< 0.04) ng/mL Attestation Statement - Attestation Attestation: I examined this patient and my medical decision-making was reviewed with the Resident Physician. I agree with the documented findings, disposition and treatment plan as described except to the extent set forth below. Patient to the ED with a chief complaint of chest pain. Sharp pain substernally and under his pacemaker. Onset about 5 PM tonight. Patient has extensive cardiac history going multiple stent placements. On examination he appears uncomfortable. 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 Lungs clear. Heart regular. No pedal edema. Plan. Cardiac workup. Patient has had a repeat EKG. They are unchanged from his baseline. EKG reviewed with the resident. Patient continues to have pain after morphine. He has a nitroglycerin allergy. We will treat him with fentanyl. His cardiac workup is unremarkable thus far. He does have a leukocytosis from an unknown cause. We will check a CTA chest. We will admit to hospitalist.
[2019-07-18 23:30] LABS: BUN/Creatinine Ratio 13 (6-26); Blood Urea Nitrogen 15 mg/dL (8-23); Calcium 8.8 mg/dL (8.6-10.3); Carbon Dioxide 20 mEq/L (23-29); Chloride 107 mEq/L (98-107); Glucose 101 mg/dL (70-105); Magnesium 1.8 mg/dL (1.6-2.6); Osmolality,Calculated 287 (280-300); Potassium 3.6 mEq/L (3.5-5.1); Sodium 138 mEq/L (136-145); eGFR For African Americans > 60 (> 60); eGFR For Non-African Americans > 60 (> 60)
[2019-07-18 23:32] LABS: Troponin I < 0.03 ng/mL (< 0.04)
[2019-07-18 23:37] LABS: Platelet Estimate Normal (Normal)
[2019-07-18] MEDS ORDERED: Isovue-370 500 ML BOTTLE IVP ONE (23:45)
[2019-07-19] MEDS ORDERED: *HR* FentaNYL (PF) 100 MCG/2 ML VIAL IVP ONE (00:08)
[2019-07-19] MEDS ORDERED: Aspirin 81 MG TAB.CHEW PO ONE (00:19)
--- NOTE | 2019-07-19 01:00 | Internal Med History&Physical ---
<Ginny Wynne - Last Filed: 07/19/19 02:56> Date of Encounter: 07/19/19 Time of Encounter: 01:00 Internal Medicine - H&P: HPI Chief complaint: Chest pain Admitted From: Emergency Dept Plans for Post Hospital Care: Home History of present illness: Mr. Bingham is a 64 year old male with a past medical history of CAD, CVA, [place], Gerd, hypertension, pacemaker/AICD who presented to [facility] complaining of chest pa in. He reported that it started around 5 o'clock this evening while at rest. He noticed a sharp stabbing pain in retrosternal region of his chest and below his pacemaker. Pain last seconds to 1 minute. Nothing exacerbated the pain. Morphine has improved the pain. Additionally his noted chirping noise from his pacemaker. He called his softlines supervisor Dr. Aquino whom told him to go to the ED. He has never had chest pain that this before. Additionally he had 2 episodes of vomiting. He is adamant that he has been compliant with his cardiac medications including aspirin and Plavix. He has night sweats for 13 years. He noticed 5 pound weight lost in 2 days. He denied fever, chills, malaise, shortness of breath, abdominal pain, diarrhea, dysuria. He significant family history of cardiac disease of [place] and mother and father. No history of cancer. He denied smoking, alcohol, drug use. He has a full code. In the ED initial vitals were: 98.4F, HR 81, RR 20, BP 189/116, SpO2 99% on r oom air. WBC 19.6, hemoglobin 14.2, platelets 215. BMP unremarkable. Troponin <0.03, magnesium 1.8. Chest x-ray showed no acute cardiopulmonary process. -Chest CTA should no PE or acute pulmonary abnormality. -In the ED the patient was given aspirin, fentanyl, morphine, Zofran, acetaminophen. -Known history of CAD with reported 17 stents. He had stent placement in December 2018 and January 2019. 01/25/2019 [facility]: severe one vessel CAD with PTCA/ drug eluting stent placement in the 1st proximal. -05/08/2019 limited TTE: EF 65%, no segmental dysfunction. Past Med Surg Social Fam HX - Past Medical History Attestation: Yes The following information was validated with the patient. Source: patient Medical history: coronary artery disease, CVA, GERD, hyperlipidemia, hypertensi on, migraine, myocardial infarction, TIA Additional medical history: 17 cardiac stents. Pacemaker. Hemaplegic migraines Psychiatric history: depression - Past Surgical History Surgical History: orthopedic, other, pacemaker/AICD Additional surgical history: Left rotator cuff repair, 17 stents placed - Social History Smoking Status: Never smoker Smokeless Tobacco Status: No Alcohol use: none Drug use: marijuana - Family History Father Family Member Ethnicity: Non- Living Status: Hx Family Cardiac Disorders: Yes ([place]) Hx Family Neurologic Disorders: Yes (Alzheimers) Mother Family Member Ethnicity: Non- Living Status: Hx Family Cardiac Disorders: Yes (mother,fATHER,sister) Hx Family Respiratory Disorders: Yes (mother) Hx Family Cancer: No Hx Family GI Disorders: No Hx Family Endocrine Disorder: No Hx Family Neuromuscular Disorders: No Hx Family Neurologic Disorders: Yes (self) Hx Family HEENT Disorders: No Hx Family Autoimmune Disorders: No Brother Family Member Ethnicity: Non- Living Status: Hx Family Cardiac Disorders: Yes (AIDS) Sister Family Member Ethnicity: Non- Living Status: Still Living Hx Family Cardiac Disorders: Yes (HTN) Internal Medicine - H&P: Meds Finasteride [Proscar] 5 mg PO DAILY 08/14/18 [History] Gabapentin [Neurontin] 600 mg PO TID 08/14/18 [History] Pantoprazole Sodium [Protonix] 40 mg PO QPM 08/14/18 [History] Ranolazine [Ranexa] 1,000 mg PO BID 08/14/18 [History] Tamsulosin [Flomax] 0.4 mg PO DAILY 08/14/18 [History] Vitamin E 1,000 unit PO DAILY 08/14/18 [History] lamoTRIgine [Lamictal] 100 mg PO BID 08/14/18 [History] Atorvastatin [Lipitor] 80 mg PO HS 30 Days #30 tablet 08/19/18 [Rx] Clopidogrel [Plavix] 75 mg PO DAILY 01/24/19 [History] Diltiazem [Cardizem] 30 mg PO DAILY 01/24/19 [History] Tizanidine HCl 4 mg PO BID PRN 01/24/19 [History] Acetaminophen [Tylenol] 1,000 mg PO QPM 03/03/19 [History] Aspirin [Adult Aspirin Regimen] 81 mg PO DAILY 03/03/19 [History] Cholecalciferol (Vitamin D3) [Vitamin D3] 6,000 unit PO DAILY 03/03/19 [History] Escitalopram [Lexapro] 20 mg PO DAILY 03/03/19 [History] Metoprolol XL (24 HR) Succ [Toprol Xl] 50 mg PO DAILY #30 tab.er.24h 03/05/19 [Rx] Allergy/AdvReac Type Severity Reaction Status Date / Time hydrochlorothiazide Allergy Vomiting Verified 07/18/19 22:17 nitroglycerin Allergy Vomiting Verified 07/18/19 22:17 sumatriptan [From Imitrex] Allergy Anaphylaxis Verified 07/18/19 22:17 All Systems PM: A 10-system review of systems was performed and is negative for pertinent findings except as documented above in the HPI. - Constitutional Constitutional: night sweats, weight loss (5lbs ), no anorexia, no chills, no fever(s), no malaise, no weakness - EENT Eyes: no blurry vision, no change in vision Nose, mouth and throat: no sinus pain, no sinus pressure - Cardiovascular Cardiovascular ROS IM: chest pain, no diaphoresis, no edema, no lightheadedness, no palpitations, no syncope - Constitutional Vitals: Temp Pulse Resp BP Pulse Ox 98.4 F 65 25 155/96 99 07/18/19 22:18 07/19/19 00:51 07/19/19 00:51 07/19/19 00:51 07/18/19 22:18 Exam: Gen.: Vitals noted. No acute distress. AAOx3 HEENT: oropharynx clear, Normocephalic, atraumatic Cardiac: RRR, no murmur, +S1/S2, pacemaker present Pulmonary: CTA bilaterally, no wheezes, rales or rhonchi, equal chest expansion Abdomen: soft, nontender, Bowel sounds noted, no guarding MSK: ROM intact, no joint swelling noted, tender lymphadenopathy and bilateral axilla and left inguinal region Extremities: no BLE edema, nontender calf, no cyanosis or clubbing Neuro: A&Ox3, moves all extremities, no focal deficits Psych: Appropriate mood and behavior Internal Med - H&P Results - Labs CBC & Chem 7: 07/18/19 22:51 07/18/19 22:51 Labs: Short CBC 07/18/19 Range/Units 22:51 WBC 19.6 H (4.3-11.1) K/mcL Hgb 14.2 (12.9-16.9) g/dL Hct 41.5 (37.5-50.1) % Plt Count 215 (140-400) K/mcL Neutrophils # 9.4 H (1.6-8.9) K/mcL BMP 07/18/19 22:51 Sodium 138 Potassium 3.6 Chloride 107 Carbon Dioxide 20 L BUN 15 Creatinine 1.16 Glucose 101 Calcium 8.8 Cardiac Enzymes 07/18/19 Range/Units 22:51 Troponin I < 0.03 (< 0.04) ng/mL - Impressions ITS Impressions Chest X-Ray 07/18/19 22:39 IMPRESSION: No acute cardiopulmonary disease. D/ / Adiel Mendiola MD / Adiel Mendiola MD Interpreting Provider: Adiel Mendiola MD Chest CTA 07/19/19 00:00 IMPRESSION: No evidence of pulmonary embolism or acute pulmonary abnormality. D/ / Fransisco Calhoun MD / Fransisco Calhoun MD Interpreting Provider: Fransisco Calhoun MD - Assessment and Plan (1) Unstable angina Current Visit: No Status: Acute Assessment and plan: Patient with unstable angina. Reported sharp stabbing retrosternal and below pacemaker chest pain at rest. Lasting seconds to [id number]-minute. No exacerbating factors. Improved with morphine. Occurs every hour. In the ED the patient was given aspirin, fentanyl, morphine, Zofran, acetaminophen. Patient was adamant about being compliant with his aspirin and Plavix. He believes that his pacemaker is chirping. On palpation of the pacemaker area he was initially not tender under the pacemaker site however, patient then he did say that he was tender?? -Etiology for unstable angina is unclear however due to a significant cardiac history and ADRIEN score will start heparin drip. EKG and troponin to not indicate ACS. He reported sudden stabbing like chest pain near pacemaker and chirping sound? -Known history of CAD with reported 17 stents. He has stent placement in December 2018 and January 2019. -Troponin <0.03 -EKG showing NSR, HR 70, no ST or T wave changes indicating ischemia. Right bundle branch block. Similar to previous EKG. -Chest x-ray showed no acute cardiopulmonary process. -Chest CTA showed no PE or acute pulmonary abnormality. -ADRIEN score: 4 -05/08/2019 limited TTE: EF 65%, no segmental dysfunction. -01/25/2019 [facility]: severe one vessel CAD with PTCA/ drug eluting stent placement in the 1st proximal. plan: -consult cardiology as the patient has significant cardiac history and evaluate pacemaker as he believes it is chirping and has pain below it. -Heparin drip started -trend toponin -Continue home medications of Toprol, diltiazem, Plavix, aspirin, atorvastatin -cardiac telemetry (2) Increased white blood cell count Current Visit: Yes Status: Acute Assessment and plan: Patient has elevated WBC 19.6 on admission. Patient has night sweats for 13 years. He reported 5 pound weight loss in 2 days. He denies any recent illness, fever, chills, shortness of breath, abdominal pain, diarrhea, dysuria. No family history of cancer. -Etiology is unclear for elevated WBC -Afebrile, hemodynamically stable -no obvious source of infection -patient did have tender lymphadenopathy and bilateral axilla and left inguinal region Plan -Will order a peripheral blood smear -will not given antibiotics at this time is there is no obvious source of infection Qualifiers: Leukocytosis type: unspecified Qualified Code(s): D72.829 - Elevated white blood cell count, unspecified (3) CAD (coronary artery disease) Current Visit: No Status: Chronic Assessment and plan: Known history of CAD with reported 17 stents. He is stent placement in December 2018 and January 2019. He is the patient of Dr. Aquino. -Continue home medications of Toprol, diltiazem, Plavix, aspirin, atorvastatin Qualifiers: Coronary Disease-Associated Artery/Lesion type: [place] artery [place] vs. transplanted heart: [place] heart Associated angina: with other forms of angina Qualified Code(s): I25.118 - Atherosclerotic heart disease of [place] coronary artery with other forms of angina pectoris (4) HTN (hypertension) Current Visit: No Status: Chronic Assessment and plan: Patient with history of hypertension taking Toprol, diltiazem -continue home medications Qualifiers: Hypertension type: essential hypertension Qualified Code(s): I10 - Essential (primary) hypertension (5) History of CVA (cerebrovascular accident) Current Visit: No Status: Resolved Assessment and plan: Patient with history of CVA. Taking aspirin and Plavix. continue home medications (6) DVT prophylaxis Current Visit: No Status: Acute Assessment and plan: On heparin drip (7) Chest pain Current Visit: Yes Status: Acute Assessment and plan: Chest pain that is unstable angina most likely. Pain below pacemaker but tende rness is questionable; no erythema. No PE. ACS is not represented by troponin or EKG at this time. -Chest x-ray showed no acute cardiopulmonary process. -Chest CTA showed no PE or acute pulmonary abnormality. -Plan as above Qualifiers: Chest pain type: unspecified Qualified Code(s): R07.9 - Chest pain, unspecified - Time Spent With Patient Total time spent is greater than 50% in coordination of care (as documented) at patient's floor/unit and/or counseling patient: <Elli Suarez - Last Filed: 07/19/19 04:27> Date of Encounter: 07/19/19 Internal Medicine - H&P: HPI History of present illness: Mr. Bingham is a 64 year old male All Systems PM: A 10-system review of systems was performed and is negative for pertinent findings except as documented above in the HPI. - Constitutional Vitals: Temp Pulse Resp BP Pulse Ox 98.6 F 70 19 174/107 96 07/19/19 01:19 07/19/19 01:19 07/19/19 01:19 07/19/19 01:19 07/19/19 01:19 Internal Med - H&P Results - Labs CBC & Chem 7: 07/19/19 03:09 07/18/19 22:51 Labs: Short CBC 07/18/19 07/19/19 Range/Units 22:51 03:09 WBC 19.6 H 19.1 H (4.3-11.1) K/mcL Hgb 14.2 14.3 (12.9-16.9) g/dL Hct 41.5 42.0 (37.5-50.1) % Plt Count 215 223 (140-400) K/mcL Neutrophils # 9.4 H (1.6-8.9) K/mcL BMP 07/18/19 22:51 Sodium 138 Potassium 3.6 Chloride 107 Carbon Dioxide 20 L BUN 15 Creatinine 1.16 Glucose 101 Calcium 8.8 Cardiac Enzymes 07/18/19 Range/Units 22:51 Troponin I < 0.03 (< 0.04) ng/mL - Impressions ITS Impressions Chest X-Ray 07/18/19 22:39 IMPRESSION: No acute cardiopulmonary disease. D/ / Adiel Mendiola MD / Adiel Mendiola MD Interpreting Provider: Adiel Mendiola MD Chest CTA 07/19/19 00:00 IMPRESSION: No evidence of pulmonary embolism or acute pulmonary abnormality. D/ / Fransisco Calhoun MD / Fransisco Calhoun MD Interpreting Provider: Fransisco Calhoun MD - Assessment and Plan (1) CAD (coronary artery disease) Current Visit: No Status: Chronic Qualifiers: Coronary Disease-Associated Artery/Lesion type: [place] artery [place] vs. transplanted heart: [place] heart Associated angina: with other forms of angina Qualified Code(s): I25.118 - Atherosclerotic heart disease of [place] coronary artery with other forms of angina pectoris (2) HTN (hypertension) Current Visit: No Status: Chronic Qualifiers: Hypertension type: essential hypertension Qualified Code(s): I10 - Essential (primary) hypertension (3) DVT prophylaxis Current Visit: No Status: Acute (4) Unstable angina Current Visit: No Status: Acute (5) History of CVA (cerebrovascular accident) Current Visit: No Status: Resolved (6) Increased white blood cell count Current Visit: Yes Status: Acute Qualifiers: Leukocytosis type: unspecified Qualified Code(s): D72.829 - Elevated white blood cell count, unspecified (7) Chest pain Current Visit: Yes Status: Acute Qualifiers: Chest pain type: unspecified Qualified Code(s): R07.9 - Chest pain, unspecified - Time Spent With Patient Total time spent is greater than 50% in coordination of care (as documented) at patient's floor/unit and/or counseling patient: - Attending Attestation Patient seen and examined independently, including review of objective data including labs. I agree with plan of care as documented below by the resident with the following comments: Face to face seen 1:30am. Agree with above plan. Acute unstable angina- Patient allergic to nitro(IV, topical, sublingual), however was able to tolerate imdur for past few months that was recently stopped in May. CP worsened by occuring at rest now , typical presentation. ACS management and cardiology consult. Leukocytosis with immature granulocyte predominant. Concerning for CLL however with presence of basophil/eosinophil makes CML still possible. Orderred Peripheral smear and if negative would benefit from Bone marrow biopsy. Heme/onc consultation.
[2019-07-19] MEDS ORDERED: *HR* Labetalol 20 MG/4 ML SYRINGE IVP PRN (01:52)
[2019-07-19] MEDS ORDERED: Morphine Sulfate 2 MG/ML SYRINGE IVP PRN (02:22)
[2019-07-19] MEDS ORDERED: Naloxone 0.4 MG/ML INJ IVP PRN (02:23)
[2019-07-19] MEDS ORDERED: Ondansetron ODT 4 MG TAB.RAPDIS SL PRN (02:23)
[2019-07-19] MEDS ORDERED: *HR* Heparin 5,000 UNIT/ML VIAL IVP ONE (02:41)
[2019-07-19] MEDS ORDERED: *HR* Heparin 5,000 UNIT/ML VIAL IVP PRN ×2 (02:41)
[2019-07-19] MEDS ORDERED: Heparin 25,000 UNIT/250 ML D5W 25,000 UNIT/250 ML IV.SOLN IVC SCH (02:45)
[2019-07-19 04:03] LABS: Heparin anti-factor XA UFH 0.04 IU/mL (0.30-0.70)
[2019-07-19 04:04] LABS: INR 1.1; Prothrombin Time 12.6 Seconds (9.4-12.1)
[2019-07-19 04:07] LABS: Hemoglobin 14.3 g/dL (12.9-16.9); Mean Corpuscular Hemoglobin 32.8 pg (28.0-33.3); Mean Corpuscular Volume 96.3 fL (83.0-100.0); Mean Platelet Volume 9.3 fL (9.4-12.4); Platelet Count 223 K/mcL (140-400); Red Blood Count 4.36 M/mcL (4.19-5.50); Red Cell Distribution Width 13.2 % (11.5-14.5); White Blood Count 19.1 K/mcL (4.3-11.1)
[2019-07-19] MEDS: Morphine Sulfate 2 MG/ML SYRINGE IVP PRN ×5 (04:39→20:51)
[2019-07-19] MEDS: lamoTRIgine 100 MG TABLET PO SCH ×2 (07:38→20:50)
[2019-07-19] MEDS: Aspirin Enteric Coated 81 MG Tablet PO SCH (07:38)
[2019-07-19] MEDS: Ranolazine 500 MG TAB.ER.12H PO SCH ×2 (07:38→20:50)
[2019-07-19] MEDS: Gabapentin 300 MG CAPSULE PO SCH ×3 (07:38→20:50)
[2019-07-19] MEDS: Metoprolol XL (24 HR) Succ 50 MG TAB.ER.24H PO SCH (07:38)
[2019-07-19 08:39] LABS: Albumin 4.5 g/dL (3.5-5.7); Albumin/Globulin Ratio 1.9 (1.1-2.2); Bilirubin,Direct 0.1 mg/dL (0.0-0.2); Bilirubin,Indirect 0.4 mg/dL (0.0-1.2); Bilirubin,Total 0.5 mg/dL (0.3-1.0); Globulin 2.4 g/dL (2.4-3.5); Total Protein 6.9 g/dL (6.4-8.9)
--- NOTE | 2019-07-19 09:26 | Electrocardiograph Report ---
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
--- NOTE | 2019-07-19 09:33 | Electrocardiograph Report ---
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
--- NOTE | 2019-07-19 09:44 | Cardiology Consult Note ---
Date of Encounter: 07/19/19 Time of Encounter: 08:30 Assessment and Plan (1) Chest pain Current Visit: Yes Status: Acute Per cardiology: -Chest pain atypical, reproduceable on exam. Different from previous angina. -Troponins negative x2 -04/2019 TTE with LVEF 65%, mild concentric LVH, no SWMA. -No acute ischemic ECG changes noted. -Known CAD s/p [facility] 01/2019 with Left main angiographically free of disease. LAD is angiographically free of disease. 1st Diagonal is angiographically free of disease. 70% stenosis in the 1st Marginal with TROY placed. 30% instent stenosis in the Mid RCA. 60% stenosis in the Right PDA. -ON asa, statin, BB, plavix, ranexa. -Of note, patient is also pending oncology work up for concern for leukemia. -Will check limited TTE. -Continue current medical therapy. Of note, previously intolerant to imdur. Qualifiers: Chest pain type: unspecified Qualified Code(s): R07.9 - Chest pain, unspecified (2) Pacemaker Current Visit: Yes Status: Acute Per cardiology: -Has known pacemaker. -Reports chest pain around pacemaker site. -CHest x-ray normal, CTA normal. -Reports "chriping" from pacemaker. -Device checked today with normal function. Per [employer], patient's device does not make noises, beep, or chirp. (3) CAD (coronary artery disease) Current Visit: No Status: Chronic Per cardiology: -Known CAD s/p reportedly 17 stents. -[facility] as above. -On asa, statin, BB, plavix, ranexa, cardizem. -Continue current medical therapy. Qualifiers: Coronary Disease-Associated Artery/Lesion type: [place] artery [place] vs. transplanted heart: [place] heart Associated angina: without angina Qualified Code(s): I25.10 - Atherosclerotic heart disease of [place] coronary artery without angina pectoris Discussion w patient/family: The assessment and plan as outlined above was discussed with the patient who expressed understanding and agreement. All questions were answered. Thank you for involving us in the care of your patient. Please call with any questions. Discussed and reviewed with History of Present Illness Consult date: 07/19/19 Requesting physician: Ginny Wynne Consult reason: chest pain around pacemaker Chief complaint: chest pain around pacemaker, pacemaker beeping History of present illness: Mr. Bingham is a 64 year old male with a relevant past medical history of CAD s/p multiple PCIs (reportedly 17 stents), CVA, HLD, HTN, Pacemaker, who presented to [facility] with complaints of chest pain around his pacemaker sight. Also reports pacemaker "chirping." Patient reports current chest pain is around pacemaker sight and feels like a stabbing sensation. Patient states this is totally different than his previous angina. Patient also states that his pacemaker has been chirping, states it last made a noise around 2300 last night. Patient denies chest pain similar to his previous angina. Denies exertional chest pain. Denies shortness of breath. Reports he had been feeling well, until the last few days. Past Med Surg Social Fam HX - Past Medical History Attestation: Yes The following information was validated with the patient. Source: patient Medical history: coronary artery disease, CVA, GERD, hyperlipidemia, hypertension, migraine, myocardial infarction, TIA Additional medical history: 17 cardiac stents. Pacemaker. Hemaplegic migraines Psychiatric history: depression - Past Surgical History Surgical History: orthopedic, other, pacemaker/AICD Additional surgical history: Left rotator cuff repair, 17 stents placed - Social History Smoking Status: Never smoker Smokeless Tobacco Status: No Alcohol use: none Drug use: marijuana - Family History Father Family Member Ethnicity: Non- Living Status: Hx Family Cardiac Disorders: Yes ([place]) Hx Family Neurologic Disorders: Yes (Alzheimers) Mother Family Member Ethnicity: Non- Living Status: Hx Family Cardiac Disorders: Yes (mother,fATHER,sister) Hx Family Respiratory Disorders: Yes (mother) Hx Family Cancer: No Hx Family GI Disorders: No Hx Family Endocrine Disorder: No Hx Family Neuromuscular Disorders: No Hx Family Neurologic Disorders: Yes (self) Hx Family HEENT Disorders: No Hx Family Autoimmune Disorders: No Brother Family Member Ethnicity: Non- Living Status: Hx Family Cardiac Disorders: Yes (AIDS) Sister Family Member Ethnicity: Non- Living Status: Still Living Hx Family Cardiac Disorders: Yes (HTN) Medications and Allergies Finasteride [Proscar] 5 mg PO DAILY 08/14/18 [History] Gabapentin [Neurontin] 600 mg PO TID 08/14/18 [History] Pantoprazole Sodium [Protonix] 40 mg PO QPM 08/14/18 [History] Ranolazine [Ranexa] 1,000 mg PO BID 08/14/18 [History] Tamsulosin [Flomax] 0.4 mg PO DAILY 08/14/18 [History] Vitamin E 1,000 unit PO DAILY 08/14/18 [History] lamoTRIgine [Lamictal] 100 mg PO BID 08/14/18 [History] Atorvastatin [Lipitor] 80 mg PO HS 30 Days #30 tablet 08/19/18 [Rx] Clopidogrel [Plavix] 75 mg PO DAILY 01/24/19 [History] Diltiazem [Cardizem] 30 mg PO DAILY 01/24/19 [History] Tizanidine HCl 4 mg PO BID PRN 01/24/19 [History] Acetaminophen [Tylenol] 1,000 mg PO QPM 03/03/19 [History] Aspirin [Adult Aspirin Regimen] 81 mg PO DAILY 03/03/19 [History] Cholecalciferol (Vitamin D3) [Vitamin D3] 6,000 unit PO DAILY 03/03/19 [History] Escitalopram [Lexapro] 20 mg PO DAILY 03/03/19 [History] Metoprolol XL (24 HR) Succ [Toprol Xl] 50 mg PO DAILY #30 tab.er.24h 03/05/19 [Rx] Allergy/AdvReac Type Severity Reaction Status Date / Time hydrochlorothiazide Allergy Vomiting Verified 07/18/19 22:17 nitroglycerin Allergy Vomiting Verified 07/18/19 22:17 sumatriptan [From Imitrex] Allergy Anaphylaxis Verified 07/18/19 22:17 All Systems Review: The remainder of the systems were reviewed and are negative - Cardiovascular Cardiovascular: as per HPI, chest pain at rest Physical Examination Vital Signs, Last 4 Hours Temp Pulse Resp BP Pulse Ox 07/19/19 07:30 95 07/19/19 06:49 97.8 F 61 16 143/91 95 General: Conversant, No Apparent Distress HEENT: Atraumatic, Normocephaly, Mucus Membranes Moist Neck: No JVD, Normal carotid pulses Cardiac: Reg Rate and Rhythm, Normal S1 and S2, No Murmur Lungs: Normal Breath Sounds, No Wheeze, Rales, Rhonchi Neuro: Alert and responsive, No focal deficits noted Abdomen: Soft, Non-Tender Skin: No rashes noted on visualized skin Musculoskeletal: Other (Chest pain reproduceable with palpation. ) Extremities: No Clubbing, No Cyanosis, No Edema, Normal Pulses Results 07/19/19 03:09 07/18/19 22:51 Lab Results Impressions Chest X-Ray 07/18/19 22:39 IMPRESSION: No acute cardiopulmonary disease. D/ / Adiel Mendiola MD / Adiel Mendiola MD Interpreting Provider: Adiel Mendiola MD Chest CTA 07/19/19 00:00 IMPRESSION: No evidence of pulmonary embolism or acute pulmonary abnormality. D/ / Fransisco Calhoun MD / Fransisco Calhoun MD Interpreting Provider: Fransisco Calhoun MD Active Medications Acetaminophen (Tylenol) 1,000 mg PO QPM [facility] Stop: 01/18/20 18:01 Aspirin (Aspirin Ec) 81 mg PO DAILY REBECCA Stop: 01/18/20 09:01 Last Admin: 07/19/19 07:38 Dose: 81 mg Documented by: Atorvastatin Calcium (Lipitor) 80 mg PO HS REBECCA Stop: 01/18/20 21:01 Clopidogrel Bisulfate (Plavix) 75 mg PO DAILY REBECCA Stop: 01/18/20 09:01 Last Admin: 07/19/19 07:38 Dose: 75 mg Documented by: Diltiazem HCl (Cardizem) 30 mg PO DAILY REBECCA Stop: 01/18/20 09:01 Last Admin: 07/19/19 07:38 Dose: 30 mg Documented by: Escitalopram Oxalate (Lexapro) 20 mg PO DAILY REBECCA Stop: 01/18/20 09:01 Last Admin: 07/19/19 07:38 Dose: 20 mg Documented by: Gabapentin (Neurontin) 600 mg PO TID REBECCA Stop: 01/18/20 09:01 Last Admin: 07/19/19 07:38 Dose: 600 mg Documented by: Heparin Sodium (Porcine) (Heparin) 4,000 unit IVP Q6HR PRN PRN Reason: SEE COMMENTS Stop: 01/18/20 02:42 Heparin Sodium (Porcine) (Heparin) 2,000 unit IVP Q6H PRN PRN Reason: SEE COMMENTS Stop: 01/18/20 02:42 Heparin Sodium/Dextrose (Heparin 25,000 Unit/250 Ml D5w) 25,000 unit in 250 mls @ 8.709 mls/hr IVC .Q24H REBECCA; Protocol Stop: 01/18/20 02:46 Last Admin: 07/19/19 03:28 Dose: 12 unit/kg/hr, 8.7 mls/hr Documented by: Labetalol HCl (Labetalol) 10 mg IVP Q1H PRN PRN Reason: Systolic >180, Diastolic >110 Stop: 01/18/20 01:53 Last Admin: 07/19/19 02:35 Dose: 10 mg Documented by: Lamotrigine (Lamictal) 100 mg PO BID [facility] Stop: 01/18/20 09:01 Last Admin: 07/19/19 07:38 Dose: 100 mg Documented by: Metoprolol Succinate (Toprol Xl) 50 mg PO DAILY [facility] Stop: 01/18/20 09:01 Last Admin: 07/19/19 07:38 Dose: 50 mg Documented by: Morphine Sulfate (Morphine) 1 mg IVP Q2H PRN; Protocol PRN Reason: Breakthrough Pain Stop: 01/18/20 03:47 Last Admin: 07/19/19 07:39 Dose: 1 mg Documented by: Naloxone HCl (Narcan) 0.4 mg IVP Q2MPRN PRN PRN Reason: SEE COMMENTS Stop: 01/18/20 02:24 Omeprazole (Prilosec) 40 mg PO QPM [facility] Stop: 01/18/20 18:01 Ondansetron HCl (Zofran Odt) 4 mg SL Q8HR PRN PRN Reason: Nausea And Vomiting Stop: 01/18/20 02:24 Oxycodone HCl (Oxycodone Oral Conc) 5 mg SL Q6HR PRN; Protocol PRN Reason: mild to moderate pain Stop: 01/18/20 03:47 Last Admin: 07/19/19 04:00 Dose: 5 mg Documented by: Ranolazine (Ranexa) 1,000 mg PO BID [facility] Stop: 01/18/20 09:01 Last Admin: 07/19/19 07:38 Dose: 1,000 mg Documented by: Laboratory Tests 07/18/19 07/19/19 07/19/19 22:51 03:09 05:08 WBC 19.1 H Hgb 14.3 Creatinine 1.16 Troponin I < 0.03 < 0.03 - Imaging and Cardiology Chest Xray: report reviewed Stress Test: report reviewed Echo: report reviewed Cardiac cath: report reviewed - EKG Interpretation EKG results cardiology: personally reviewed (ECG with SR, RBBB noted.), other (Telemetry reviewed with average HR previous 12 hours noted to be 64, SR. Intermittent paced rhythm noted.) Consult Discharge Plan - Plan Referrals: Louisa Hendrickson MD [Primary Care Provider] -
--- NOTE | 2019-07-19 14:52 | Event Note ---
Date of Encounter: 07/19/19 Time of Encounter: 14:46 I have seen and evaluated the patient at bedside. H&P, vitals, labs and image reviewed. patient reported 8/10 retro sternal chest pain during my evaluation. per cardiology note patient will have and ischemic work up possible tomorrow. continue dual anti-antiplatelets, statin and bb. will continue to follow.
--- NOTE | 2019-07-19 17:12 | Oncology Inp Consult Note ---
Date of Encounter: 07/19/19 Time of Encounter: 17:10 Assessment and Plan (1) Chest pain Status: Acute Assessment and plan: History of coronary artery disease. Cardiology consult noted. He is going to have further ischemic evaluation for retrosternal chest pain Qualifiers: Chest pain type: unspecified Qualified Code(s): R07.9 - Chest pain, unspecified (2) Increased white blood cell count Status: Acute Assessment and plan: Leukocytosis. Neutrophil count 9400 monocyte count 2800. His neutrophils ranged between 8891-7048 in the past to April 2019. 20% immature granulocyte Most likely this is reactive from chest pain/ACS. Await peripheral smear review Lymphocyte counts normal. We will continue to follow WBC count. If immature granulocyte persist would consider further workup including bone marrow biopsy. Meanwhile we will send the blood for flow cytometry Qualifiers: Leukocytosis type: unspecified Qualified Code(s): D72.829 - Elevated white blood cell count, unspecified - Data of Consult Patient: new to practice Requesting Physician: Elli Suarez DO Primary Care Provider: Louisa Hendrickson MD - Consult Narrative Reason for consult: Leukocytosis, chest pain History of present illness: Admitted with retrosternal chest pain. past medical history of CAD, CVA, PA, Gerd, hypertension, pacemaker/AICD who presented to [facility] complaining of chest pain. nown history of CAD with reported 17 stents. He had stent placement in December 2018 and January 2019. 01/25/2019 [facility]: severe one vessel CAD with PTCA/ drug eluting stent placement in the 1st proximal. -05/08/2019 limited TTE: EF 65%, no segmental dysfunction. Cardiology consult noted. After interrogating the pacemaker the discomfort around pacemaker improved. But he continued to have retrosternal chest pain. Cardiology is planning on ischemic evaluation. Patient on Ranexa He is disabled because of his coronary artery disease. 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 Pacemaker. Hemaplegic migraines Psychiatric history: depression - Past Surgical History Surgical History: orthopedic, other, pacemaker/AICD Additional surgical history: Left rotator cuff repair, 17 stents placed - Social History Smoking Status: Never smoker Smokeless Tobacco Status: No Alcohol use: none Drug use: marijuana - Family History Father Family Member Ethnicity: Non- Living Status: Hx Family Cardiac Disorders: Yes ([place]) Hx Family Neurologic Disorders: Yes (Alzheimers) Mother Family Member Ethnicity: Non- Living Status: Hx Family Cardiac Disorders: Yes (mother,fATHER,sister) Hx Family Respiratory Disorders: Yes (mother) Hx Family Cancer: No Hx Family GI Disorders: No Hx Family Endocrine Disorder: No Hx Family Neuromuscular Disorders: No Hx Family Neurologic Disorders: Yes (self) Hx Family HEENT Disorders: No Hx Family Autoimmune Disorders: No Brother Family Member Ethnicity: Non- Living Status: Hx Family Cardiac Disorders: Yes (AIDS) Sister Family Member Ethnicity: Non- Living Status: Still Living Hx Family Cardiac Disorders: Yes (HTN) Medications and Allergies Finasteride [Proscar] 5 mg PO DAILY 08/14/18 [History] Gabapentin [Neurontin] 600 mg PO TID 08/14/18 [History] Pantoprazole Sodium [Protonix] 40 mg PO QPM 08/14/18 [History] Ranolazine [Ranexa] 1,000 mg PO BID 08/14/18 [History] Tamsulosin [Flomax] 0.4 mg PO DAILY 08/14/18 [History] Vitamin E 1,000 unit PO DAILY 08/14/18 [History] lamoTRIgine [Lamictal] 100 mg PO BID 08/14/18 [History] Atorvastatin [Lipitor] 80 mg PO HS 30 Days #30 tablet 08/19/18 [Rx] Clopidogrel [Plavix] 75 mg PO DAILY 01/24/19 [History] Diltiazem [Cardizem] 30 mg PO DAILY 01/24/19 [History] Tizanidine HCl 4 mg PO BID PRN 01/24/19 [History] Acetaminophen [Tylenol] 1,000 mg PO QPM 03/03/19 [History] Aspirin [Adult Aspirin Regimen] 81 mg PO DAILY 03/03/19 [History] Cholecalciferol (Vitamin D3) [Vitamin D3] 6,000 unit PO DAILY 03/03/19 [History] Escitalopram [Lexapro] 20 mg PO DAILY 03/03/19 [History] Metoprolol XL (24 HR) Succ [Toprol Xl] 50 mg PO DAILY #30 tab.er.24h 03/05/19 [Rx] Carboxymethylcellulose Sodium [Refresh Tears] 1 drop BOTH EYES PRN PRN 07/19/19 [History] Allergy/AdvReac Type Severity Reaction Status Date / Time sumatriptan [From Imitrex] Allergy Anaphylaxis Verified 07/19/19 16:30 hydrochlorothiazide AdvReac Vomiting Verified 07/19/19 16:30 nitroglycerin AdvReac Vomiting Verified 07/19/19 16:30 Review of systems: 12 point review of system obtained. All negative except Retrosternal chest pain. Mild terms of breath with exertion. Appetite okay. Mild nausea. Denied headache. No diarrhea. Oncology - Exam - Constitutional Exam: GENERAL: Alert and oriented, well appearing. Mental Status: Affect appropriate for circumstances HEENT: Sclerae anicteric. No mucositis or thrush. No other oral or pharyngeal lesions or erythema. Skin: No rashes or petechiae. No evidence of skin malignancy Lymph nodes: No cervical, supraclavicular, axillary, or inguinal adenopathy. Lungs: Clear to auscultation and percussion bilaterally. Cardiovascular: Regular rate and rhythm. No gallops, murmurs, or rubs. Abdomen: Soft, nontender; no organomegaly or masses palpable. Extremities: No edema. No calf swelling or tenderness. No joint deformity. Neurologic: Alert, cranial nerves II-XII intact; normal gait; no focal weakness or sensory abnormalities. Consult Discharge Plan - Plan Referrals: Luoisa Hendrickson MD [Primary Care Provider] - Inpatient Charges Provider: Dr. Lizzette Frausto Consult - Inpatient: [id number]
[2019-07-19] MEDS: *HR* Heparin 5,000 UNIT/ML VIAL SQ SCH (17:30)
[2019-07-20] MEDS: Morphine Sulfate 2 MG/ML SYRINGE IVP PRN ×3 (00:15→06:16)
[2019-07-20 04:23] LABS: Hematocrit 42.6 % (37.5-50.1); Hemoglobin 14.3 g/dL (12.9-16.9); Mean Corpuscular HGB Conc 33.6 g/dL (31.6-35.5); Mean Corpuscular Hemoglobin 32.3 pg (28.0-33.3); Mean Corpuscular Volume 96.2 fL (83.0-100.0); Mean Platelet Volume 9.3 fL (9.4-12.4); Platelet Count 222 K/mcL (140-400); Red Blood Count 4.43 M/mcL (4.19-5.50); Red Cell Distribution Width 13.2 % (11.5-14.5); White Blood Count 17.1 K/mcL (4.3-11.1)
[2019-07-20 04:54] LABS: Lymphocytes # 4.5 K/mcL (0.6-4.6); Monocytes # 1.4 K/mcL (0.0-1.3); Neutrophils # 9.9 K/mcL (1.6-8.9); Platelet Estimate Normal (Normal)
[2019-07-20 04:55] LABS: Smudge Cells Present (Not Present)
[2019-07-20] MEDS: *HR* Heparin 5,000 UNIT/ML VIAL SQ SCH ×2 (06:16→17:57)
[2019-07-20] MEDS: Ranolazine 500 MG TAB.ER.12H PO SCH ×2 (08:57→20:02)
[2019-07-20] MEDS: Gabapentin 300 MG CAPSULE PO SCH ×3 (08:58→20:02)
[2019-07-20] MEDS: Metoprolol XL (24 HR) Succ 50 MG TAB.ER.24H PO SCH (08:58)
[2019-07-20] MEDS: Aspirin Enteric Coated 81 MG Tablet PO SCH (08:58)
[2019-07-20] MEDS: lamoTRIgine 100 MG TABLET PO SCH ×2 (08:58→20:02)
[2019-07-20] MEDS: *HR* OxyCODONE Immed Rel 5 MG TABLET PO PRN ×3 (09:03→20:03)
--- NOTE | 2019-07-20 11:56 | Cardiology Progress Note ---
Date of Encounter: 07/20/19 Time of Encounter: 11:52 Assessment and Plan (1) Chest pain Current Visit: Yes Status: Acute Per cardiology: -Chest pain atypical, reproduceable on exam. Different from previous angina. However, now patient has reported recurrent typical angina overnight. Denies current chest pain. -Troponins negative x3. -04/2019 TTE with LVEF 65%, mild concentric LVH, no SWMA. TTE this admission with LVEF preserved, no SWMA. -No acute ischemic ECG changes noted. -Known CAD s/p [facility] 01/2019 with Left main angiographically free of disease. LAD is angiographically free of disease. 1st Diagonal is angiographically free of disease. 70% stenosis in the 1st Marginal with TROY placed. 30% instent stenosis in the Mid RCA. 60% stenosis in the Right PDA. -ON asa, statin, BB, plavix, ranexa, cardizem. -Of note, patient is also pending oncology work up for concern for leukemia. -Will plan for stress test in am. Discussed and reviewed with patient, who is agreeable to proceed with stress. -Continue current medical therapy. Of note, previously intolerant to imdur. Qualifiers: Chest pain type: unspecified Qualified Code(s): R07.9 - Chest pain, unspecified (2) Pacemaker Current Visit: Yes Status: Acute Per cardiology: -Has known pacemaker. -Reports chest pain around pacemaker site. -CHest x-ray normal, CTA normal. -Reports "chriping" from pacemaker. -Device checked with normal function. Per [id number] [employer], patient's device does not make noises, beep, or chirp. (3) CAD (coronary artery disease) Current Visit: No Status: Chronic Per cardiology: -Known CAD s/p reportedly 17 stents. -[facility] as above. -On asa, statin, BB, plavix, ranexa, cardizem. -Continue current medical therapy. -Dual anti-platelet therapy uninterrupted for at least one year from last PCI (01/2019). Qualifiers: Coronary Disease-Associated Artery/Lesion type: [place] artery [place] vs. transplanted heart: [place] heart Associated angina: without angina Qualified Code(s): I25.10 - Atherosclerotic heart disease of [place] coronary artery without angina pectoris Discussion w patient/family: The assessment and plan as outlined above was discussed with the patient who expressed understanding and agreement. All questions were answered. Thank you for involving us in the care of your patient. Please call with any questions. Discussed and reviewed with . Subjective Principal diagnosis: chest pain Interval history: Patient denies current chest pain. Does report episodes of chest pain overnight. Objective Vital Signs, Last 4 Hours Temp Pulse Resp BP Pulse Ox 07/20/19 10:46 98.4 F 60 16 123/74 98 General: Conversant, No Apparent Distress HEENT: Atraumatic, Normocephaly, Mucus Membranes Moist Neck: No JVD, Normal carotid pulses Cardiac: Reg Rate and Rhythm, Normal S1 and S2, No Murmur Lungs: Normal Breath Sounds, No Wheeze, Rales, Rhonchi Neuro: Alert and responsive, No focal deficits noted Abdomen: Soft, Non-Tender Skin: No rashes noted on visualized skin Musculoskeletal: No Chest Wall Tenderness Extremities: No Clubbing, No Cyanosis, No Edema, Normal Pulses Results 07/20/19 03:59 07/18/19 22:51 Lab Results Impressions Echocardiogram Limited Views 07/19/19 10:03 Impressions: LVEF 60%. Mild concentric left ventricular hypertrophy. Normal right ventricular structure and function. Left Ventricular Wall Motion: Rest Echo Findings All wall segments showed normal motion. Findings: Study Quality * Technically adequate exam. ECG Findings * Normal sinus rhythm. Left Ventricle * LVEF 60%. * Mild concentric left ventricular hypertrophy. Right Ventricle * Normal right ventricular structure and function. Aorta * Normally sized aortic root. Pericardium * There is no pericardial effusion present. Device lead * A device lead was visualized in the right atrium and right ventricle. Active Medications Acetaminophen (Tylenol) 1,000 mg PO QPM [facility] Stop: 01/18/20 18:01 Last Admin: 07/19/19 17:30 Dose: 1,000 mg Documented by: Aspirin (Aspirin Ec) 81 mg PO DAILY [facility] Stop: 01/18/20 09:01 Last Admin: 07/20/19 08:58 Dose: 81 mg Documented by: Atorvastatin Calcium (Lipitor) 80 mg PO HS REBECCA Stop: 01/18/20 21:01 Last Admin: 07/19/19 20:50 Dose: 80 mg Documented by: Clopidogrel Bisulfate (Plavix) 75 mg PO DAILY [facility] Stop: 01/18/20 09:01 Last Admin: 07/20/19 08:58 Dose: 75 mg Documented by: Diltiazem HCl (Cardizem) 30 mg PO BID [facility] Stop: 01/19/20 21:01 Escitalopram Oxalate (Lexapro) 20 mg PO DAILY [facility] Stop: 01/18/20 09:01 Last Admin: 07/20/19 08:58 Dose: 20 mg Documented by: Gabapentin (Neurontin) 600 mg PO TID [facility] Stop: 01/18/20 09:01 Last Admin: 07/20/19 08:58 Dose: 600 mg Documented by: Heparin Sodium (Porcine) (Heparin) 5,000 unit SQ Q12HCO [facility]; Protocol Stop: 01/18/20 18:01 Last Admin: 07/20/19 06:16 Dose: 5,000 unit Documented by: Labetalol HCl (Labetalol) 10 mg IVP Q1H PRN PRN Reason: Systolic >180, Diastolic >110 Stop: 01/18/20 01:53 Last Admin: 07/19/19 02:35 Dose: 10 mg Documented by: Lamotrigine (Lamictal) 100 mg PO BID [facility] Stop: 01/18/20 09:01 Last Admin: 07/20/19 08:58 Dose: 100 mg Documented by: Metoprolol Succinate (Toprol Xl) 50 mg PO DAILY [facility] Stop: 01/18/20 09:01 Last Admin: 07/20/19 08:58 Dose: 50 mg Documented by: Naloxone HCl (Narcan) 0.4 mg IVP Q2MPRN PRN PRN Reason: SEE COMMENTS Stop: 01/18/20 02:24 Omeprazole (Prilosec) 40 mg PO QPM [facility] Stop: 01/18/20 18:01 Last Admin: 07/19/19 17:30 Dose: 40 mg Documented by: Ondansetron HCl (Zofran Odt) 4 mg SL Q8HR PRN PRN Reason: Nausea And Vomiting Stop: 01/18/20 02:24 Oxycodone HCl (Roxicodone) 2.5 mg PO Q4HR PRN; Protocol PRN Reason: mild to moderate pain Stop: 01/19/20 08:54 Last Admin: 07/20/19 09:03 Dose: 2.5 mg Documented by: Oxycodone HCl (Oxycodone Oral Conc) 5 mg SL Q6HR PRN; Protocol PRN Reason: Severe Pain Stop: 01/18/20 03:47 Last Admin: 07/20/19 10:50 Dose: 5 mg Documented by: Ranolazine (Ranexa) 1,000 mg PO BID [facility] Stop: 01/18/20 09:01 Last Admin: 07/20/19 08:57 Dose: 1,000 mg Documented by: Laboratory Tests 07/20/19 03:59 Hgb 14.3 - Imaging and Cardiology Chest Xray: report reviewed Stress Test: pending Echo: report reviewed Cardiac cath: report reviewed - EKG Interpretation EKG results cardiology: other (Telemetry reviewed with average HR previous 12 hours noted to be 60, SR. Intermittent paced rhythm noted.) Consult Discharge Plan - Plan Referrals: Louisa Hendrickson MD [Primary Care Provider] -
--- NOTE | 2019-07-20 12:34 | Internal Med Progress Note ---
Hospitalist Progress Note - Encounter Date of Encounter: 07/20/19 Time of Encounter: 12:32 - Subjective Interval History: I have seen and evaluated the patient at bedside. Patient reported still having chest discomfort, denies chest pain, nausea or vomiting. Reported he was started on a Z-pack on by his PCP for a possible tooth infection. - Exam Vitals: Temp Pulse Resp BP Pulse Ox 98.4 F 60 16 123/74 98 07/20/19 10:46 07/20/19 10:46 07/20/19 10:46 07/20/19 10:46 07/20/19 10:46 Exam: Vitals: Reviewed General: Alert and oriented x4. In mild distress due to chest discomfort. Cardiovascular: RRR, normal S1 & S2, no rubs, murmurs or gallops. Lungs: CTA b/l, no wheezes or crackles. Abdomen: Soft, non-tender, no rigidity. Extremities: No deformity, no edema or tenderness, no joint swelling or clubbing. Neurological: Normal cognition and motor skills. Rest of the physical exam is non contributory - Assessment and Plan (1) CAD (coronary artery disease) Current Visit: No Status: Chronic (2) HTN (hypertension) Current Visit: No Status: Chronic (3) DVT prophylaxis Current Visit: No Status: Acute (4) History of CVA (cerebrovascular accident) Current Visit: No Status: Resolved (5) Chest pain Current Visit: Yes Status: Acute (6) Leukocytosis Current Visit: Yes Status: Acute (7) Depression Current Visit: No Status: Chronic (8) HLD (hyperlipidemia) Current Visit: No Status: Chronic (9) HTN (hypertension) Current Visit: No Status: Chronic - Summary of Assessment and Plan Summary of Assessment and Plan: Mr. Bingham is a 64 year old male with a past medical history of CAD, CVA, [place], Gerd, hypertension, pacemaker/AICD who presented to [facility] complaining of chest pain. Assessment: 1. chest pain 2. CAD 3. TMJ 4. HLD 5. HTN 6. Leukocytosis 7. VTE prophylaxis 8. Depression 9. BPH Plan: Patient continues to report chest pain - on dual antiplatelet therapy and a bb - c/w ranolazine - scheduled for stress test tomorrow morning - NPO at midnight - cardiology recommendations appreciated - On tamsulosin and finasteride - c/w citalopram - Patient reported started on a Z-pack 4 days ago for a possible tooth infection - will resume azithromycin to complete 7 days of treatment - Hem&Onc recommendations appreciated Disposition: - Patient to remain in the hospital. scheduled for stress test tomorrow morning. - Time Spent with Patient Total time spent is greater than 50% in coordination of care (as documented) at patient's floor/unit and/or counseling patient: Greater than 35 minutes (45) Plan of Care Discussed with: patient (and the nurse.) Internal Medicine: Result - Labs CBC & Chem 7: 07/20/19 03:59 07/18/19 22:51 Labs: Short CBC 07/20/19 Range/Units 03:59 WBC 17.1 H (4.3-11.1) K/mcL Hgb 14.3 (12.9-16.9) g/dL Hct 42.6 (37.5-50.1) % Plt Count 222 (140-400) K/mcL Neutrophils # 9.9 H (1.6-8.9) K/mcL - ABG Interpretation ABG results: PT/INR, D-dimer PT 12.6 Seconds (9.4-12.1) H 07/19/19 03:09 - Impressions Impressions Echocardiogram Limited Views 07/19/19 10:03 Impressions: LVEF 60%. Mild concentric left ventricular hypertrophy. Normal right ventricular structure and function. Left Ventricular Wall Motion: Rest Echo Findings All wall segments showed normal motion. Findings: Study Quality * Technically adequate exam. ECG Findings * Normal sinus rhythm. Left Ventricle * LVEF 60%. * Mild concentric left ventricular hypertrophy. Right Ventricle * Normal right ventricular structure and function. Aorta * Normally sized aortic root. Pericardium * There is no pericardial effusion present. Device lead * A device lead was visualized in the right atrium and right ventricle. Consult Discharge Plan - Plan Referrals: Louisa Hendrickson MD [Primary Care Provider] - (1) CAD (coronary artery disease) Qualifiers: Coronary Disease-Associated Artery/Lesion type: [place] artery [place] vs. transplanted heart: [place] heart Associated angina: without angina Qualified Code(s): I25.10 - Atherosclerotic heart disease of [place] coronary artery without angina pectoris (2) HTN (hypertension) Qualifiers: Hypertension type: essential hypertension Qualified Code(s): I10 - Essential (primary) hypertension (5) Chest pain Qualifiers: Chest pain type: unspecified Qualified Code(s): R07.9 - Chest pain, unspecified (7) Depression Qualifiers: Depression Type: major depressive disorder Major depression recurrence: unspecified whether recurrent Active/Remission status: currently active Psychotic features: without psychotic features (8) HLD (hyperlipidemia) Qualifiers: Hyperlipidemia type: mixed hyperlipidemia Qualified Code(s): E78.2 - Mixed hyperlipidemia (9) HTN (hypertension) Qualifiers: Hypertension type: essential hypertension Qualified Code(s): I10 - Essential (primary) hypertension
[2019-07-20] MEDS: Azithromycin 250 MG TABLET PO SCH (13:33)
--- NOTE | 2019-07-20 15:19 | Oncology Inp Progress Note ---
<Naye Sewell - Last Filed: 07/20/19 16:40> Date of Encounter: 07/20/19 Time of Encounter: 14:30 (1) Chest pain Current Visit: Yes Status: Acute Assessment and plan: History of coronary artery disease. Cardiology consult noted. He is going to have further ischemic evaluation for retrosternal chest pain Chest pain persists. Mild relief from oxycodone. Patient notes plan for stress test tomorrow. Qualifiers: Chest pain type: unspecified Qualified Code(s): R07.9 - Chest pain, unspecified (2) Leukocytosis Current Visit: Yes Status: Acute Assessment and plan: WBC 17.1 (peaked at 19.6) Leukocytosis. Neutrophil count 9400 monocyte count 2800. His neutrophils ranged between 6614-9149 in the past to April 2019. 20% immature granulocyte Most likely this is reactive from chest pain/ACS. Await peripheral smear review. Smear pending 07/20/19. Lymphocyte counts normal. We will continue to follow WBC count. If immature granulocyte persist would consider further workup including bone marrow biopsy. Meanwhile we will send the blood for flow cytometry Qualifiers: Qualified Code(s): D72.829 - Elevated white blood cell count, unspecified Oncology: Subj Interval history: Mr. Bingham is awake and alert this afternoon, watching television. He notes ongoing sternal and left chest pain. He notes that he has had chronic chest pain for twelve years. He states that this pain is different and radiates to his left jaw. The left chest pain is adjacent to his pacemaker and he states that he has never had pain there before. He states that the pain medication is helping with the pain. Mr. Bingham notes that he will have a stress test tomorrow. - Constitutional General appearance: cooperative, no acute distress - Head Head exam: Present: normal inspection, normocephalic - Respiratory Respiratory exam: Present: CTAB - Cardiovascular Cardiovascular exam: Present: RRR - GI/Abdominal GI/Abdominal exam: Present: normal bowel sounds, soft. Absent: tenderness - Extremities Exam Extremities exam: Present: normal inspection. Absent: pedal edema - Neurological Exam Neurological exam: Present: alert, oriented X3 - Psychiatric Psychiatric exam: Present: normal affect, normal mood - Skin Skin exam: Present: normal color Oncology: Obj Data - Labs CBC & Chem 7: 07/20/19 03:59 07/18/19 22:51 Consult Discharge Plan - Plan Referrals: Louisa Hendrickson MD [Primary Care Provider] - Inpatient Charges Provider: Dr. Lizzette Frausto <Nick Frausto - Last Filed: 07/21/19 08:30> Date of Encounter: 07/20/19 (1) Chest pain Current Visit: Yes Status: Acute Qualifiers: Chest pain type: unspecified Qualified Code(s): R07.9 - Chest pain, unspecified (2) Increased white blood cell count Current Visit: Yes Status: Acute Qualifiers: Leukocytosis type: unspecified Qualified Code(s): D72.829 - Elevated white blood cell count, unspecified Oncology: Obj Data - Labs CBC & Chem 7: 07/21/19 04:51 07/21/19 04:51 Inpatient Charges Follow up - Inpatient: [id number] - Attending Attestation I examined this patient and my medical decision-making was reviewed with the Advanced Practice Nurse. I agree with the documented findings, disposition and treatment plan as described except to the extent set forth below. Elevated neutrophil count 9000 in today mildly elevated lymphocyte count 4500. I like peripheral smear. Likely reactive. Peripheral blood flow cytometry results pending as well. Further recommendation after above workup. He does have a history of recurrent gingivitis Coronary artery disease with retrosternal chest pain. Stress test planned for tomorrow
--- NOTE | 2019-07-20 15:58 | Electrocardiograph Report ---
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
[2019-07-21] MEDS: *HR* OxyCODONE Immed Rel 5 MG TABLET PO PRN ×4 (00:55→20:58)
[2019-07-21] MEDS: *HR* Heparin 5,000 UNIT/ML VIAL SQ SCH ×2 (05:24→17:54)
[2019-07-21 05:34] LABS: Hematocrit 42.9 % (37.5-50.1); Mean Corpuscular HGB Conc 32.6 g/dL (31.6-35.5); Mean Corpuscular Hemoglobin 32.7 pg (28.0-33.3); Mean Corpuscular Volume 100.2 fL (83.0-100.0); Mean Platelet Volume 9.3 fL (9.4-12.4); Platelet Count 213 K/mcL (140-400); Red Blood Count 4.28 M/mcL (4.19-5.50); Red Cell Distribution Width 13.3 % (11.5-14.5); White Blood Count 16.4 K/mcL (4.3-11.1)
[2019-07-21 05:54] LABS: BUN/Creatinine Ratio 17 (6-26); Blood Urea Nitrogen 19 mg/dL (8-23); Calcium 9.1 mg/dL (8.6-10.3); Carbon Dioxide 27 mEq/L (23-29); Chloride 103 mEq/L (98-107); Glucose 115 mg/dL (70-105); Osmolality,Calculated 289 (280-300); Sodium 138 mEq/L (136-145); eGFR For African Americans > 60 (> 60); eGFR For Non-African Americans > 60 (> 60)
[2019-07-21] MEDS ORDERED: Regadenoson 0.4 MG/5 ML SYRINGE IVP ONE (06:00)
[2019-07-21] MEDS: Metoprolol XL (24 HR) Succ 50 MG TAB.ER.24H PO SCH (08:51)
[2019-07-21] MEDS: lamoTRIgine 100 MG TABLET PO SCH ×2 (08:51→21:00)
[2019-07-21] MEDS: Aspirin Enteric Coated 81 MG Tablet PO SCH (08:51)
[2019-07-21] MEDS: Ranolazine 500 MG TAB.ER.12H PO SCH ×2 (08:51→20:59)
[2019-07-21] MEDS: Finasteride 5 MG TABLET PO SCH (08:51)
[2019-07-21] MEDS: Gabapentin 300 MG CAPSULE PO SCH ×3 (08:51→20:59)
[2019-07-21] MEDS: Azithromycin 250 MG TABLET PO SCH (11:30)
--- NOTE | 2019-07-21 13:29 | Cardiology Progress Note ---
Date of Encounter: 07/21/19 Time of Encounter: 13:27 Assessment and Plan (1) Chest pain Current Visit: Yes Status: Acute Per cardiology: -Chest pain atypical. -Troponins negative x3. -04/2019 TTE with LVEF 65%, mild concentric LVH, no SWMA. TTE this admission with LVEF preserved, no SWMA. -No acute ischemic ECG changes noted. -Known CAD s/p [facility] 01/2019 with Left main angiographically free of disease. LAD is angiographically free of disease. 1st Diagonal is angiographically free of disease. 70% stenosis in the 1st Marginal with TROY placed. 30% instent stenosis in the Mid RCA. 60% stenosis in the Right PDA. -ON asa, statin, BB, plavix, ranexa, cardizem. -Stress test today negative for ischemia or infarct. -Stress test negative, recommend continued medical therapy. Will uptitrate BB for possible angina. -Of note, previously intolerant to imdur. -Cardiology will sign off, will arrange close outpatient follow up. -Of note, patient states he is getting tired of all of these medications and states he may just quit all of his meds. Patient educated on risk of UT, without cardiac medications. Qualifiers: Chest pain type: unspecified Qualified Code(s): R07.9 - Chest pain, unspecified (2) Pacemaker Current Visit: Yes Status: Acute Per cardiology: -Has known pacemaker. -Reports chest pain around pacemaker site. -CHest x-ray normal, CTA normal. -Reports "chriping" from pacemaker. -Device checked with normal function. Per [employer], patient's device does not make noises, beep, or chirp. (3) CAD (coronary artery disease) Current Visit: No Status: Chronic Per cardiology: -Known CAD s/p reportedly 17 stents. -LH as above. -On asa, statin, BB, plavix, ranexa, cardizem. -Will increase BB. -Dual anti-platelet therapy uninterrupted for at least one year from last PCI (01/2019). Qualifiers: Coronary Disease-Associated Artery/Lesion type: [place] artery [place] vs. transplanted heart: [place] heart Associated angina: without angina Qualified Code(s): I25.10 - Atherosclerotic heart disease of [place] coronary artery without angina pectoris Discussion w patient/family: The assessment and plan as outlined above was discussed with the patient who expressed understanding and agreement. All questions were answered. Thank you for involving us in the care of your patient. Please call with any questions. Discussed and reviewed with Subjective Principal diagnosis: chest pain Interval history: Patient denies current chest pain. Objective Vital Signs, Last 4 Hours Temp Pulse Resp BP Pulse Ox 07/21/19 10:45 97.5 F L 60 17 124/80 96 General: Conversant, No Apparent Distress HEENT: Atraumatic, Normocephaly, Mucus Membranes Moist Neck: No JVD, Normal carotid pulses Cardiac: Reg Rate and Rhythm, Normal S1 and S2, No Murmur Lungs: Normal Breath Sounds, No Wheeze, Rales, Rhonchi Neuro: Alert and responsive, No focal deficits noted Abdomen: Soft, Non-Tender Skin: No rashes noted on visualized skin Musculoskeletal: No Chest Wall Tenderness Extremities: No Clubbing, No Cyanosis, No Edema, Normal Pulses Results 07/21/19 04:51 07/21/19 04:51 Lab Results Active Medications Acetaminophen (Tylenol) 1,000 mg PO QPM REBECCA Stop: 01/18/20 18:01 Last Admin: 07/20/19 17:56 Dose: 1,000 mg Documented by: Aspirin (Aspirin Ec) 81 mg PO DAILY REBECCA Stop: 01/18/20 09:01 Last Admin: 07/21/19 08:51 Dose: 81 mg Documented by: Atorvastatin Calcium (Lipitor) 80 mg PO HS REBECCA Stop: 01/18/20 21:01 Last Admin: 07/20/19 20:02 Dose: 80 mg Documented by: Azithromycin (Zithromax) 500 mg PO Q24H REBECCA Stop: 01/19/20 12:46 Last Admin: 07/21/19 11:30 Dose: 500 mg Documented by: Clopidogrel Bisulfate (Plavix) 75 mg PO DAILY REBECCA Stop: 01/18/20 09:01 Last Admin: 07/21/19 08:51 Dose: 75 mg Documented by: Diltiazem HCl (Cardizem) 30 mg PO BID REBECCA Stop: 01/19/20 21:01 Last Admin: 07/21/19 08:51 Dose: 30 mg Documented by: Escitalopram Oxalate (Lexapro) 20 mg PO DAILY REBECCA Stop: 01/18/20 09:01 Last Admin: 07/21/19 08:51 Dose: 20 mg Documented by: Finasteride (Proscar) 5 mg PO DAILY [facility]; Protocol Stop: 01/20/20 09:01 Last Admin: 07/21/19 08:51 Dose: 5 mg Documented by: Gabapentin (Neurontin) 600 mg PO TID [facility] Stop: 01/18/20 09:01 Last Admin: 07/21/19 08:51 Dose: 600 mg Documented by: Heparin Sodium (Porcine) (Heparin) 5,000 unit SQ Q12HCO [facility]; Protocol Stop: 01/18/20 18:01 Last Admin: 07/21/19 05:24 Dose: 5,000 unit Documented by: Labetalol HCl (Labetalol) 10 mg IVP Q1H PRN PRN Reason: Systolic >180, Diastolic >110 Stop: 01/18/20 01:53 Last Admin: 07/19/19 02:35 Dose: 10 mg Documented by: Lamotrigine (Lamictal) 100 mg PO BID [facility] Stop: 01/18/20 09:01 Last Admin: 07/21/19 08:51 Dose: 100 mg Documented by: Metoprolol Succinate (Toprol Xl) 75 mg PO DAILY [facility] Stop: 01/21/20 09:01 Naloxone HCl (Narcan) 0.4 mg IVP Q2MPRN PRN PRN Reason: SEE COMMENTS Stop: 01/18/20 02:24 Omeprazole (Prilosec) 40 mg PO QPM [facility] Stop: 01/18/20 18:01 Last Admin: 07/20/19 17:56 Dose: 40 mg Documented by: Ondansetron HCl (Zofran Odt) 4 mg SL Q8HR PRN PRN Reason: Nausea And Vomiting Stop: 01/18/20 02:24 Oxycodone HCl (Roxicodone) 2.5 mg PO Q4HR PRN; Protocol PRN Reason: mild to moderate pain Stop: 01/19/20 08:54 Last Admin: 07/21/19 09:02 Dose: 2.5 mg Documented by: Oxycodone HCl (Oxycodone Oral Conc) 5 mg SL Q6HR PRN; Protocol PRN Reason: Severe Pain Stop: 01/18/20 03:47 Last Admin: 07/21/19 11:30 Dose: 5 mg Documented by: Ranolazine (Ranexa) 1,000 mg PO BID [facility] Stop: 01/18/20 09:01 Last Admin: 07/21/19 08:51 Dose: 1,000 mg Documented by: Tamsulosin HCl (Flomax) 0.4 mg PO DAILY [facility]; Protocol Stop: 01/20/20 09:01 Last Admin: 07/21/19 08:51 Dose: 0.4 mg Documented by: Laboratory Tests 07/21/19 07/21/19 04:51 04:51 WBC 16.4 H Hgb 14.0 Creatinine 1.11 - Imaging and Cardiology Chest Xray: report reviewed Stress Test: report reviewed Echo: report reviewed Cardiac cath: report reviewed - EKG Interpretation EKG results cardiology: other (Telemetry reviewed with average HR previous 12 hours noted to be 60, SR with intermittent paced rhythm.) Consult Discharge Plan - Plan Referrals: Louisa Hendrickson MD [Primary Care Provider] -
--- NOTE | 2019-07-21 13:57 | Oncology Inp Progress Note ---
<Naye Sewell - Last Filed: 07/21/19 14:02> Date of Encounter: 07/21/19 Time of Encounter: 13:54 (1) Chest pain Current Visit: Yes Status: Acute Assessment and plan: History of coronary artery disease. Cardiology consult noted. He is going to have further ischemic evaluation for retrosternal chest pain Chest pain persists. Mild relief from oxycodone. Cardiac stress test complete. Impression: No definite evidence for ischemia or infarct on myocardial perfusion imaging. Clinical correlation is advised. Pharmacologic stress ECG is non diagnostic for ischemia due to baseline non-specific ST and T changes. No arrhythmias noted with stress. Gated EF = >70%. Qualifiers: Chest pain type: unspecified Qualified Code(s): R07.9 - Chest pain, unspecified (2) Leukocytosis Current Visit: Yes Status: Acute Assessment and plan: WBC 16.4 (peaked at 19.6) and declining slowly Leukocytosis. Neutrophil count 9400 monocyte count 2800. His neutrophils ranged between 3437-3340 in the past to April 2019. 20% immature granulocyte Most likely this is reactive from chest pain/ACS. Flow cytometry collected. Results pending. Peripheral smear: Erythrocytes: Unremarkable red cell indices and morphology. Platelets: Platelets are adequate. Leukocytes: Automated differential confirmed on manual review. Left-shifted granulocytosis with increased monocytes. Rare circulating blasts (2% of leukocytes). Correlation with bone marrow biopsy, cytogenetics and molecular studies is recommended. Plan for bone marrow biopsy 07/22/19 and NPO at midnight - orders placed. Discussed with hospitalist. Qualifiers: Qualified Code(s): D72.829 - Elevated white blood cell count, unspecified Oncology: Subj Interval history: Mr. Bingham is awake and alert. He notes that he had his cardiac stress test this morning and that it was "fine." He continues with intermittent chest pain, but appears comfortable in bed this afternoon. Discussed peripheral smear noting rare 2% blasts and recommendation for bone marrow biopsy. Discussed procedure with patient and open to biopsy tomorrow. Informed that he will be NPO after midnight and verbalizes understanding. - Constitutional General appearance: cooperative, no acute distress - Head Head exam: Present: normal inspection, normocephalic - Extremities Exam Extremities exam: Present: normal capillary refill, normal inspection. Absent: pedal edema, tenderness - Neurological Exam Neurological exam: Present: alert, oriented X3. Absent: facial droop, speech deficit - Psychiatric Psychiatric exam: Present: normal affect, normal mood - Skin Skin exam: Present: normal color, warm Oncology: Obj Data - Labs CBC & Chem 7: 07/21/19 04:51 07/21/19 04:51 Consult Discharge Plan - Plan Referrals: Louisa Hendrickson MD [Primary Care Provider] - Inpatient Charges Provider: Dr. Lizzette Frausto <Nick Frausto S - Last Filed: 07/22/19 17:04> Date of Encounter: 07/21/19 (1) Chest pain Current Visit: Yes Status: Acute Qualifiers: Chest pain type: unspecified Qualified Code(s): R07.9 - Chest pain, unspecified (2) Increased white blood cell count Current Visit: Yes Status: Acute Qualifiers: Leukocytosis type: unspecified Qualified Code(s): D72.829 - Elevated white blood cell count, unspecified Oncology: Obj Data - Labs CBC & Chem 7: 07/22/19 03:51 07/22/19 03:51 Inpatient Charges Provider: Dr. Lizzette Frausto Follow up - Inpatient: [id number] - Attending Attestation I examined this patient and my medical decision-making was reviewed with the Advanced Practice Nurse. I agree with the documented findings, disposition and treatment plan as described except to the extent set forth below. Persistent leukocytosis since April 2019. Peripheral smear showed 2% blasts. Flow cytometry pending. Discussed with patient in detail and bone marrow biopsy interventional radiology ordered and performed on 07/22/2019 Retrosternal chest pain. Pharmacologic stress testing performed as mentioned. Ejection fraction 70%.
--- NOTE | 2019-07-21 16:23 | Internal Med Progress Note ---
Hospitalist Progress Note - Encounter Date of Encounter: 07/21/19 Time of Encounter: 09:00 - Subjective Interval History: Mr Bingham and is to complain of chest pain which he described as substernal. He stated he has had 17 stents is currently being evaluated by the gold nib grinder. His stress test was negative per report. Per discussion with the oncology team patient's peripheral blood smear was questionable, as such plan to have a bone marrow biopsy tomorrow. He does admit to a history of reflux but denies having any current flare of his reflux symptoms he has never had an EGD. GEN: Denies fever, chills or malaise HEENT: Denies headache blurriness, or dysphagia RESP: Denies SOB or cough CV: Admits to chest pain denies palpitations GI: Denies Nausea, vomiting, diarrhea or constipation Reviewed current in hospital medications with modifications see orders Reviewed Routine labs - Exam Vitals: Temp Pulse Resp BP Pulse Ox 97.5 F L 60 17 105/63 97 07/21/19 15:37 07/21/19 15:37 07/21/19 15:37 07/21/19 15:37 07/21/19 15:37 Exam: GEN: NAD, A&O x 3, Pleasant and conversant SKIN: [place] warm acyanotic not jaundice HEART: RRR, no murmurs LUNGS: CTA no wheeze or crackles, overall non labored ABDOMEN; Soft, non tender or distended, BS x 4 normactive EXT: No LE edema, Pedal pulses 1+, radial pulses 2+ PSYCH: Mood and affect is appropriate - Assessment and Plan (1) Leukocytosis Current Visit: Yes Status: Acute Assessment and Plan: per discussion with the oncology team his peripheral smear was questionable the recommended bone marrow biopsy tomorrow, he is afebrile procalcitonin 2 is negative as such very unlikely to be bacterial infection hematologic malignancy high on differentiated, upon review of his home medication no recent steroid therapy either will discontinue azithromycin (2) Chest pain Current Visit: Yes Status: Acute Assessment and Plan: Ischemic workup has been unrevealing troponin 3 was negative although patient claims he has had prior multiple left heart catheter with PCI with 17 stents and seems to correlate these symptoms to be cardiac origin. per cardiology consult note patient does have documented CAD with a recent left heart cath January 2019- Left main angiographically free of disease. LAD is angiographically free of disease. 1st Diagonal is angiographically free of disease. 70% stenosis in the 1st Marginal with TROY placed. 30% instent stenosis in the Mid RCA. 60% stenosis in the Right PDA.-ON asa, statin, BB, plavix, ranexa, cardizem. His pacemaker was interrogated and appears to be functioning just fine per cardiology note (3) CAD (coronary artery disease) Current Visit: Yes Status: Chronic Assessment and Plan: CAD with a recent left heart cath January 2019-Left main angiographically free of disease. LAD is angiographically free of disease. 1st Diagonal is angiographically free of disease. 70% stenosis in the 1st Marginal with TROY placed. 30% instent stenosis in the Mid RCA. 60% stenosis in the Right PDA.-ON asa, statin, BB, plavix, ranexa, cardizem. He continues to complain of chest pain however appears quite comfortable laying in bed. Troponin 3 was negative vital stable we will continue to optimize medical management (4) HTN (hypertension) Current Visit: Yes Status: Chronic Assessment and Plan: Normotensive continue current therapy (5) HLD (hyperlipidemia) Current Visit: No Status: Chronic (6) History of CVA (cerebrovascular accident) Current Visit: No Status: Resolved Assessment and Plan: on aspirin, high intensity statin and Plavix. (7) Depression Current Visit: Yes Status: Chronic Assessment and Plan: Stable on chronic (8) DVT prophylaxis Current Visit: Yes Status: Acute Assessment and Plan: On heparin subcutaneous - Time Spent with Patient Total time spent is greater than 50% in coordination of care (as documented) at patient's floor/unit and/or counseling patient: Internal Medicine: Result - Labs CBC & Chem 7: 07/21/19 04:51 07/21/19 04:51 Labs: Short CBC 07/21/19 Range/Units 04:51 WBC 16.4 H (4.3-11.1) K/mcL Hgb 14.0 (12.9-16.9) g/dL Hct 42.9 (37.5-50.1) % Plt Count 213 (140-400) K/mcL BMP 07/21/19 04:51 Sodium 138 Potassium 4.0 Chloride 103 Carbon Dioxide 27 BUN 19 Creatinine 1.11 Glucose 115 H Calcium 9.1 - ABG Interpretation ABG results: PT/INR, D-dimer PT 12.6 Seconds (9.4-12.1) H 07/19/19 03:09 Consult Discharge Plan - Plan Referrals: Louisa Hendrickson MD [Primary Care Provider] - (1) Leukocytosis Qualifiers: Qualified Code(s): D72.829 - Elevated white blood cell count, unspecified (2) Chest pain Qualifiers: Chest pain type: unspecified Qualified Code(s): R07.9 - Chest pain, unspecified (3) CAD (coronary artery disease) Qualifiers: Coronary Disease-Associated Artery/Lesion type: [place] artery [place] vs. transplanted heart: [place] heart Associated angina: without angina Qualified Code(s): I25.10 - Atherosclerotic heart disease of [place] coronary artery without angina pectoris (4) HTN (hypertension) Qualifiers: Hypertension type: essential hypertension Qualified Code(s): I10 - Essential (primary) hypertension (5) HLD (hyperlipidemia) Qualifiers: Hyperlipidemia type: mixed hyperlipidemia Qualified Code(s): E78.2 - Mixed hyperlipidemia (7) Depression Qualifiers: Depression Type: major depressive disorder Major depression recurrence: unspecified whether recurrent Active/Remission status: currently active Psychotic features: without psychotic features
[2019-07-22] MEDS: *HR* OxyCODONE Immed Rel 5 MG TABLET PO PRN ×4 (03:37→21:18)
[2019-07-22 04:49] LABS: Hematocrit 42.3 % (37.5-50.1); Hemoglobin 14.1 g/dL (12.9-16.9); Mean Corpuscular HGB Conc 33.3 g/dL (31.6-35.5); Mean Corpuscular Hemoglobin 32.7 pg (28.0-33.3); Mean Corpuscular Volume 98.1 fL (83.0-100.0); Mean Platelet Volume 9.5 fL (9.4-12.4); Platelet Count 216 K/mcL (140-400); Red Blood Count 4.31 M/mcL (4.19-5.50); Red Cell Distribution Width 13.1 % (11.5-14.5)
[2019-07-22 05:14] LABS: BUN/Creatinine Ratio 20 (6-26); Blood Urea Nitrogen 20 mg/dL (8-23); Calcium 9.2 mg/dL (8.6-10.3); Carbon Dioxide 23 mEq/L (23-29); Chloride 103 mEq/L (98-107); Glucose 100 mg/dL (70-105); Osmolality,Calculated 285 (280-300); Sodium 136 mEq/L (136-145); eGFR For African Americans > 60 (> 60); eGFR For Non-African Americans > 60 (> 60)
[2019-07-22] MEDS: *HR* Heparin 5,000 UNIT/ML VIAL SQ SCH ×2 (06:03→16:59)
[2019-07-22] MEDS: Ranolazine 500 MG TAB.ER.12H PO SCH ×2 (07:57→21:36)
[2019-07-22] MEDS: Metoprolol XL (24 HR) Succ 50 MG TAB.ER.24H PO SCH (07:57)
[2019-07-22] MEDS: Aspirin Enteric Coated 81 MG Tablet PO SCH (07:57)
[2019-07-22] MEDS: Finasteride 5 MG TABLET PO SCH (07:57)
[2019-07-22] MEDS: Gabapentin 300 MG CAPSULE PO SCH ×3 (07:57→21:36)
[2019-07-22] MEDS: lamoTRIgine 100 MG TABLET PO SCH ×2 (07:58→21:35)
[2019-07-22] MEDS ORDERED: Lactulose Oral Soln 20 GM/30 ML UDC PO ONE ×2 (08:58→16:00)
[2019-07-22] MEDS ORDERED: *HR* Midazolam HCl 2 MG/2 ML VIAL IVP ONE (15:00)
[2019-07-22] MEDS ORDERED: *HR* FentaNYL (PF) 100 MCG/2 ML VIAL IVP ONE (15:00)
[2019-07-22] MEDS ORDERED: *HR* FentaNYL (PF) 100 MCG/2 ML VIAL ONE (15:05)
[2019-07-22] MEDS ORDERED: *HR* Midazolam HCl 2 MG/2 ML VIAL ONE (15:05)
--- NOTE | 2019-07-22 15:34 | Pre-Sedation Evaluation ---
Pre-sedation evaluation - Pre-sedation checklist Date of procedure: 07/22/19 Procedure: bmb Recent Vitals: Last Vital Signs Temp 98.6 F 07/22/19 11:29 Pulse 59 07/22/19 15:26 Resp 10 07/22/19 15:26 BP 102/73 07/22/19 15:26 Pulse Ox 93 07/22/19 15:26 H&P (including ROS) documented in medical record: Yes Previous reaction to sedatives/anesthetics: No Dietary Status: NPO after Midnight Airway Assessment: Patient can open mouth completely, TMJ function normal, Micrognathia (under-bite, receding chin) absent, Neck with adequate range of mot ion ASA Classification *see protocol: CLASS II-Mild systemic disease Plan of Care: Pt appropriate candidate for procedure/moderate/conscious sedation, Risks/benefits of procedure/sedation discussed w/ patient/family, If not NPO; Risk of intake outweiged by necessity to perform procedure
--- NOTE | 2019-07-22 15:34 | IR Procedure Note ---
Date of procedure: 07/22/19 Consent Obtained: Verbal consent, Written consent Timeout: Correct patient and procedure verified, Correct site verified, Time out performed, Skin prep completed Local anesthetic: Lidocaine 1% Was there an miner assistant present: No Estimated blood loss (cc): 2 Complications: None; Tolerated procedure well Procedure Performed: bone marrow biopsy of right iliac bone Specimen: core and aspirate
--- NOTE | 2019-07-22 16:03 | Internal Med Progress Note ---
Hospitalist Progress Note - Encounter Date of Encounter: 07/22/19 Time of Encounter: 16:01 - Subjective Interval History: Mr Bingham is status post bone marrow biopsy. He is requesting to spend one more night citing he does not feel quite well status post procedure. Per discussion with oncology team he should follow-up as an outpatient to discuss th e results. Mr. Bingham stated that he is yancey and has lost a bunch of friends to HIV AIDS as such he is requesting to be tested for HIV. Would also like to get a flu shot prior to discharge GEN: Denies fever, chills or malaise HEENT: Denies headache blurriness, or dysphagia RESP: Denies SOB or cough CV: Denies chest pain or palpitations GI: Denies Nausea, vomiting, diarrhea or constipation Reviewed current in hospital medications with modifications see orders Reviewed Routine labs - Exam Vitals: Temp Pulse Resp BP Pulse Ox 98.6 F 59 10 102/73 93 07/22/19 11:29 07/22/19 15:26 07/22/19 15:26 07/22/19 15:26 07/22/19 15:26 Exam: GEN: NAD, A&O x 3, Pleasant and conversant SKIN: [place] warm acyanotic not jaundice HEART: RRR somewhat bradycardic, no murmurs LUNGS: CTA no wheeze or crackles, overall non labored ABDOMEN; Soft, non tender or distended, BS x 4 normactive EXT: No LE edema, Pedal pulses 1+, radial pulses 2+ PSYCH: Mood and affect is appropriate - Assessment and Plan (1) Leukocytosis Current Visit: Yes Status: Acute Assessment and Plan: per discussion with the oncology team his peripheral smear was questionable the recommended bone marrow biopsy which was done today, a stable post procedure however he request to spend one more night. Patient now states that he is homosexual and has lost a bunch of friends to HIV AIDS as such she is requesting to be tested for HIV. Order has been placed. he is afebrile procalcitonin 2 is negative as such very unlikely to be bacterial infection hematologic malign leeann high on differentiated, upon review of his home medication no recent steroid therapy either clinically he does not appear to be acutely ill afebrile (2) Chest pain Current Visit: Yes Status: Acute Assessment and Plan: Ischemic workup has been unrevealing troponin 3 was negative although patient claims he has had prior multiple left heart catheter with PCI with 17 stents and seems to correlate these symptoms to be cardiac origin. per cardiology consult note patient does have documented CAD with a recent left heart cath January 2019- Left main angiographically free of disease. LAD is angiographically free of disease. 1st Diagonal is angiographically free of disease. 70% stenosis in the 1st Marginal with TROY placed. 30% instent stenosis in the Mid RCA. 60% stenosis in the Right PDA.-ON asa, statin, BB, plavix, ranexa, cardizem. His pacemaker was interrogated and appears to be functioning just fine per cardiology note (3) CAD (coronary artery disease) Current Visit: Yes Status: Chronic Assessment and Plan: CAD with a recent left heart cath January 2019-Left main angiographically free of disease. LAD is angiographically free of disease. 1st Diagonal is angio graphically free of disease. 70% stenosis in the 1st Marginal with TROY placed. 30% instent stenosis in the Mid RCA. 60% stenosis in the Right PDA.-ON asa, statin, BB, plavix, ranexa, cardizem. He continues to complain of chest pain however appears quite comfortable laying in bed. Troponin 3 was negative vital stable we will continue to optimize medical management (4) HTN (hypertension) Current Visit: Yes Status: Chronic Assessment and Plan: Normotensive continue current therapy (5) HLD (hyperlipidemia) Current Visit: Yes Status: Chronic Assessment and Plan: On high-dose statin therapy with atorvastatin 80 (6) Depression Current Visit: Yes Status: Chronic Assessment and Plan: Stable on chronic (7) DVT prophylaxis Current Visit: Yes Status: Acute Assessment and Plan: On heparin subcutaneous - Time Spent with Patient Total time spent is greater than 50% in coordination of care (as documented) at patient's floor/unit and/or counseling patient: Internal Medicine: Result - Labs CBC & Chem 7: 07/22/19 03:51 07/22/19 03:51 Labs: Short CBC 07/22/19 Range/Units 03:51 WBC 21.0 H (4.3-11.1) K/mcL Hgb 14.1 (12.9-16.9) g/dL Hct 42.3 (37.5-50.1) % Plt Count 216 (140-400) K/mcL BMP 07/22/19 03:51 Sodium 136 Potassium 4.0 Chloride 103 Carbon Dioxide 23 BUN 20 Creatinine 0.99 Glucose 100 Calcium 9.2 - ABG Interpretation ABG results: PT/INR, D-dimer PT 12.6 Seconds (9.4-12.1) H 07/19/19 03:09 - Impressions Impressions Bone Marrow Biopsy w/ CT 07/22/19 00:00 IMPRESSION: Successful CT guided bone marrow aspiration and core biopsy of the iliac bone. D/ / Juan Juarez MD / Juna Juarez MD Interpreting Provider: Juan Juarez MD Consult Discharge Plan - Plan Referrals: Louisa Hendrickson MD [Primary Care Provider] - (1) Leukocytosis Qualifiers: Qualified Code(s): D72.829 - Elevated white blood cell count, unspecified (2) Chest pain Qualifiers: Chest pain type: unspecified Qualified Code(s): R07.9 - Chest pain, unspecified (3) CAD (coronary artery disease) Qualifiers: Coronary Disease-Associated Artery/Lesion type: [place] artery [place] vs. transplanted heart: [place] heart Associated angina: without angina Qualified Code(s): I25.10 - Atherosclerotic heart disease of [place] coronary artery without angina pectoris (4) HTN (hypertension) Qualifiers: Hypertension type: essential hypertension Qualified Code(s): I10 - Essential (primary) hypertension (5) HLD (hyperlipidemia) Qualifiers: Hyperlipidemia type: mixed hyperlipidemia Qualified Code(s): E78.2 - Mixed hyperlipidemia (6) Depression Qualifiers: Depression Type: major depressive disorder Major depression recurrence: unspecified whether recurrent Active/Remission status: currently active Psychotic features: without psychotic features
[2019-07-23 04:41] LABS: Hematocrit 42.9 % (37.5-50.1); Hemoglobin 14.2 g/dL (12.9-16.9); Mean Corpuscular HGB Conc 33.1 g/dL (31.6-35.5); Mean Corpuscular Hemoglobin 32.8 pg (28.0-33.3); Mean Corpuscular Volume 99.1 fL (83.0-100.0); Mean Platelet Volume 9.9 fL (9.4-12.4); Platelet Count 211 K/mcL (140-400); Red Blood Count 4.33 M/mcL (4.19-5.50); Red Cell Distribution Width 12.9 % (11.5-14.5); White Blood Count 25.3 K/mcL (4.3-11.1)
[2019-07-23] MEDS: *HR* Heparin 5,000 UNIT/ML VIAL SQ SCH (04:45)
[2019-07-23 04:57] LABS: BUN/Creatinine Ratio 16 (6-26); Blood Urea Nitrogen 18 mg/dL (8-23); Calcium 9.2 mg/dL (8.6-10.3); Carbon Dioxide 20 mEq/L (23-29); Chloride 103 mEq/L (98-107); Glucose 122 mg/dL (70-105); Magnesium 1.9 mg/dL (1.6-2.6); Osmolality,Calculated 279 (280-300); Potassium 4.1 mEq/L (3.5-5.1); Sodium 133 mEq/L (136-145); eGFR For African Americans > 60 (> 60); eGFR For Non-African Americans > 60 (> 60)
[2019-07-23] MEDS: *HR* OxyCODONE Immed Rel 5 MG TABLET PO PRN (05:54)
[2019-07-23 07:49] VITALS: BP 102/65
[2019-07-23] MEDS: lamoTRIgine 100 MG TABLET PO SCH (08:41)
[2019-07-23] MEDS: Aspirin Enteric Coated 81 MG Tablet PO SCH (08:41)
[2019-07-23] MEDS: Ranolazine 500 MG TAB.ER.12H PO SCH (08:41)
[2019-07-23] MEDS: Metoprolol XL (24 HR) Succ 50 MG TAB.ER.24H PO SCH (08:41)
[2019-07-23] MEDS: Finasteride 5 MG TABLET PO SCH (08:42)
[2019-07-23] MEDS: Gabapentin 300 MG CAPSULE PO SCH (08:42)
--- NOTE | 2019-07-23 09:45 | Discharge Summary ---
- NOTES TO OUTPATIENT PROVIDER Notes to Outpatient Provider: Posthospital discharge for chest pain acute coronary syndrome rule out however work up for ischemia was negative troponin. His CBC does reveal leukocytosis with negative pro-calcitonin afebrile as such hematologic malignancy workup was initiated patient is status post bone marrow biopsy with cytology pending. He needs to follow-up with oncology upon discharge Orders not resulted at time of discharge: Pending orders 07/19/19 17:53 Peripheral Bld Flow Routine 07/22/19 15:28 Bone Marrow, Flow & Cytogen Routine Date of Encounter: 07/23/19 Time of Encounter: 09:42 - Discharge Diagnosis (1) Leukocytosis Priority: Primary Status: Acute Assessment and Plan: per discussion with the oncology team his peripheral smear was questionable the recommended bone marrow biopsy which was done today, a stable post procedure however he request to spend one more night. Patient now states that he is homosexual and has lost a bunch of friends to HIV AIDS as such she is requesting to be tested for HIV. Order has been placed HIV screen was negative. he remains afebrile procalcitonin 2 is negative as such very unlikely to be bacterial infection hematologic malignancy high on differentiated, upon review of his home medication no recent steroid therapy either clinically he does not appear to be acutely ill afebrile. His leukocytosis continued to trend up 16.4-21-25.3 at discharge he is to follow-up with oncology to discuss results of the bone marrow biopsy as well as cytology. high threshold for lymphoma Qualifiers: Qualified Code(s): D72.829 - Elevated white blood cell count, unspecified (2) Chest pain Priority: Primary Status: Acute Assessment and Plan: Ischemic workup has been unrevealing troponin 3 was negative although patient claims he has had prior multiple left heart catheter with PCI with 17 stents and seems to correlate these symptoms to be cardiac origin. per cardiology consult note patient does have documented CAD with a recent left heart cath January 2019- Left main angiographically free of disease. LAD is angiographically free of disease. 1st Diagonal is angiographically free of disease. 70% stenosis in the 1st Marginal with TROY placed. 30% instent stenosis in the Mid RCA. 60% stenosis in the Right PDA.-ON asa, statin, BB, plavix, ranexa, cardizem. His pacemaker was interrogated and appears to be functioning just fine per cardiology note Qualifiers: Chest pain type: unspecified Qualified Code(s): R07.9 - Chest pain, unspecified (3) CAD (coronary artery disease) Priority: Secondary Status: Chronic Assessment and Plan: CAD with a recent left heart cath January 2019-Left main angiographically free of disease. LAD is angiographically free of disease. 1st Diagonal is angiographically free of disease. 70% stenosis in the 1st Marginal with TROY placed. 30% instent stenosis in the Mid RCA. 60% stenosis in the Right PDA.-ON asa, statin, BB, plavix, ranexa, cardizem. He continues to complain of chest pain however appears quite comfortable laying in bed. Troponin 3 was negative vital stable we will continue to optimize medical management Qualifiers: Coronary Disease-Associated Artery/Lesion type: [place] artery [place] vs. transplanted heart: [place] heart Associated angina: without angina Qualified Code(s): I25.10 - Atherosclerotic heart disease of [place] coronary artery without angina pectoris (4) HTN (hypertension) Priority: Secondary Status: Chronic Assessment and Plan: Normotensive continue current therapy Qualifiers: Hypertension type: essential hypertension Qualified Code(s): I10 - Essential (primary) hypertension (5) HLD (hyperlipidemia) Priority: Secondary Status: Chronic Assessment and Plan: On high-dose statin therapy with atorvastatin 80 Qualifiers: Hyperlipidemia type: mixed hyperlipidemia Qualified Code(s): E78.2 - Mixed hyperlipidemia (6) Depression Priority: Secondary Status: Chronic Assessment and Plan: Stable on chronic Qualifiers: Depression Type: major depressive disorder Major depression recurrence: unspecified whether recurrent Active/Remission status: currently active Psychotic features: without psychotic features Qualified Code(s): F32.2 - Major depressive disorder, single episode, severe without psychotic features (7) DVT prophylaxis Priority: Secondary Status: Acute Assessment and Plan: On heparin subcutaneous, discharged today Hospital course: Mr. Bingham is a 64 year old male hospitalized for acute coronary syndrome rule out up a presented with chest pain. Troponin was negative he was followed by bath tester. Workup revealed leukocytosis patient is afebrile with 2 separate negative procalcitonin. As such hematology consult was placed patient is status post bone marrow biopsy is to follow-up with the oncologist to discuss the results. He is otherwise asymptomatic but continues to complain of substernal chest pain of note he is already on a PPI Discharge discussed with: patient, nurse, social work, case management - Time Spent with Patient Total time spent providing and/or coordinating discharge services: 36 mins Specific discharge activities: Please make sure you follow up with the hematol ogist to discuss the results of your bone marrow biopsy. Please take all your medications as prescribed and keep up with your outpatient cardiology follow-up as well as your routine primary care follow-up - Discharge Medications Prescriptions: New Diltiazem [Cardizem] 30 mg PO BID #60 tablet Polyethylene Glycol 3350 [MiraLAX] 17 gm PO DAILY 30 Days #527 powd.pack OxyCODONE Immed Rel [Roxicodone 5 MG] 5 mg PO Q4HR PRN 7 Days #30 tablet PRN Reason: Severe Pain Metoprolol XL (24 HR) Succ [Toprol XL] 75 mg PO DAILY 30 Days #90 tab.er.24h Continued Pantoprazole Sodium [Protonix] 40 mg PO QPM Tamsulosin [Flomax] 0.4 mg PO DAILY Ranolazine [Ranexa] 1,000 mg PO BID lamoTRIgine [Lamictal] 100 mg PO BID Gabapentin [Neurontin] 600 mg PO TID Finasteride [Proscar] 5 mg PO DAILY Atorvastatin [Lipitor] 80 mg PO HS 30 Days #30 tablet Clopidogrel [Plavix] 75 mg PO DAILY Tizanidine HCl 4 mg PO BID PRN PRN Reason: MUSCLE SPASMS Aspirin [Adult Aspirin Regimen] 81 mg PO DAILY Cholecalciferol (Vitamin D3) [Vitamin D3] 6,000 unit PO DAILY Escitalopram [Lexapro] 20 mg PO DAILY Acetaminophen [Tylenol] 1,000 mg PO QPM Carboxymethylcellulose Sodium [Refresh Tears] 1 drop BOTH EYES PRN PRN PRN Reason: Dry Eye(S) Discontinued Vitamin E 1,000 unit PO DAILY Diltiazem [Cardizem] 30 mg PO DAILY Metoprolol XL (24 HR) Succ [Toprol Xl] 50 mg PO DAILY #30 tab.er.24h Home Medications: Finasteride [Proscar] 5 mg PO DAILY 08/14/18 [History] Gabapentin [Neurontin] 600 mg PO TID 08/14/18 [History] Pantoprazole Sodium [Protonix] 40 mg PO QPM 08/14/18 [History] Ranolazine [Ranexa] 1,000 mg PO BID 08/14/18 [History] Tamsulosin [Flomax] 0.4 mg PO DAILY 08/14/18 [History] lamoTRIgine [Lamictal] 100 mg PO BID 08/14/18 [History] Atorvastatin [Lipitor] 80 mg PO HS 30 Days #30 tablet 08/19/18 [Rx] Clopidogrel [Plavix] 75 mg PO DAILY 01/24/19 [History] Tizanidine HCl 4 mg PO BID PRN 01/24/19 [History] Acetaminophen [Tylenol] 1,000 mg PO QPM 03/03/19 [History] Aspirin [Adult Aspirin Regimen] 81 mg PO DAILY 03/03/19 [History] Cholecalciferol (Vitamin D3) [Vitamin D3] 6,000 unit PO DAILY 03/03/19 [History] Escitalopram [Lexapro] 20 mg PO DAILY 03/03/19 [History] Carboxymethylcellulose Sodium [Refresh Tears] 1 drop BOTH EYES PRN PRN 07/19/19 [History] Diltiazem [Cardizem] 30 mg PO BID #60 tablet 07/23/19 [Rx] Metoprolol XL (24 HR) Succ [Toprol XL] 75 mg PO DAILY 30 Days #90 tab.er.24h 07/23/19 [Rx] OxyCODONE Immed Rel [Roxicodone 5 MG] 5 mg PO Q4HR PRN 7 Days #30 tablet 07/23/19 [Rx] Polyethylene Glycol 3350 [MiraLAX] 17 gm PO DAILY 30 Days #527 powd.pack 07/23/19 [Rx] Allergies/Adverse Reactions: Allergy/AdvReac Type Severity Reaction Status Date / Time sumatriptan [From Imitrex] Allergy Anaphylaxis Verified 07/19/19 16:30 hydrochlorothiazide AdvReac Vomiting Verified 07/19/19 16:30 nitroglycerin AdvReac Vomiting Verified 07/19/19 16:30 Date of admission: 07/20/19 12:44 Primary care physician: Louisa Hendrickson MD Consults: 07/19/19 02:39 Consult to Cardiology [CONS] Routine Comment: Consulting Provider: [facility] Reason for Consult: stabbing chest pain around pacemaker. troponin negative. Patient called Dr. Aquino whom told him to go to ED. Call Completed: No 07/19/19 06:00 Consult to Oncology Hematology [CONS] Routine Consulting Provider: [facility] Reason for Consult: Immature granulocyte leukocytosis with lymphadenopathy concerning for CLL. Peripheral smear pending. Call Completed: No 07/21/19 13:52 Consult to Interventional Radiology [CONS] Routine Consulting Provider: Radiology [facility] Reason for Consult: Ct-guided bone marrow aspirate and biopsy Time Notified: 13:52 Call Completed: Yes Discharging clinician: Robbin Becerra Anticipated date of discharge: 07/23/19 - Constitutional Vitals: Temp Pulse Resp BP Pulse Ox 99.4 F 60 18 102/65 95 07/23/19 07:46 07/23/19 07:46 07/23/19 07:46 07/23/19 07:46 07/23/19 07:46 Exam: GEN: NAD, A&O x 3, Pleasant and conversant SKIN: [place] warm acyanotic not jaundice HEART: RRR, no murmurs LUNGS: CTA no wheeze or crackles, overall non labored ABDOMEN; Soft, non tender or distended, BS x 4 normactive EXT: No LE edema, Pedal pulses 1+, radial pulses 2+ PSYCH: Mood and affect is appropriate - Patient Status Disposition: Home, Self-Care Condition: Good Functional capacity at discharge: independent ambulation Overall status at discharge: patient is back to baseline - Discharge Instructions Instructions: Chest Pain (DC) Follow Up With: Louisa Hendrickson MD [Primary Care Provider] - Nick Frausto MD [Partnered Physician] - - Diet and Activity Activity: resume usual activities as tolerated Diet: low fat, low cholesterol, low salt diet
[2019-07-23] MEDS ORDERED: FLU Vac QV 19-20 (6Month+)/PF 0.5 ML SYRINGE IM ONE (10:26)
== END 2019-07-23 14:07 | disposition home or self-care (01) | DRG 841 ==
LOC: EMEROOARM 22:08 → 2ANU 22:08 → SUATTDRO 07-20 12:44
PROVIDERS: ADMIT Internal Medicine; ATTEND Pharmacist

== ENCOUNTER 2019-09-04 19:11 | Observation (INO) ==
[2019-09-04] MEDS ORDERED: *HR* HYDROmorphone (PF) 1 MG/ML SYRINGE IVP ONE (23:53)
[2019-09-05 01:42] LABS: Red Cell Distribution Width 13.7 % (11.5-14.5)
[2019-09-05 01:44] LABS: Hematocrit 39.3 % (37.5-50.1); Hemoglobin 13.3 g/dL (12.9-16.9); Mean Corpuscular HGB Conc 33.8 g/dL (31.6-35.5); Mean Corpuscular Hemoglobin 32.7 pg (28.0-33.3); Mean Corpuscular Volume 96.6 fL (83.0-100.0); Mean Platelet Volume 9.1 fL (9.4-12.4); Platelet Count 316 K/mcL (140-400); Red Blood Count 4.07 M/mcL (4.19-5.50); White Blood Count 28.6 K/mcL (4.3-11.1)
[2019-09-05 01:59] LABS: BUN/Creatinine Ratio 13 (6-26); Blood Urea Nitrogen 16 mg/dL (8-23); Calcium 8.6 mg/dL (8.6-10.3); Carbon Dioxide 20 mEq/L (23-29); Chloride 109 mEq/L (98-107); Glucose 100 mg/dL (70-105); Osmolality,Calculated 283 (280-300); Potassium 3.8 mEq/L (3.5-5.1); Sodium 136 mEq/L (136-145); eGFR For African Americans > 60 (> 60); eGFR For Non-African Americans > 60 (> 60)
[2019-09-05] MEDS ORDERED: Isovue-370 500 ML BOTTLE IVP ONE (02:02)
[2019-09-05 03:01] LABS: Amphetamine Screen,Urine Negative ng/mL (Cutoff=1000); Barbiturate Screen,Urine Negative ng/mL (Cutoff=200); Benzodiazepines Screen,Urine Negative ng/mL (Cutoff=200); Cannabinoid Screen,Urine Negative ng/mL (Cutoff = 50); Cocaine Screen,Urine Negative ng/mL (Cutoff= 300); Opiate Screen,Urine Positive ng/mL (Cutoff=300); Phencyclidine Screen,Urine Negative ng/mL (Cutoff=25)
[2019-09-05] MEDS ORDERED: Naloxone 0.4 MG/ML INJ IVP PRN (03:03)
[2019-09-05] MEDS ORDERED: *HR* Promethazine 25 MG/ML VIAL IVP PRN (03:03)
[2019-09-05] MEDS ORDERED: Acetaminophen 325 MG TABLET PO PRN (03:04)
[2019-09-05] MEDS: 0.9 % Sodium Chloride 1,000 ML IVC SCH ×2 (03:23→12:30)
[2019-09-05] MEDS: *HR* OxyCODONE Immed Rel 5 MG TABLET PO PRN ×4 (03:28→20:52)
[2019-09-05 03:47] LABS: Adenovirus Not Detected (Not Detect); Bordetella Pertussis Not Detected (Not Detect); Chlamydophila pneumoniae Not Detected (Not Detect); Coronavirus 229E Not Detected (Not Detect); Coronavirus HKU1 Not Detected (Not Detect); Coronavirus NL63 Not Detected (Not Detect); Coronavirus OC43 Not Detected (Not Detect); Human Metapneumovirus Not Detected (Not Detect); Human Rhinovirus/Enterovirus Not Detected (Not Detect); Influenza A Subtype 2009 H1 Not Detected (Not Detect); Influenza A Untypeable Not Detected (Not Detect); Influenza B Not Detected (Not Detect); Mycoplasma pneumoniae Not Detected (Not Detect); Parainfluenza Virus 1 Not Detected (Not Detect); Parainfluenza Virus 2 Not Detected (Not Detect); Parainfluenza Virus 3 Not Detected (Not Detect); Parainfluenza Virus 4 Not Detected (Not Detect); Respiratory Syncytial Virus Not Detected (Not Detect)
[2019-09-05] MEDS: traMADol 50 MG TABLET PO PRN ×2 (05:09→23:17)
[2019-09-05] MEDS: *HR* Heparin 5,000 UNIT/ML VIAL SQ SCH ×3 (06:10→19:23)
[2019-09-05] MEDS: Finasteride 5 MG TABLET PO SCH (08:07)
[2019-09-05] MEDS: Metoprolol XL (24 HR) Succ 25 MG TAB.ER.24H PO SCH (08:09)
[2019-09-05] MEDS: lamoTRIgine 100 MG TABLET PO SCH ×2 (08:09→19:22)
[2019-09-05] MEDS: Gabapentin 300 MG CAPSULE PO SCH ×3 (08:09→19:22)
[2019-09-05] MEDS: Aspirin Enteric Coated 81 MG Tablet PO SCH (08:09)
[2019-09-05] MEDS: tiZANidine 4 MG TABLET PO PRN (12:13)
[2019-09-05] MEDS: Ranolazine 500 MG TAB.ER.12H PO SCH (19:22)
[2019-09-06] MEDS: *HR* OxyCODONE Immed Rel 5 MG TABLET PO PRN ×4 (01:55→15:12)
[2019-09-06] MEDS: *HR* Heparin 5,000 UNIT/ML VIAL SQ SCH ×3 (04:59→20:56)
[2019-09-06 06:57] LABS: Hemoglobin 12.3 g/dL (12.9-16.9); Mean Corpuscular HGB Conc 32.4 g/dL (31.6-35.5); Mean Corpuscular Hemoglobin 32.2 pg (28.0-33.3); Mean Corpuscular Volume 99.5 fL (83.0-100.0); Mean Platelet Volume 9.4 fL (9.4-12.4); Platelet Count 302 K/mcL (140-400); Red Blood Count 3.82 M/mcL (4.19-5.50); Red Cell Distribution Width 13.9 % (11.5-14.5); White Blood Count 27.5 K/mcL (4.3-11.1)
[2019-09-06 07:23] LABS: BUN/Creatinine Ratio 13 (6-26); Blood Urea Nitrogen 13 mg/dL (8-23); Calcium 8.4 mg/dL (8.6-10.3); Carbon Dioxide 25 mEq/L (23-29); Chloride 104 mEq/L (98-107); Chol/HDL Ratio 8.2 (0-4.9); Cholesterol 206 mg/dL (< 200); Glucose 103 mg/dL (70-105); HDL Cholesterol 25 mg/dL (40-59); Osmolality,Calculated 282 (280-300); Potassium 3.7 mEq/L (3.5-5.1); Sodium 136 mEq/L (136-145); Triglycerides 736 mg/dL (< 150); eGFR For African Americans > 60 (> 60); eGFR For Non-African Americans > 60 (> 60)
[2019-09-06] MEDS ORDERED: Artificial Tears SOLN 15 ML BOTTLE BOTH EYES PRN (08:34)
[2019-09-06] MEDS: Ranolazine 500 MG TAB.ER.12H PO SCH ×2 (10:52→20:29)
[2019-09-06] MEDS: Finasteride 5 MG TABLET PO SCH (10:53)
[2019-09-06] MEDS: Aspirin Enteric Coated 81 MG Tablet PO SCH (10:54)
[2019-09-06] MEDS: Metoprolol XL (24 HR) Succ 25 MG TAB.ER.24H PO SCH (10:54)
[2019-09-06] MEDS: Gabapentin 300 MG CAPSULE PO SCH ×3 (10:54→20:29)
[2019-09-06] MEDS: lamoTRIgine 100 MG TABLET PO SCH ×2 (10:54→20:31)
[2019-09-06] MEDS: traMADol 50 MG TABLET PO PRN (20:31)
[2019-09-06] MEDS: tiZANidine 4 MG TABLET PO PRN (22:57)
[2019-09-07 05:02] LABS: Mean Platelet Volume 9.3 fL (9.4-12.4)
[2019-09-07 05:03] LABS: Hematocrit 37.2 % (37.5-50.1); Hemoglobin 12.6 g/dL (12.9-16.9); Mean Corpuscular HGB Conc 33.9 g/dL (31.6-35.5); Mean Corpuscular Hemoglobin 33.9 pg (28.0-33.3); Platelet Count 292 K/mcL (140-400); Red Blood Count 3.72 M/mcL (4.19-5.50); White Blood Count 27.3 K/mcL (4.3-11.1)
[2019-09-07] MEDS: *HR* Heparin 5,000 UNIT/ML VIAL SQ SCH ×3 (05:22→20:22)
[2019-09-07 05:51] LABS: BUN/Creatinine Ratio 15 (6-26); Blood Urea Nitrogen 16 mg/dL (8-23); Calcium 8.3 mg/dL (8.6-10.3); Carbon Dioxide 23 mEq/L (23-29); Chloride 103 mEq/L (98-107); Glucose 98 mg/dL (70-105); Osmolality,Calculated 277 (280-300); Potassium 4.1 mEq/L (3.5-5.1); Sodium 133 mEq/L (136-145); eGFR For African Americans > 60 (> 60); eGFR For Non-African Americans > 60 (> 60)
[2019-09-07] MEDS: Finasteride 5 MG TABLET PO SCH (10:19)
[2019-09-07] MEDS: Metoprolol XL (24 HR) Succ 25 MG TAB.ER.24H PO SCH (10:20)
[2019-09-07] MEDS: Gabapentin 300 MG CAPSULE PO SCH ×3 (10:20→20:11)
[2019-09-07] MEDS: lamoTRIgine 100 MG TABLET PO SCH ×2 (10:20→20:13)
[2019-09-07] MEDS: Ranolazine 500 MG TAB.ER.12H PO SCH ×2 (10:20→20:11)
[2019-09-07] MEDS: Fenofibrate 54 MG TABLET PO SCH (10:33)
[2019-09-07] MEDS: *HR* OxyCODONE Immed Rel 5 MG TABLET PO PRN ×3 (10:33→20:20)
[2019-09-07] MEDS: Aspirin Enteric Coated 81 MG Tablet PO SCH (10:37)
[2019-09-07] MEDS ORDERED: *HR* Heparin 10,000 UNIT/10 ML VIAL ONE (10:39)
[2019-09-07] MEDS ORDERED: 0.9 % Sodium Chloride 1,000 ML ONE (10:40)
[2019-09-07] MEDS ORDERED: ISOVUE-370 200 ML INFUS..BTL ONE ×2 (10:40→13:19)
[2019-09-07] MEDS ORDERED: Heparin 1,000 UNITS/500 mL 500 ML ONE (10:40)
[2019-09-07] MEDS ORDERED: Nitroglycerin 1,000 MCG/10 ML VIAL IV ONE (10:40)
[2019-09-07] MEDS ORDERED: 0.9 % Sodium Chloride 2,000 ML ONE (12:22)
[2019-09-07] MEDS ORDERED: *HR* Midazolam HCl 2 MG/2 ML VIAL ONE (12:32)
[2019-09-07] MEDS ORDERED: *HR* FentaNYL (PF) 100 MCG/2 ML VIAL ONE (12:32)
[2019-09-07] MEDS ORDERED: *HR* Bivalirudin 250 MG VIAL IVC ONE (13:33)
[2019-09-07 14:23] LABS: Albumin 3.8 g/dL (3.5-5.7); Albumin/Globulin Ratio 1.7 (1.1-2.2); Bilirubin,Indirect 0.4 mg/dL (0.0-1.0); Bilirubin,Total 0.4 mg/dL (0.3-1.0); Globulin 2.2 g/dL (2.4-3.5)
[2019-09-07] MEDS ORDERED: *HR* Atropine Sulfate 1 MG/10 ML SYRINGE ONE (15:43)
[2019-09-07] MEDS: tiZANidine 4 MG TABLET PO PRN (23:53)
[2019-09-08] MEDS: *HR* OxyCODONE Immed Rel 5 MG TABLET PO PRN ×4 (00:18→12:31)
[2019-09-08] MEDS: *HR* Heparin 5,000 UNIT/ML VIAL SQ SCH (05:55)
[2019-09-08] MEDS: tiZANidine 4 MG TABLET PO PRN (07:31)
[2019-09-08 08:09] VITALS: BP 119/77
[2019-09-08] MEDS: Finasteride 5 MG TABLET PO SCH (08:34)
[2019-09-08] MEDS: Aspirin Enteric Coated 81 MG Tablet PO SCH (08:34)
[2019-09-08] MEDS: Metoprolol XL (24 HR) Succ 25 MG TAB.ER.24H PO SCH (08:34)
[2019-09-08] MEDS: Fenofibrate 54 MG TABLET PO SCH (08:34)
[2019-09-08] MEDS: Ranolazine 500 MG TAB.ER.12H PO SCH (08:34)
[2019-09-08] MEDS: Gabapentin 300 MG CAPSULE PO SCH (08:35)
[2019-09-08] MEDS: lamoTRIgine 100 MG TABLET PO SCH (08:35)
[2019-09-08 10:00] LABS: BUN/Creatinine Ratio 12 (6-26); Blood Urea Nitrogen 13 mg/dL (8-23); Calcium 8.7 mg/dL (8.6-10.3); Carbon Dioxide 22 mEq/L (23-29); Chloride 103 mEq/L (98-107); Glucose 95 mg/dL (70-105); Osmolality,Calculated 276 (280-300); Potassium 4.4 mEq/L (3.5-5.1); Sodium 133 mEq/L (136-145); eGFR For African Americans > 60 (> 60); eGFR For Non-African Americans > 60 (> 60)
== END 2019-09-08 13:52 | disposition home or self-care (01) ==
LOC: 3BNU → SUATTDRO 21:47 → 2NNU 09-07 13:38
PROVIDERS: ADMIT Student in an Organized Health Care Education/Training Program; ATTEND Internal Medicine

== ENCOUNTER 2019-11-17 17:31 | Observation (INO) ==
[2019-11-17] MEDS ORDERED: Ondansetron ODT 4 MG TAB.RAPDIS SL PRN (22:30)
[2019-11-17] MEDS ORDERED: Naloxone 0.4 MG/ML INJ IVP PRN (22:30)
[2019-11-17] MEDS: tiZANidine 4 MG TABLET PO PRN (23:15)
[2019-11-17] MEDS: *HR* OxyCODONE/APAP 5/325 TABLET PO PRN (23:15)
[2019-11-17] MEDS: Gabapentin 300 MG CAPSULE PO SCH (23:15)
[2019-11-17] MEDS: lamoTRIgine 100 MG TABLET PO SCH (23:15)
[2019-11-18 01:09] LABS: Basophils % 0.2 %; Eosinophils % 0.5 %; Hematocrit 39.2 % (37.5-50.1); Hemoglobin 12.8 g/dL (12.9-16.9); Immature Granulocytes % 0.2 % (0-4); Immature Reticulocyte % 7.1 % (11.0-38.0); Lymphocytes # 2.1 K/mcL (0.6-4.6); Lymphocytes % 48.3 %; Mean Corpuscular HGB Conc 32.7 g/dL (31.6-35.5); Mean Corpuscular Hemoglobin 30.9 pg (28.0-33.3); Mean Corpuscular Volume 94.7 fL (83.0-100.0); Mean Platelet Volume 9.1 fL (9.4-12.4); Monocytes # 0.4 K/mcL (0.0-1.3); Monocytes % 8.5 %; Neutrophils # 1.8 K/mcL (1.6-8.9); Platelet Count 120 K/mcL (140-400); Red Blood Count 4.14 M/mcL (4.19-5.50); Red Cell Distribution Width 14.4 % (11.5-14.5); Retculocyte # 0.05 M/mcL (0.05-0.10); Reticulocyte % 1.3 % (1.6-2.8); Segmented Neutrophils % 42.3 %; White Blood Count 4.3 K/mcL (4.3-11.1)
[2019-11-18 01:13] LABS: Bilirubin,Urine Negative (Negative); Blood,Urine Trace (Negative); Clarity,Urine Clear (Clear); Color,Urine Yellow (Yellow); Glucose,Urine (UA) Normal (Normal); Ketones,Urine Negative (Negative); Leukocyte Esterase,Urine Trace (Negative); Nitrite,Urine Negative (Negative); Protein,Urine Trace mg/dL (Neg-Trace); Specific Gravity,Urine 1.017 (1.010-1.025); Urobilinogen,Urine Normal (Normal)
[2019-11-18 01:15] LABS: Bacteria,Urine None Seen per hpf (None-Few); Hyaline Casts,Urine None Seen per lpf (None-Few); Squamous Epithelial Cell,Urine Few per lpf (None-Few)
[2019-11-18 01:16] LABS: Prothrombin Time 11.8 Seconds (9.4-12.1)
[2019-11-18 01:31] LABS: Amphetamine Screen,Urine Negative ng/mL (Cutoff=1000); Barbiturate Screen,Urine Negative ng/mL (Cutoff=200); Benzodiazepines Screen,Urine Negative ng/mL (Cutoff=200); Cannabinoid Screen,Urine Negative ng/mL (Cutoff = 50); Cocaine Screen,Urine Negative ng/mL (Cutoff= 300); Opiate Screen,Urine Positive ng/mL (Cutoff=300); Phencyclidine Screen,Urine Negative ng/mL (Cutoff=25)
[2019-11-18 01:34] LABS: Alanine Aminotransferase 17 Units/L (7-52); Albumin 4.1 g/dL (3.5-5.7); Albumin/Globulin Ratio 1.6 (1.1-2.2); Alkaline Phosphatase 55 Units/L (34-104); Aspartate Amino Transferase 25 Units/L (13-39); BUN/Creatinine Ratio 12 (6-26); Bilirubin,Total 0.5 mg/dL (0.3-1.0); Blood Urea Nitrogen 15 mg/dL (8-23); Calcium 9.3 mg/dL (8.6-10.3); Carbon Dioxide 25 mEq/L (23-29); Chloride 106 mEq/L (98-107); Chol/HDL Ratio 4.7 (0-4.9); Cholesterol 270 mg/dL (< 200); Globulin 2.6 g/dL (2.4-3.5); Glucose 144 mg/dL (70-105); HDL Cholesterol 58 mg/dL (40-59); LDL Cholesterol,Calculated 164 mg/dL (0-99); Osmolality,Calculated 287 (280-300); Phosphorous 2.5 mg/dL (2.7-4.5); Potassium 3.9 mEq/L (3.5-5.1); Sodium 137 mEq/L (136-145); Total Protein 6.7 g/dL (6.4-8.9); Triglycerides 241 mg/dL (< 150); eGFR For African Americans > 60 (> 60); eGFR For Non-African Americans > 60 (> 60)
[2019-11-18] MEDS: *HR* OxyCODONE/APAP 5/325 TABLET PO PRN ×5 (03:47→20:31)
[2019-11-18 07:55] LABS: Estimated Average Glucose 94 mg/dl
[2019-11-18] MEDS: lamoTRIgine 100 MG TABLET PO SCH ×2 (07:56→20:35)
[2019-11-18] MEDS: Finasteride 5 MG TABLET PO SCH (07:56)
[2019-11-18] MEDS: Aspirin Enteric Coated 81 MG Tablet PO SCH (07:56)
[2019-11-18] MEDS: Ranolazine 500 MG TAB.ER.12H PO SCH ×2 (07:56→20:33)
[2019-11-18] MEDS: Gabapentin 300 MG CAPSULE PO SCH ×3 (07:57→20:35)
[2019-11-18] MEDS: DASATINIB 70 MG PO SCH (07:57)
[2019-11-18] MEDS ORDERED: Metoprolol XL (24 HR) Succ 25 MG TAB.ER.24H PO SCH (09:00)
[2019-11-18] MEDS ORDERED: amLODIPine 5 MG TABLET PO SCH (11:00)
[2019-11-18] MEDS: amLODIPine 5 MG TABLET PO SCH (12:53)
[2019-11-18] MEDS: tiZANidine 4 MG TABLET PO PRN (14:56)
[2019-11-18] MEDS: *HR* Heparin 5,000 UNIT/ML VIAL SQ SCH (16:30)
[2019-11-19] MEDS: *HR* OxyCODONE/APAP 5/325 TABLET PO PRN ×4 (00:35→13:48)
[2019-11-19 06:00] LABS: Basophils % 0.3 %; Eosinophils % 0.9 %; Hemoglobin 13.2 g/dL (12.9-16.9); Immature Granulocytes % 0.3 % (0-4); Lymphocytes # 1.9 K/mcL (0.6-4.6); Lymphocytes % 61.4 %; Mean Corpuscular HGB Conc 33.8 g/dL (31.6-35.5); Mean Corpuscular Hemoglobin 31.4 pg (28.0-33.3); Mean Corpuscular Volume 92.6 fL (83.0-100.0); Mean Platelet Volume 9.1 fL (9.4-12.4); Monocytes # 0.3 K/mcL (0.0-1.3); Monocytes % 9.5 %; Neutrophils # 0.9 K/mcL (1.6-8.9); Platelet Count 114 K/mcL (140-400); Red Blood Count 4.21 M/mcL (4.19-5.50); Red Cell Distribution Width 13.9 % (11.5-14.5); Segmented Neutrophils % 27.6 %; White Blood Count 3.2 K/mcL (4.3-11.1)
[2019-11-19] MEDS: *HR* Heparin 5,000 UNIT/ML VIAL SQ SCH (06:02)
[2019-11-19 06:24] LABS: BUN/Creatinine Ratio 16 (6-26); Blood Urea Nitrogen 17 mg/dL (8-23); Calcium 9.5 mg/dL (8.6-10.3); Carbon Dioxide 20 mEq/L (23-29); Chloride 102 mEq/L (98-107); Glucose 109 mg/dL (70-105); Osmolality,Calculated 284 (280-300); Potassium 4.5 mEq/L (3.5-5.1); Sodium 136 mEq/L (136-145); eGFR For African Americans > 60 (> 60); eGFR For Non-African Americans > 60 (> 60)
[2019-11-19] MEDS ORDERED: Metoprolol XL (24 HR) Succ 25 MG TAB.ER.24H PO SCH (09:00)
[2019-11-19] MEDS: Finasteride 5 MG TABLET PO SCH (09:42)
[2019-11-19] MEDS: Ranolazine 500 MG TAB.ER.12H PO SCH (09:43)
[2019-11-19] MEDS: lamoTRIgine 100 MG TABLET PO SCH (09:43)
[2019-11-19] MEDS: amLODIPine 5 MG TABLET PO SCH (09:43)
[2019-11-19] MEDS: Gabapentin 300 MG CAPSULE PO SCH (09:43)
[2019-11-19] MEDS: Aspirin Enteric Coated 81 MG Tablet PO SCH (09:43)
[2019-11-19] MEDS: DASATINIB 70 MG PO SCH (09:44)
[2019-11-19 11:19] VITALS: BP 109/69
== END 2019-11-19 16:30 | disposition home or self-care (01) ==
LOC: 3BNU → SUATTDRO 19:41
PROVIDERS: ADMIT Internal Medicine; ATTEND Pharmacist

== ENCOUNTER 2020-04-24 12:07 | Inpatient (IN) ==
[2020-04-24] MEDS ORDERED: *HR* HYDROmorphone (PF) 1 MG/ML SYRINGE IVP ONE ×3 (12:22→20:44)
[2020-04-24 12:56] LABS: Basophils % 0.8 %; Eosinophils % 0.8 %; Hematocrit 41.4 % (37.5-50.1); Hemoglobin 14.1 g/dL (12.9-16.9); Immature Granulocytes % 0.8 % (0-4); Lymphocytes # 1.8 K/mcL (0.6-4.6); Lymphocytes % 45.4 %; Mean Corpuscular HGB Conc 34.1 g/dL (31.6-35.5); Mean Corpuscular Hemoglobin 33.4 pg (28.0-33.3); Mean Corpuscular Volume 98.1 fL (83.0-100.0); Mean Platelet Volume 8.6 fL (9.4-12.4); Monocytes # 0.5 K/mcL (0.0-1.3); Monocytes % 13.7 %; Neutrophils # 1.5 K/mcL (1.6-8.9); Platelet Count 278 K/mcL (140-400); Red Blood Count 4.22 M/mcL (4.19-5.50); Segmented Neutrophils % 38.5 %; White Blood Count 3.9 K/mcL (4.3-11.1)
[2020-04-24 13:08] LABS: Prothrombin Time 11.4 Seconds (9.4-12.1)
[2020-04-24 13:11] LABS: Activated Partial Thrombo Time 34.5 Seconds (26.0-36.0)
[2020-04-24 13:18] LABS: Alanine Aminotransferase 11 Units/L (7-52); Albumin 4.8 g/dL (3.5-5.7); Albumin/Globulin Ratio 1.8 (1.1-2.2); Alkaline Phosphatase 45 Units/L (34-104); Aspartate Amino Transferase 15 Units/L (13-39); BUN/Creatinine Ratio 12 (6-26); Bilirubin,Total 0.5 mg/dL (0.3-1.0); Blood Urea Nitrogen 14 mg/dL (8-23); Calcium 9.7 mg/dL (8.6-10.3); Carbon Dioxide 23 mEq/L (23-29); Chloride 104 mEq/L (98-107); Globulin 2.6 g/dL (2.4-3.5); Glucose 94 mg/dL (70-105); Osmolality,Calculated 280 (280-300); Potassium 3.9 mEq/L (3.5-5.1); Sodium 135 mEq/L (136-145); Total Protein 7.4 g/dL (6.4-8.9); Troponin I < 0.03 ng/mL (< 0.04); eGFR For African Americans > 60 (> 60); eGFR For Non-African Americans > 60 (> 60)
[2020-04-24] MEDS ORDERED: *HR* HYDROmorphone PF 0.5 MG/0.5 ML SYRINGE IVP STA (14:47)
[2020-04-24] MEDS ORDERED: Naloxone 0.4 MG/ML INJ IVP PRN (14:57)
[2020-04-24] MEDS ORDERED: Acetaminophen 325 MG TABLET PO PRN (14:57)
[2020-04-24] MEDS ORDERED: Ondansetron 4 MG/2 ML VIAL IVP PRN (14:57)
[2020-04-24] MEDS ORDERED: *HR* Promethazine 25 MG/ML VIAL IVP PRN (14:57)
[2020-04-24] MEDS ORDERED: MOM Conc 10 ML UD.LIQ PO PRN (14:57)
[2020-04-24] MEDS ORDERED: Mag Hydrox/Al Hydrox/Simeth 30 ML UDC PO PRN (14:57)
[2020-04-24] MEDS ORDERED: Artificial Tears SOLN 15 ML BOTTLE BOTH EYES PRN (15:00)
[2020-04-24] MEDS ORDERED: *HR* HYDROmorphone (PF) 1 MG/ML SYRINGE IVP STA (15:05)
[2020-04-24] MEDS: Gabapentin 300 MG CAPSULE PO SCH ×2 (16:13→20:05)
[2020-04-24] MEDS: *HR* HYDROcodone/Acet 5/325 mg TABLET PO PRN ×2 (16:14→23:13)
[2020-04-24] MEDS ORDERED: amLODIPine 5 MG TABLET PO SCH (16:15)
[2020-04-24] MEDS: *HR* Heparin 5,000 UNIT/ML VIAL SQ SCH (17:05)
[2020-04-24] MEDS: tiZANidine 4 MG TABLET PO PRN (20:05)
[2020-04-24] MEDS: lamoTRIgine 100 MG TABLET PO SCH (20:05)
[2020-04-24] MEDS: Ranolazine 500 MG TAB.ER.12H PO SCH (20:05)
[2020-04-24] MEDS ORDERED: Morphine Sulfate 2 MG/ML SYRINGE IVP ONE (20:37)
[2020-04-24] MEDS ORDERED: Isovue-370 500 ML BOTTLE IVP ONE (20:46)
[2020-04-24 20:51] LABS: ABG Base Excess -4 mEq/L (-2 to 3); ABG HCO3 25 mEq/L (21-27); ABG Oxygen Saturation 74 % (95-98); ABG PCO2 57 mmHg (35-45); ABG PH 7.24 pH Units (7.32-7.45); ABG PO2 46 mmHg (85-104); ABG TCO2 26 mEq/L (20-26)
[2020-04-24] MEDS ORDERED: 0.9 % Sodium Chloride 1,000 ML IVC SCH (21:00)
[2020-04-25 01:31] LABS: Basophils % 0.7 %; Eosinophils # 0.1 K/mcL (0.0-0.6); Eosinophils % 0.9 %; Hematocrit 37.1 % (37.5-50.1); Hemoglobin 12.6 g/dL (12.9-16.9); Immature Granulocytes % 0.6 % (0-4); Lymphocytes % 36.6 %; Mean Corpuscular Hemoglobin 34.1 pg (28.0-33.3); Mean Corpuscular Volume 100.5 fL (83.0-100.0); Mean Platelet Volume 8.7 fL (9.4-12.4); Monocytes # 0.6 K/mcL (0.0-1.3); Monocytes % 10.7 %; Neutrophils # 2.7 K/mcL (1.6-8.9); Platelet Count 249 K/mcL (140-400); Red Blood Count 3.69 M/mcL (4.19-5.50); Red Cell Distribution Width 14.1 % (11.5-14.5); Segmented Neutrophils % 50.5 %; White Blood Count 5.4 K/mcL (4.3-11.1)
[2020-04-25 01:47] LABS: BUN/Creatinine Ratio 12 (6-26); Blood Urea Nitrogen 15 mg/dL (8-23); Calcium 8.6 mg/dL (8.6-10.3); Carbon Dioxide 24 mEq/L (23-29); Chloride 103 mEq/L (98-107); Glucose 81 mg/dL (70-105); Osmolality,Calculated 276 (280-300); Potassium 3.8 mEq/L (3.5-5.1); Sodium 133 mEq/L (136-145); eGFR For African Americans > 60 (> 60); eGFR For Non-African Americans 58 (> 60)
[2020-04-25] MEDS: *HR* Heparin 5,000 UNIT/ML VIAL SQ SCH ×2 (05:18→17:09)
[2020-04-25] MEDS: *HR* HYDROcodone/Acet 5/325 mg TABLET PO PRN ×3 (05:25→18:20)
[2020-04-25] MEDS: Metoprolol XL (24 HR) Succ 50 MG TAB.ER.24H PO SCH (09:00)
[2020-04-25] MEDS: lamoTRIgine 100 MG TABLET PO SCH ×2 (09:43→20:37)
[2020-04-25] MEDS: Ranolazine 500 MG TAB.ER.12H PO SCH ×2 (09:43→20:37)
[2020-04-25] MEDS: Aspirin Enteric Coated 81 MG Tablet PO SCH (09:43)
[2020-04-25] MEDS: Gabapentin 300 MG CAPSULE PO SCH ×3 (09:44→20:37)
[2020-04-25] MEDS: Finasteride 5 MG TABLET PO SCH (09:44)
[2020-04-25] MEDS: Cholecalciferol (D-3) 1,000 UNIT (25MCG) TABLET PO SCH (09:44)
[2020-04-25] MEDS ORDERED: amLODIPine 5 MG TABLET PO SCH (11:45)
[2020-04-25] MEDS: tiZANidine 4 MG TABLET PO PRN (17:09)
[2020-04-26] MEDS: *HR* HYDROcodone/Acet 5/325 mg TABLET PO PRN ×4 (00:18→18:43)
[2020-04-26] MEDS: *HR* Heparin 5,000 UNIT/ML VIAL SQ SCH ×2 (05:22→16:38)
[2020-04-26 06:13] LABS: Hematocrit 38.8 % (37.5-50.1); Hemoglobin 13.2 g/dL (12.9-16.9); Mean Corpuscular Hemoglobin 33.9 pg (28.0-33.3); Mean Corpuscular Volume 99.7 fL (83.0-100.0); Mean Platelet Volume 8.7 fL (9.4-12.4); Platelet Count 239 K/mcL (140-400); Red Blood Count 3.89 M/mcL (4.19-5.50); Red Cell Distribution Width 14.1 % (11.5-14.5); White Blood Count 4.5 K/mcL (4.3-11.1)
[2020-04-26 06:37] LABS: BUN/Creatinine Ratio 20 (6-26); Blood Urea Nitrogen 19 mg/dL (8-23); Calcium 9.6 mg/dL (8.6-10.3); Carbon Dioxide 25 mEq/L (23-29); Chloride 105 mEq/L (98-107); Glucose 102 mg/dL (70-105); Osmolality,Calculated 286 (280-300); Sodium 137 mEq/L (136-145); eGFR For African Americans > 60 (> 60); eGFR For Non-African Americans > 60 (> 60)
[2020-04-26] MEDS: Metoprolol XL (24 HR) Succ 50 MG TAB.ER.24H PO SCH (08:59)
[2020-04-26] MEDS: Ranolazine 500 MG TAB.ER.12H PO SCH ×2 (08:59→21:52)
[2020-04-26] MEDS: amLODIPine 5 MG TABLET PO SCH (09:00)
[2020-04-26] MEDS: Gabapentin 300 MG CAPSULE PO SCH ×3 (09:00→21:51)
[2020-04-26] MEDS: lamoTRIgine 100 MG TABLET PO SCH ×2 (09:00→21:50)
[2020-04-26] MEDS: Aspirin Enteric Coated 81 MG Tablet PO SCH (09:00)
[2020-04-26] MEDS: Cholecalciferol (D-3) 1,000 UNIT (25MCG) TABLET PO SCH (09:00)
[2020-04-26] MEDS: Finasteride 5 MG TABLET PO SCH (09:00)
[2020-04-26] MEDS ORDERED: Morphine Sulfate 2 MG/ML SYRINGE IVP ONE (15:24)
[2020-04-27] MEDS: *HR* HYDROcodone/Acet 5/325 mg TABLET PO PRN ×2 (00:46→06:49)
[2020-04-27] MEDS: *HR* Heparin 5,000 UNIT/ML VIAL SQ SCH (05:59)
[2020-04-27 06:11] LABS: Hematocrit 40.1 % (37.5-50.1); Hemoglobin 13.3 g/dL (12.9-16.9); Mean Corpuscular HGB Conc 33.2 g/dL (31.6-35.5); Mean Corpuscular Hemoglobin 33.6 pg (28.0-33.3); Mean Corpuscular Volume 101.3 fL (83.0-100.0); Mean Platelet Volume 8.6 fL (9.4-12.4); Platelet Count 246 K/mcL (140-400); Red Blood Count 3.96 M/mcL (4.19-5.50); Red Cell Distribution Width 13.8 % (11.5-14.5); White Blood Count 5.3 K/mcL (4.3-11.1)
[2020-04-27 06:50] VITALS: BP 138/88
[2020-04-27] MEDS: Metoprolol XL (24 HR) Succ 50 MG TAB.ER.24H PO SCH (09:33)
[2020-04-27] MEDS: lamoTRIgine 100 MG TABLET PO SCH (09:33)
[2020-04-27] MEDS: Gabapentin 300 MG CAPSULE PO SCH (09:33)
[2020-04-27] MEDS: amLODIPine 5 MG TABLET PO SCH (09:34)
[2020-04-27] MEDS: Ranolazine 500 MG TAB.ER.12H PO SCH (09:34)
[2020-04-27] MEDS: Aspirin Enteric Coated 81 MG Tablet PO SCH (09:34)
[2020-04-27] MEDS: Finasteride 5 MG TABLET PO SCH (09:34)
[2020-04-27] MEDS: Cholecalciferol (D-3) 1,000 UNIT (25MCG) TABLET PO SCH (09:34)
== END 2020-04-27 10:19 | disposition home or self-care (01) | DRG 303 ==
LOC: 3BNU 12:07 → EMEROOARM 12:07 → 3BNU 15:22
PROVIDERS: ADMIT Internal Medicine; ATTEND Internal Medicine

== ENCOUNTER 2020-07-28 19:02 | Inpatient (IN) ==
[2020-07-28] MEDS ORDERED: Naloxone 0.4 MG/ML INJ IVP PRN (23:34)
[2020-07-28] MEDS ORDERED: Ondansetron 4 MG/2 ML VIAL IVP PRN (23:34)
[2020-07-29] MEDS ORDERED: *HR* HYDROmorphone (PF) 1 MG/ML SYRINGE IVP ONE ×2 (00:38→05:03)
[2020-07-29 00:43] LABS: Hematocrit 41.6 % (37.5-50.1); Hemoglobin 13.4 g/dL (12.9-16.9); Mean Corpuscular HGB Conc 32.2 g/dL (31.6-35.5); Mean Corpuscular Hemoglobin 32.8 pg (28.0-33.3); Mean Platelet Volume 9.4 fL (9.4-12.4); Platelet Count 285 K/mcL (140-400); Red Blood Count 4.08 M/mcL (4.19-5.50); White Blood Count 13.3 K/mcL (4.3-11.1)
[2020-07-29 00:52] LABS: INR 1.1; Prothrombin Time 12.1 Seconds (9.4-12.1)
[2020-07-29 01:04] LABS: Lymphocytes # 3.2 K/mcL (0.6-4.6); Monocytes # 1.1 K/mcL (0.0-1.3); Neutrophils # 8.5 K/mcL (1.6-8.9); Platelet Estimate Normal (Normal)
[2020-07-29 01:05] LABS: Alanine Aminotransferase 15 Units/L (7-52); Albumin 4.4 g/dL (3.5-5.7); Albumin/Globulin Ratio 1.8 (1.1-2.2); Alkaline Phosphatase 22 Units/L (34-104); Aspartate Amino Transferase 23 Units/L (13-39); BUN/Creatinine Ratio 10 (6-26); Bilirubin,Total 0.4 mg/dL (0.3-1.0); Blood Urea Nitrogen 15 mg/dL (8-23); Calcium 9.3 mg/dL (8.6-10.3); Carbon Dioxide 22 mEq/L (23-29); Chloride 106 mEq/L (98-107); Chol/HDL Ratio 5.2 (0-4.9); Cholesterol 236 mg/dL (< 200); Globulin 2.5 g/dL (2.4-3.5); Glucose 94 mg/dL (70-105); HDL Cholesterol 45 mg/dL (40-59); LDL Cholesterol,Calculated 137 mg/dL (< 100); Osmolality,Calculated 283 (280-300); Sodium 136 mEq/L (136-145); Total Protein 6.9 g/dL (6.4-8.9); Triglycerides 271 mg/dL (< 150); Troponin I < 0.03 ng/mL (< 0.04); eGFR For African Americans 57 (> 60); eGFR For Non-African Americans 47 (> 60)
[2020-07-29] MEDS: *HR* Heparin 5,000 UNIT/ML VIAL SQ SCH ×3 (05:49→20:13)
[2020-07-29] MEDS ORDERED: Regadenoson 0.4 MG/5 ML SYRINGE IVP ONE (09:31)
[2020-07-29] MEDS ORDERED: Ranolazine 500 MG TAB.ER.12H PO SCH ×2 (10:15→21:00)
[2020-07-29] MEDS: Aspirin Enteric Coated 81 MG Tablet PO SCH (11:46)
[2020-07-29] MEDS: Metoprolol XL (24 HR) Succ 50 MG TAB.ER.24H PO SCH (11:46)
[2020-07-29] MEDS: amLODIPine 5 MG TABLET PO SCH (11:47)
[2020-07-29] MEDS: 0.9 % Sodium Chloride 1,000 ML IVC SCH ×2 (11:49→21:45)
[2020-07-29] MEDS ORDERED: Morphine Sulfate 2 MG/ML SYRINGE IVP ONE (13:17)
[2020-07-29] MEDS ORDERED: tiZANidine 4 MG TABLET PO PRN (14:48)
[2020-07-29] MEDS ORDERED: Artificial Tears SOLN 15 ML BOTTLE BOTH EYES PRN (14:48)
[2020-07-29] MEDS: Gabapentin 300 MG CAPSULE PO SCH ×2 (16:23→20:08)
[2020-07-29] MEDS: Ranolazine 500 MG TAB.ER.12H PO SCH ×2 (16:23→20:07)
[2020-07-29] MEDS: lamoTRIgine 100 MG TABLET PO SCH (20:08)
[2020-07-29] MEDS: Morphine Sulfate 2 MG/ML SYRINGE IVP PRN (20:08)
[2020-07-30] MEDS: Morphine Sulfate 2 MG/ML SYRINGE IVP PRN ×2 (02:49→09:08)
[2020-07-30 04:26] LABS: Hematocrit 42.9 % (37.5-50.1); Hemoglobin 13.9 g/dL (12.9-16.9); Mean Corpuscular HGB Conc 32.4 g/dL (31.6-35.5); Mean Corpuscular Hemoglobin 32.9 pg (28.0-33.3); Mean Corpuscular Volume 101.4 fL (83.0-100.0); Mean Platelet Volume 9.2 fL (9.4-12.4); Platelet Count 279 K/mcL (140-400); Red Blood Count 4.23 M/mcL (4.19-5.50); Red Cell Distribution Width 12.9 % (11.5-14.5); White Blood Count 12.3 K/mcL (4.3-11.1)
[2020-07-30 04:46] LABS: BUN/Creatinine Ratio 14 (6-26); Blood Urea Nitrogen 17 mg/dL (8-23); C-Reactive Protein < 5 mg/L (Less than 10); Calcium 9.5 mg/dL (8.6-10.3); Carbon Dioxide 24 mEq/L (23-29); Chloride 103 mEq/L (98-107); Glucose 108 mg/dL (70-105); Osmolality,Calculated 282 (280-300); Sodium 135 mEq/L (136-145); eGFR For African Americans > 60 (> 60); eGFR For Non-African Americans 59 (> 60)
[2020-07-30] MEDS: *HR* Heparin 5,000 UNIT/ML VIAL SQ SCH (06:06)
[2020-07-30] MEDS: Ranolazine 500 MG TAB.ER.12H PO SCH (08:58)
[2020-07-30] MEDS: Metoprolol XL (24 HR) Succ 50 MG TAB.ER.24H PO SCH (08:59)
[2020-07-30] MEDS: amLODIPine 5 MG TABLET PO SCH (08:59)
[2020-07-30] MEDS: Aspirin Enteric Coated 81 MG Tablet PO SCH (08:59)
[2020-07-30] MEDS: Gabapentin 300 MG CAPSULE PO SCH (08:59)
[2020-07-30] MEDS ORDERED: IMATINIB MESYLATE 200 MG PO SCH (09:00)
[2020-07-30] MEDS: lamoTRIgine 100 MG TABLET PO SCH (09:00)
[2020-07-30] MEDS ORDERED: TESTOSTERONE 2.5 GM TP SCH (09:00)
[2020-07-30] MEDS ORDERED: Finasteride 5 MG TABLET PO SCH (09:00)
[2020-07-30] MEDS ORDERED: Cholecalciferol (D-3) 1,000 UNIT (25MCG) TABLET PO SCH (09:00)
[2020-07-30] MEDS ORDERED: BuPROPion XL (24 HR) 150 MG TABLET PO SCH (09:00)
[2020-07-30 11:06] VITALS: BP 156/78
[2020-07-30] MEDS ORDERED: *HR* HYDROmorphone (PF) 1 MG/ML SYRINGE IVP ONE (11:24)
== END 2020-07-30 14:22 | disposition home or self-care (01) | DRG 303 ==
LOC: 3BNU → SUATTDRO 22:08
PROVIDERS: ADMIT Internal Medicine; ATTEND Internal Medicine